=== PATIENT | female | born 1960 | race Caucasian/White ===

== ENCOUNTER → 2020-05-05 15:40 | Outpatient (CLI) | payer BC, SELFPAY ==
--- NOTE | ~2020-05-05 | MM_ITS ---
EXAMINATION: MM screening [facility] BI w [facility] HISTORY: Screening TECHNIQUE: Craniocaudal and mediolateral oblique 3-D tomosynthesis images were obtained and synthetic 2-D images were generated. CAD analysis was submitted and interpreted. COMPARISON: Comparison to multiple prior studies sequentially, with oldest reviewed study dated 01/24. BREAST PARENCHYMAL COMPOSITION: The breasts are extremely dense, which lowers the sensitivity of mamm ography. FINDINGS: There is no evidence of suspicious mass, calcification, or architectural distortion to sugg est malignancy in either breast. There has been no suspicious interval change. IMPRESSION: 1. No mammographic evidence of malignancy. 2. Recommend routine screening mammography in one year. BI-RADS Category 1: Negative Reviewed, dictated and finalized at location A. 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
== END ==
PROVIDERS: Visit Provider Nurse Practitioner Obstetrics & Gynecology
DX: Z12.31 Encounter for screening mammogram for malignant neoplasm of breast (principal)
CPT/HCPCS: 77063; 77067

== ENCOUNTER → 2021-06-17 12:20 | Outpatient (CLI) | payer BC, SELFPAY ==
--- NOTE | ~2021-06-17 | MM_ITS ---
EXAMINATION: MM screening [facility] w [facility] HISTORY: Screening mammogram TECHNIQUE: Craniocaudal and mediolateral oblique 3-D tomosynthesis images were obtained and synthetic 2-D images were generated. CAD analysis was submitted and interpreted. COMPARISON: 05/05/2020, 04/23/2019, 03/14/2018 BREAST PARENCHYMAL COMPOSITION: The breasts are extremely dense, which lowers the sensitivity of mamm ography. FINDINGS: There is no evidence of suspicious mass, calcification, or architectural distortion to sugg est malignancy in either breast. There has been no suspicious interval change. IMPRESSION: 1. No mammographic evidence of malignancy. 2. Recommend routine screening mammography in one year. BI-RADS Category 1: Negative Reviewed, dictated and finalized at location A. 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
== END ==
PROVIDERS: PCP Internal Medicine; Visit Provider Student in an Organized Health Care Education/Training Program
DX: Z12.31 Encounter for screening mammogram for malignant neoplasm of breast (principal)
CPT/HCPCS: 77063; 77067

== ENCOUNTER 2021-07-01 00:15 | Day surgery (SDC) | payer BC, SELFPAY ==
[2021-06-17 14:32] VITALS: BMI 19.6
--- NOTE | 2021-06-30 18:30 | PM.HPGS ---
History of Present Illness History of Present Illness Consent: Risks, benefits, and alternatives have been discussed and questions answered. Patient agrees to proceed with procedure. Chief complaint: change in bowel habits, diarrhea Narrative: Madyson Sims is a 60 year old female referred for colon cancer screening. She has had a change in bowel habits. Her stools have become much softer lately and that seems to take much longer for her to clean after a bowel movement. She has sensation that she is not completely emptied out Review of Systems Review of Systems: All systems reviewed & are unremarkable except as noted in HPI and below PMFSH Past Medical History Medical History Acid reflux Hyperlipidemia Hypertension Post-menopausal Seasonal allergies Seizures Thyroid disorder Surgical History Surgical History H/O partial thyroidectomy [place] teeth removed Family History Family History Sibling Hypertension Malignant neoplasm of prostate Mother Patient's mother is Father Patient's father is Social History Social History Smoking status: Never smoker Alcohol intake: never Living arrangements: with family Spiritual care concerns: No Meds Home Medications and Allergies Home Medications Medication Instructions Recorded Confirmed Type amlodipine 2.5 mg-benazepril 10 mg 1 cap PO DAILY 04/16/21 07/01/21 History capsule azelastine 205.5 mcg (0.15 %) 1 spray INTRANASAL QHS PRN 04/16/21 07/01/21 History nasal spray cholecalciferol (vitamin D3) 25 25 mcg PO DAILY 04/16/21 07/01/21 History mcg (1,000 unit) capsule estradiol 1 g VAGINAL 2XW #42.5 g 04/16/21 07/01/21 Rx famotidine 10 mg tablet 10 mg PO DAILY 04/16/21 07/01/21 History fexofenadine 180 mg tablet 180 mg PO DAILY 04/16/21 07/01/21 History guaifenesin 600 mg tablet, 600 mg PO BID 04/16/21 07/01/21 History extended release 12 hr lamotrigine 200 mg tablet 200 mg PO BID 04/16/21 07/01/21 History levetiracetam 500 mg tablet 500 mg PO Q12H 04/16/21 07/01/21 History levothyroxine 100 mcg tablet 100 mcg PO DAILY 04/16/21 07/01/21 History metoprolol tartrate 25 mg tablet 25 mg PO DAILY tablet 04/16/21 07/01/21 History metronidazole 0.75 % topical cream 1 applic TOPICAL DAILY PRN 04/16/21 07/01/21 History montelukast 10 mg tablet 10 mg PO DAILY 04/16/21 07/01/21 History multivitamin 1 tablet PO DAILY 04/16/21 07/01/21 History vitamin B complex 1 tablet PO DAILY 04/16/21 07/01/21 History simvastatin 40 mg PO DAILY 06/17/21 07/01/21 History Allergies Allergy/AdvReac Type Severity Reaction Status Date / Time ciprofloxacin [From Cipro] Allergy Intermediate Unknown Verified 07/01/21 06:49 latex Allergy Mild RASH ON Verified 07/01/21 06:49 CONTACT cefuroxime Allergy Unknown Unknown Verified 07/01/21 06:49 Contrast Media Allergy Severe HEAD AND Uncoded 07/01/21 06:49 EARS SWELL/RASH Exam Resp: Auscultation: clear to auscultation bilaterally Cardio: Rate: regular rate Rhythm: regular rhythm GI: GI Palp: Yes Soft to palpation and No Tenderness to palpation present (GI) Assessment and Plan Assessment and plan (1) Colon cancer screening: Code(s): Z12.11 - Encounter for screening for malignant neoplasm of colon Status: Acute Assessment and Plan: Colonoscopy with possible biopsy or polypectomy or cautery or injection of substances.
[2021-07-01 06:40] VITALS: BP 126/74; PULSE 85; RESP 16; TEMP 36.4; O2SAT 97; BMI 19.4
[2021-07-01] MEDS: LACTATED RINGERS 1,000 ML 150 ML IV CONT (07:05)
--- NOTE | 2021-07-01 07:12 | WPDANESEPPF ---
Anes - Initial Pre Proc Eval Procedure: Operation Date: 07/01/21 08:00 Proposed Procedures p Colonoscopy - Xander Segura MD Date/Time: 07/01/21 07:12 Surgeon: Xander Segura MD Pre Op Diagnosis: change in bowel habits, diarrhea Patient Data Age: 60 Gender: F Height: 1.7 m Weight: 56.3 kg Last Vital Signs Temp 36.4 C L 07/01/21 06:40 Pulse 85 07/01/21 06:40 Resp 16 07/01/21 06:40 BP 126/74 07/01/21 06:40 Pulse Ox 97 07/01/21 06:40 Allergies Allergy/AdvReac Type Severity Reaction Status Date / Time ciprofloxacin [From Cipro] Allergy Intermediate Unknown Verified 07/01/21 06:49 latex Allergy Mild RASH ON Verified 07/01/21 06:49 CONTACT cefuroxime Allergy Unknown Unknown Verified 07/01/21 06:49 Contrast Media Allergy Severe HEAD AND Uncoded 07/01/21 06:49 EARS SWELL/RASH Home Medications Medication Instructions Recorded Confirmed Type amlodipine 2.5 mg-benazepril 10 mg 1 cap PO DAILY 04/16/21 07/01/21 History capsule azelastine 205.5 mcg (0.15 %) 1 spray INTRANASAL QHS PRN 04/16/21 07/01/21 History nasal spray cholecalciferol (vitamin D3) 25 25 mcg PO DAILY 04/16/21 07/01/21 History mcg (1,000 unit) capsule estradiol 1 g VAGINAL 2XW #42.5 g 04/16/21 07/01/21 Rx famotidine 10 mg tablet 10 mg PO DAILY 04/16/21 07/01/21 History fexofenadine 180 mg tablet 180 mg PO DAILY 04/16/21 07/01/21 History guaifenesin 600 mg tablet, 600 mg PO BID 04/16/21 07/01/21 History extended release 12 hr lamotrigine 200 mg tablet 200 mg PO BID 04/16/21 07/01/21 History levetiracetam 500 mg tablet 500 mg PO Q12H 04/16/21 07/01/21 History levothyroxine 100 mcg tablet 100 mcg PO DAILY 04/16/21 07/01/21 History metoprolol tartrate 25 mg tablet 25 mg PO DAILY tablet 04/16/21 07/01/21 History metronidazole 0.75 % topical cream 1 applic TOPICAL DAILY PRN 04/16/21 07/01/21 History montelukast 10 mg tablet 10 mg PO DAILY 04/16/21 07/01/21 History multivitamin 1 tablet PO DAILY 04/16/21 07/01/21 History vitamin B complex 1 tablet PO DAILY 04/16/21 07/01/21 History simvastatin 40 mg PO DAILY 06/17/21 07/01/21 History Patient hx anesthesia problems: none Family hx anesthesia problems: none Results Review: All pre-operative results and documents have been reviewed as part of the pre-operative evaluation. [facility] Past Medical History Medical History Acid reflux Hyperlipidemia Hypertension Post-menopausal Seasonal allergies Seizures Thyroid disorder Surgical History Surgical History H/O partial thyroidectomy [place] teeth removed Family History Family History Sibling Hypertension Malignant neoplasm of prostate Mother Patient's mother is Father Patient's father is Social History Social History Smoking status: Never smoker Alcohol intake: never Living arrangements: with family Spiritual care concerns: No Anes - Eval Final PreProcedure Day of Procedure 07/01/21 07:12 Patient weight: normal Heart: regular rate and rhythm Lungs: clear to auscultation Airway: Mallampati scale class II Neurological: alert and oriented Last oral intake: >/= 8 hours ASA classification: III Emergent: no Anesthetic plan: proceed Anesthesia type and monitoring: general GIVS and standard monitoring Results Review: All pre-operative results and documents have been reviewed as part of the pre-operative evaluation. Informed Consent: The patient's anesthetic plan and its attendant risks and benefits were discussed with the patient/family/POA. Questions were solicited and answers provided to the satisfaction of the patient/family/POA.
[2021-07-01 08:24] VITALS: BP 96/61; PULSE 75; RESP 14; O2SAT 99
[2021-07-01 08:34] VITALS: BP 125/81; PULSE 68; RESP 15; O2SAT 100
[2021-07-01 08:44] VITALS: BP 146/87; PULSE 70; RESP 18; O2SAT 100
== END 2021-07-01 08:55 | disposition home or self-care (01) ==
PROVIDERS: PCP Internal Medicine; Visit Provider Internal Medicine Gastroenterology
PROC: 0DJD8ZZ Inspection of Lower Intestinal Tract, Via Natural or Artificial Opening Endoscopic (ICD-10-PCS; CPT 45378; principal; 2021-07-01 08:00)
DX: Z12.11 Encounter for screening for malignant neoplasm of colon (principal); R19.4 Change in bowel habit; K21.9 Gastro-esophageal reflux disease without esophagitis; E78.5 Hyperlipidemia, unspecified; I10 Essential (primary) hypertension; R56.9 Unspecified convulsions
CPT/HCPCS: 45378; J2704; J7120

== ENCOUNTER → 2021-11-11 10:48 | Outpatient (CLI) | payer BC, SELFPAY ==
--- NOTE | ~2021-11-11 | US_ITS ---
EXAMINATION: US pelvic complete w TV DATE: 11/11/2021 11:23 INDICATION: Pelvic and perineal pain. Right lower quadrant pain. Bloating. Comparison:No prior studies for comparison. TECHNIQUE: Multiple transabdominal and endovaginal sonographic images of the pelvis performed. FINDINGS: The uterus measures 4.8 x 1.9 x 2.6 cm. The endometrial complex measures 3 mm. The right ovary is not visualized. The left ovary is atrophic measuring 1.8 x 1.3 x 1 cm with normal flow in follicular changes. There is no free fluid in the pelvis. There are no abnormal masses seen on either side. IMPRESSION: 1. Unremarkable pelvic ultrasound. Reviewed, dictated and finalized at location A.
== END ==
PROVIDERS: PCP Internal Medicine; Visit Provider Student in an Organized Health Care Education/Training Program
DX: R10.2 Pelvic and perineal pain (principal)
CPT/HCPCS: 76830; 76856

== ENCOUNTER 2022-01-27 17:24 | Observation (INO) | payer BC, SELFPAY ==
--- NOTE | ~2022-01-27 | MR_ITS ---
EXAMINATION: MR brain/brain stem wo con DATE: 01/28/2022 08:53 INDICATION: Right eye visual loss. Facial numbness. TECHNIQUE: Magnetic resonance imaging (MRI) of the brain and brainstem was performed without intraven ous contrast. COMPARISON: Head CT 01/27/2022 FINDINGS: There are scattered areas of nonspecific increased T2-weighted signal intensity in the cere bral white matter, which is within normal limits for the patient's age. There is hutton matter heteroto wendi in right frontal lobe. There is no intracranial hemorrhage, acute infarction, or abnormal intracr anial mass lesion. The ventricles are normal in size. Septum pellucidum is absent. The orbits are nor mal. There is mild mucosal thickening in the paranasal sinuses. The mastoid air cells are normal. IMPRESSION: 1. 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 2. Absent septum pellucidum. Reviewed, dictated and finalized at location A.
--- NOTE | ~2022-01-27 | US_ITS ---
EXAMINATION: US carotid duplex BI DATE: 01/28/2022 09:12 INDICATION: Transient ischemic attack. TECHNIQUE: Grayscale, color Doppler, and pulsed Doppler images of the cervical carotid arteries were obtained. The degree of vessel stenosis is placed in one of the following categories: normal, <50%, 5 0-69%, >=70% but less than near-occlusion, near-occlusion, or total occlusion. Note that percent sten osis relative to normal distal artery lumen diameter is indirectly measured from velocity measurement s as described by Mp, et al. Radiology 2003; 229:340-346. COMPARISON: None. FINDINGS: RIGHT: The right common carotid artery (CCA) peak systolic velocity (PSV) is 106 cm/s. The right internal ca rotid artery (ICA) PSV is 113 cm/s. The right ICA end-diastolic velocity (EDV) is 49 cm/s. The right ICA/CCA PSV ratio is 1.1. Grayscale and color Doppler images yield an estimate of <50% diameter reduc tion from plaque in the ICA. There is antegrade flow in the right vertebral artery. LEFT: The left CCA PSV is 90 cm/s. The left ICA PSV is 89 cm/s. The left ICA EDV is 35 cm/s. The left ICA/C CA PSV ratio is 1.0. Grayscale and color Doppler images yield an estimate of <50% diameter reduction from plaque in the ICA. There is antegrade flow in the left vertebral artery. IMPRESSION: 1. <50% stenosis in the right internal carotid artery. 2. <50% stenosis in the left internal carotid artery. Reviewed, dictated and finalized at location A.
--- NOTE | ~2022-01-27 | CT_ITS ---
EXAMINATION: CT brain wo con DATE: 01/27/2022 19:25 INDICATION: Facial numbness. Right eye blindness. TECHNIQUE: Computed tomography (CT) of the head was performed without intravenous contrast. The dose- length product was 605.33 mGy-cm. Automated exposure control and iterative reconstruction technique w ere employed. COMPARISON: None FINDINGS: Brain parenchymal volume is normal for age. There are scattered mild periventricular and gabriel bcortical white matter changes, most likely related to small vessel ischemic disease (microangiopathy ). No ventriculomegaly or significant midline shift. Basilar cisterns are patent. There is intracrani al atherosclerosis. Mildly prominent dural calcifications along the anterior interhemispheric fissure . Paranasal sinuses and mastoids are pneumatized. No depressed skull fractures. IMPRESSION: 1. No acute intracranial abnormality. 2: Chronic age-related findings. Reviewed, dictated and finalized at location A.
--- NOTE | ~2022-01-27 | XR_ITS ---
XR chest 2V DATE: 01/27/2022 18:06 INDICATION: Visual problems yesterday and facial tingling today TECHNIQUE: PA and lateral views COMPARISON: 05/09/2018 PA and lateral chest FINDINGS: Bilateral hyperinflation suggesting obstructive airways disease. No pulmonary infiltrate or consolidation, pleural effusion or pulmonary vascular congestion or pneumothorax. Normal heart size. No hilar or mediastinal enlargement. Mild degenerative spurring of the thoracic spine. IMPRESSION: Bilateral hyperinflation; no active cardiopulmonary disease or significant change since Reviewed, dictated and finalized at location B. IMPRESSION: Bilateral hyperinflation; no active cardiopulmonary disease or sign ificant change since 05/09/2018
[2022-01-27 17:26] VITALS: BP 148/85; PULSE 78; RESP 16; TEMP 36.4; O2SAT 100
--- NOTE | 2022-01-27 17:29 | PC.NURSE ---
BS in triage 99
[2022-01-27 17:30] LABS: Glucose Point of Care 99 mg/dl (65-105)
--- NOTE | 2022-01-27 17:30 | ECG_ITS ---
Measurements Intervals [place] Rate: 73 P: 70 [place]: 193 QRS: 83 QRSD: 119 T: 59 QT: 406 QTc: 448 Interpretive Statements SINUS RHYTHM INCOMPLETE RIGHT BUNDLE BRANCH BLOCK BORDERLINE ST ABNORMALITY- ANTERIOR LEADS BASELINE ARTIFACT- I, AVR BORDERLINE ECG NO PREVIOUS ECG AVAILABLE FOR COMPARISON Electronically Signed On 01-27-2022 21:18:06 CDT by Haile Mcpherson D.O.
[2022-01-27 17:44] LABS: Basophils Percent Auto 0.5 % (0.2-1.2); Eosinophils Absolute Auto 0.1 K/mm3 (0-0.3); Eosinophils Percent Auto 1.2 % (0-4.4); Hematocrit 34.9 % (37.0-47.0); Hemoglobin 11.4 g/dL (12.0-15.0); Immature Granulocyte Absolute 0.01 K/mm3 (0.00-0.031); Immature Granulocyte Percent A 0.2 % (0-0.5); Lymphocytes Absolute Auto 1.38 K/mm3 (0.9-3.2); Lymphocytes Percent Auto 32.3 % (18.3-44.2); Mean Corpuscular HGB Conc 32.7 g/dl (32-36); Mean Corpuscular Volume 101.2 fl (80-100); Mean Platelet Volume 9.3 fl (7.4-10.4); Monocytes Absolute Auto 0.6 K/mm3 (0.1-0.6); Monocytes Percent Auto 13.6 % (2.6-8.5); Neutrophils Absolute Auto 2.2 K/mm3 (1.3-6.7); Neutrophils Percent Auto 52.2 % (45.5-73.1); Platelet Count Result 224 k/mm3 (150-375); Red Blood Count 3.45 M/mm3 (4.2-5.4); Red Cell Distribution Width 12.3 % (11.5-14.5); White Blood Count 4.3 K/mm3 (4.5-10.0)
[2022-01-27 17:53] LABS: Alanine Aminotransferase 19 U/L (6-35); Albumin Level 4.9 g/dL (3.5-5.1); Alkaline Phosphatase 120 U/L (38-126); Anion Gap 10 mmol/L (8-16); Aspartate Amino Transferase 27 U/L (14-36); Bilirubin,Total 0.6 mg/dL (0.2-1.3); Blood Urea Nitrogen 22 mg/dL (7-17); Calcium 9.9 mg/dL (8.4-10.2); Carbon Dioxide 27 mmol/L (22-30); Chloride 101 mmol/L (98-107); Estimated CRCL calculation 52 ml/min; Estimated Glomerular Filt Rate > 60; Glucose 100 mg/dL (65-110); INR 1.1; Lipase 247 U/L (23-300); Potassium 4.5 mmol/L (3.4-5.0); Prothrombin Time 13.6 Seconds (11.1-14.7); Sodium 138 mmol/L (137-145)
[2022-01-27 18:10] LABS: Troponin I < 0.012 ng/mL (0.000-0.034)
--- NOTE | 2022-01-27 19:15 | PC.NURSE ---
Patient report given to JACKY Galicia. All questions answered and care of patient transferred.
[2022-01-27 19:16] VITALS: PULSE 69
[2022-01-27 19:17] VITALS: BP 146/76; PULSE 70; RESP 12; O2SAT 100
--- NOTE | 2022-01-27 19:59 | ED.GENADULT ---
HPI - General Adult General Chief complaint: Unspecified Stated complaint: seeing meeks spots/facial tingling Time Seen by Provider: 01/27/22 19:05 History of Present Illness HPI narrative: yesterday afternoon patient stated that she noticed that her entire field of her right eye was blurry, this has never happened to her before, she saw an eye doctor the next day (today) who did a dilated pupil exam that was normal for detachment. About an hour afterwards she started feeling numbness in her entire face. Denies any weakness or numbness anywhere else, she does have a history of seizures for which she is on Keppra and lamotrigine and she has never had symptoms like this before with her seizures. She states that her symptoms have now largely resolved. Related Data Home Medications Medication Instructions Recorded Confirmed amlodipine 2.5 mg-benazepril 10 mg 1 cap PO DAILY 04/16/21 07/01/21 capsule azelastine 205.5 mcg (0.15 %) 1 spray intranasal QHS PRN Nasal 04/16/21 07/01/21 nasal spray Congestion cholecalciferol (vitamin D3) 25 25 mcg PO DAILY 04/16/21 07/01/21 mcg (1,000 unit) capsule famotidine 10 mg tablet 10 mg PO DAILY 04/16/21 07/01/21 fexofenadine 180 mg tablet 180 mg PO DAILY 04/16/21 07/01/21 (Amy Allergy) guaifenesin 600 mg tablet, 600 mg PO BID 04/16/21 07/01/21 extended release 12 hr (Mucinex) lamotrigine 200 mg tablet 200 mg PO BID 04/16/21 07/01/21 levetiracetam 500 mg tablet 500 mg PO Q12H 04/16/21 07/01/21 (Keppra) levothyroxine 100 mcg tablet 100 mcg PO DAILY 04/16/21 07/01/21 (Synthroid) metoprolol tartrate 25 mg tablet 25 mg PO DAILY 04/16/21 07/01/21 metronidazole 0.75 % topical cream 1 applic topical DAILY PRN Rosacia 04/16/21 07/01/21 montelukast 10 mg tablet 10 mg PO DAILY 04/16/21 07/01/21 multivitamin (Daily Multi-Vitamin 1 tablet PO DAILY 04/16/21 07/01/21 tablet) vitamin B complex (B 1 tablet PO DAILY 04/16/21 07/01/21 Complex-Vitamin B12 tablet) simvastatin 40 mg tablet 40 mg PO DAILY 06/17/21 07/01/21 Allergies Allergy/AdvReac Type Severity Reaction Status Date / Time ciprofloxacin [From Cipro] Allergy Intermediate Unknown Verified 11/04/21 08:23 latex Allergy Mild RASH ON Verified 11/04/21 08:23 CONTACT cefuroxime Allergy Unknown Unknown Verified 11/04/21 08:23 Contrast Media Allergy Severe HEAD AND Uncoded 11/04/21 08:23 EARS SWELL/RASH Review of Systems Review of Systems: CONST: No fever. HEENT: Right eye vision loss that is now resolved C/V: No chest pain RESP: No cough GI: No nausea or vomiting : No dysuria. M/S: No joint pain. SKIN: No rash. NEURO: No headache, did have numbness in her face that is now resolving PSYCH: [No depression] PMFSH Past Medical History Medical History Acid reflux Hyperlipidemia Hypertension Ovarian cyst Post-menopausal Seasonal allergies Seizures Thyroid disorder Surgical History Surgical History H/O partial thyroidectomy [place] teeth removed Family History Family History Sibling Hypertension Malignant neoplasm of prostate Mother Patient's mother is Father Patient's father is Social History Social History Smoking status: Never smoker Alcohol intake: never Spiritual care concerns: No Exam Narrative: EXAMINATION OF ORGAN SYSTEMS/BODY AREAS: Constitutional: Vital signs per nursing GENERAL:[No acute distress, non-toxic appearing.] HEAD: Normal with no signs of head trauma. EYES: EOMI, conjunctiva normal, PERRL, VA intact bilaterally with normal visual may ENT: Hearing grossly intact; subjective numbness to face but no facial weakness, droop LUNGS: Nonlabored breathing. HEART: [Regular rate and rhythm] ABD: [Soft], [nontender to palpatio
[2022-01-27] MEDS: ASPIRIN 81 MG CHEWABLE TABLET 324 MG PO (21:04)
[2022-01-27 21:45] VITALS: BP 142/78; PULSE 72; RESP 15; TEMP 36.6; O2SAT 100
[2022-01-27 21:47] LABS: Troponin I < 0.012 ng/mL (0.000-0.034)
[2022-01-27 22:00] VITALS: BP 140/73; PULSE 73; RESP 18; TEMP 36.1; O2SAT 100
[2022-01-27 22:16] LABS: SARS-CoV-2 RNA PCR Negative
--- NOTE | 2022-01-27 22:16 | ADMGEN ---
This patient, Madyson Sims, was admitted to Medical Room 257-01. Patient/family oriented to hospital policies and general routines including ID bracelet, bed and alarms, visiting hours, pain management, procedures, bathroom and other care routines, personal items, smoking policy, room service/diet, and visiting hours. Information on how to activate the Rapid Response Team has been discussed. Patient/Family are encouraged to report perceived risks to care and to ask questions if they do not understand what they are told or what they should do.
[2022-01-27 22:24] VITALS: BMI 19.8
[2022-01-27 22:25] VITALS: BP 140/73; PULSE 73; RESP 18; TEMP 36.1; O2SAT 100
--- NOTE | 2022-01-27 23:27 | PM.IMHP ---
H&P: HPI History of Present Illness Date/Time: 01/27/22 23:27 Chief Complaint: blurry vision Narrative: patient comes to the ER with right visual changes and numbness in her entire face. She states that she notice right eye was blurry entirely yesterday which is only in the upper border of for high and when she got up this was already resolved. She went to see an eye doctor today when she had a dilated pupil exam and was negative for any retinal abnormality. she was suggested diagnosis stroke is a possibility. While coming back from the appointment, She started feeling numbness in her entire face and hence she came to the ER for further evaluation. She denies any weakness and numbness anywhere else. She does have history of seizure but has not had any seizures for many years. She is on Keppra and lamotrigine which she regularly takes. She states her symptoms are completely resolve with her patient back to normal. She has not had any transient vision loss history in the past. He has history of hypertension hypothyroidism and hyperlipidemia. Delete that CT head done in the ER was negative for any acute stroke she is getting admitted for further evaluation and management. Review of Systems Review of Systems: - CONSTITUTIONAL: Denies weight loss, fever and chills. - HEENT: Denies changes in vision and hearing - RESPIRATORY: Denies SOB and cough. - CV: Denies palpitations and CP. - GI: Denies abdominal pain, nausea, vomiting and diarrhea. - : Denies dysuria and urinary frequency. - MSK: Denies myalgia and joint pain. - SKIN: Denies rash and pruritus. - NEUROLOGICAL: Denies headache and syncope. See HPI - PSYCHIATRIC: Denies recent changes in mood. Denies anxiety and depression. [facility] Past Medical History Medical History (Updated 01/27/22 @ 23:30 by Baljeet Laureano MD) Acid reflux Hyperlipidemia Hypertension Ovarian cyst Post-menopausal Seasonal allergies Seizures Thyroid disorder Surgical History Surgical History H/O partial thyroidectomy [place] teeth removed Family History Family History Sibling Hypertension Malignant neoplasm of prostate Mother Patient's mother is Father Patient's father is Social History Social History Smoking status: Never smoker Alcohol intake: never Substance use: never Spiritual care concerns: No Meds Home Medications and Allergies Home Medications Medication Instructions Recorded Confirmed Type amlodipine 2.5 mg-benazepril 10 mg 1 cap PO DAILY 04/16/21 01/27/22 History capsule azelastine 205.5 mcg (0.15 %) 1 spray intranasal QHS PRN Nasal 04/16/21 01/27/22 History nasal spray Congestion cholecalciferol (vitamin D3) 25 25 mcg PO DAILY 04/16/21 01/27/22 History mcg (1,000 unit) capsule famotidine 10 mg tablet 20 mg PO DAILY 04/16/21 01/27/22 History fexofenadine 180 mg tablet 180 mg PO DAILY 04/16/21 01/27/22 History (Amy Allergy) guaifenesin 600 mg tablet, 600 mg PO DAILY 04/16/21 01/27/22 History extended release 12 hr (Mucinex) lamotrigine 200 mg tablet 200 mg PO BID 04/16/21 01/27/22 History levetiracetam 500 mg tablet 500 mg PO Q12H 04/16/21 01/27/22 History (Keppra) levothyroxine 100 mcg tablet 100 mcg PO DAILY 04/16/21 01/27/22 History (Synthroid) metoprolol tartrate 25 mg tablet 25 mg PO DAILY 04/16/21 01/27/22 History metronidazole 0.75 % topical cream 1 applic topical DAILY PRN Rosacia 04/16/21 01/27/22 History montelukast 10 mg tablet 10 mg PO DAILY 04/16/21 01/27/22 History multivitamin (Daily Multi-Vitamin 1 tablet PO DAILY 04/16/21 01/27/22 History tablet) vitamin B complex (B 1 tablet PO DAILY 04/16/21 01/27/22 History Complex-Vitamin B12 tablet) simvastatin 40 mg tablet 40 mg PO DAILY 06/17/2101/27
[2022-01-28] VITALS (10 sets, daily range): BP systolic 112–127; BP diastolic 66–68; PULSE 72–89; RESP 14–16; TEMP 36.3–36.7; O2SAT 98–100
--- NOTE | 2022-01-28 | ECHO_ITS ---
Patient Info Name: Madyson Sims Age: 61 years : 1960 Gender: Female Ht: 67 in Wt: 126 lbs BSA: 1.64 m2 HR: 76 bpm BP: 112 / 66 mmHg Heart Rhythm: Sinus Rhythm Exam Date: 01/28/2022 2:06 PM Exam Location: [facility] Patient Status: Outpatient Admit Date: 01/27/2022 Staff Ordering Physician: Baljeet Laureano MD Clearance Coordinator: Paco Soler, JOSEPHINE, RT Attending Provider: Marilynn Bennett Exam Type: CA echo doppler color flow Study Info Indications - TIA Complete two-dimensional, color flow and Doppler transthoracic echocardiogram is performed. Strain analysis performed. Summary 1. Complete two-dimensional, color flow and Doppler transthoracic echocardiogram is performed. 2. Left ventricular chamber dimension is normal. 3. Left ventricular systolic function is normal, estimated at 65-70%. 4. No significant valvular dysfunction. 5. Normal sinus rhythm. 6. No likely cardioembolic source was identified. Left Ventricle Left ventricular chamber dimension is normal. Left ventricular systolic function is normal, estimated at 65-70%. The left ventricular diastolic function is normal. Global longitudinal strain is normal at 22 %. Right Ventricle Right ventricular chamber dimension is normal. Right ventricular systolic function is normal. Left Atria Left atrial chamber dimension is mildly enlarged. Right Atria Right atrial chamber dimension is normal. Aortic Valve The aortic valve is normal. Pulmonic Valve The pulmonic valve is normal. Mitral Valve The mitral valve has normal leaflets. The mitral valve annulus is mildly calcified. Tricuspid Valve The tricuspid valve leaflets are normal. There is trace tricuspid valve regurgitation. Pericardium/Pleural The pericardium appears normal. Aorta The aortic root size at the sinus of Valsalva is normal. Left Ventricular Outflow Tract Name Value Normal LVOT 2D LVOT Diameter 2.0 cm LVOT Doppler LVOT Peak Gradient 4 mmHg LVOT Mean Gradient 2 mmHg LVOT VTI 22 cm LVOT VTI/AV VTI Ratio 0.9 LVOT Stroke Volume 67 ml LVOT CO 5.4 l/min LVOT CI 3.3 l/min/m2 Mitral Valve Name Value Normal MV Doppler MV [place] 511 cm/s2 MV PHT 67 ms MV Area (PHT) 3.3 cm2 4.0-5.0 MV Diastolic Function MV E Peak Velocity 118 cm/s MV A Peak Velocity 85 cm/s MV E/A 1.4 MV Decel Time 2
[2022-01-28] MEDS: levETIRAcetam 500 MG TABLET PO ×3 (00:03→20:31)
[2022-01-28] MEDS: lamoTRIgine 100 MG TABLET 200 MG PO ×3 (00:03→20:31)
[2022-01-28 02:14] LABS: Cholesterol 164 mg/dL (0-200); HDL Direct 91 mg/dL; Triglycerides 38 mg/dL (<150)
[2022-01-28 02:28] LABS: Hemoglobin A1C 5.1 % (<5.7)
[2022-01-28 02:43] LABS: Erythrocyte Sedimentation Rate 22 mm/hr (0-20)
[2022-01-28 02:46] LABS: LDL Cholesterol Direct 45 mg/dL
[2022-01-28 02:47] LABS: Troponin I < 0.012 ng/mL (0.000-0.034)
[2022-01-28] MEDS: LEVOTHYROXINE SODIUM 100 MCG TABLET PO (06:53)
[2022-01-28] MEDS: guaiFENesin 12 HR 600 MG TABCR PO (09:37)
[2022-01-28] MEDS: VITAMIN B COMPLEX CAPSULE 1 CAP PO (09:37)
[2022-01-28] MEDS: lisinopriL 10 MG TABLET PO (09:38)
[2022-01-28] MEDS: MULTIVITAMINS THERAPEUTIC TAB (*BKC) 1 TABLET PO (09:38)
[2022-01-28] MEDS: SIMVASTATIN 20 MG TABLET 40 MG PO (09:38)
[2022-01-28] MEDS: CHOLECALCIFEROL 1,000 UNITS TABLET 1000 UNITS PO (09:39)
[2022-01-28] MEDS: amLODIPine BESYLATE 2.5 MG TABLET BY MOUTH (09:39)
[2022-01-28] MEDS: METOPROLOL SUCCINATE EXT REL 25 MG TABCR PO (09:40)
[2022-01-28] MEDS: MONTELUKAST SODIUM 10 MG TABLET PO (09:40)
[2022-01-28] MEDS: LORATADINE 10 MG TABLET PO (09:44)
[2022-01-28] MEDS: FAMOTIDINE 20 MG TABLET PO (09:44)
--- NOTE | 2022-01-28 11:08 | PM.IMPN ---
Progress Note: A&P Assessment and Plan (1) Facial numbness: Code(s): R20.0 - Anesthesia of skin Status: Acute Assessment and Plan: Now resolved etiology unknown labs unremarkable consult Neurology (2) Blurry vision, right eye: Code(s): H53.8 - Other visual disturbances Status: Acute Assessment and Plan: blurriness has resolved, however patient now has pain In the eye. Question ocular migraine?? 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 ECHO ordered (3) Seizures: Code(s): R56.9 - Unspecified convulsions Status: Acute Assessment and Plan: continue Keppra and lamotrigine patient follows with Neurology at [place] has been seizure-free since 2009 patient's symptoms were not of her typical aura (4) Hypertension: Code(s): I10 - Essential (primary) hypertension Status: Acute Assessment and Plan: Blood pressures have been Continue home medications. (5) Hyperlipidemia: Code(s): E78.5 - Hyperlipidemia, unspecified Status: Acute Assessment and Plan: Continue statin therapy (6) Thyroid disorder: Code(s): E07.9 - Disorder of thyroid, unspecified Status: Acute Assessment and Plan: continue levothyroxine Plan plan to discharge after ECHO and neurology evaluation and recommendations. Time Spent With Patient Time with patient: 15 - 25 minutes Subjective Date/time seen: 01/28/22 0713 this patient was examined at the bedside today in interval assessment since being admitted to the hospital for observation after presenting to the emergency room with complaints of having visual change of blurry vision in the right eye only of the upper hemisphere of her field of vision. She stated that this started approximately 1 and half to 2 days ago and was persistent until yesterday morning before going to see her Council Member. She states nothing was found on her eye exam and she return to work as normal. As the day went on she endorses that she began feeling a sensation of tingling on both sides of her face. There was no associated weakness, change in speech or any inability to blink or swallow. She called her physician who prompted her to route present to the emergency room immediately. In the emergency room CT of the head was performed that was negative for any acute findings. In addition her lab data was unremarkable. It is noted that she does have a history of seizure disorder that is controlled with Lamotrigine 200 mg b.i.d. and Keppra 500 mg q.12 hours. She follows with neurologist at [facility] and her last seizure was in 2009. She denies that any of her symptoms that she presented with is an aura that she experiences before any seizures. She states that last evening her sensation of tingling of her face finally subsided and her only sensation she has now is of an ache in her right eye. She denies any overt headache and she denies any nausea or vomiting. She has otherwise been in a normal state of health. She has no current complaints of chest pain, dyspnea, nausea, vomiting, diarrhea. Patient has an allergy to all contrast media therefore CTA was unable to be performed. In addition patient refused to have MRI with contrast. 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 she had carotid Dopplers performed that demonstrated less than 50% stenosis bilaterally and she had CT of the head that was negative. Review of Systems Review of Systems: All systems reviewed & are unremarkable except as noted in HPI and b
--- NOTE | 2022-01-28 14:34 | WPDNEURCNPN ---
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 echocardiogram is being done further recommendation will be according Consult date: 01/28/22 Time Seen: 13:30 Reason for consult: possible stroke HPI: Madyson Sims is a 61 year old female admitted to the hospital through the emergency room with complaints that her entire field of her right eye was blurry and it has never happened before she saw the primary care sales representative on day of admission who dilated the eyes there was no evidence of retinal detachment but then she started having the numbness of the entire face patient is known to be epileptic and has been on Keppra along with lamotrigine her other medications included amlodipine 2.5 mg with benazepril 10 mg daily. 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 lobe and echocardiogram is pending Review of Systems Review of Systems: All systems reviewed & are unremarkable except as noted in HPI and below PMFSH Past Medical History Medical History (Updated 01/27/22 @ 23:30 by Baljeet Laureano MD) Acid reflux Hyperlipidemia Hypertension Ovarian cyst Post-menopausal Seasonal allergies Seizures Thyroid disorder Surgical History Surgical History H/O partial thyroidectomy [place] teeth removed Family History Family History Sibling Hypertension Malignant neoplasm of prostate Mother Patient's mother is Father Patient's father is Social History Social History Smoking status: Never smoker Alcohol intake: never Substance use: never Spiritual care concerns: No Meds Home Medications and Allergies Home Medications Medication Instructions Recorded Confirmed Type amlodipine 2.5 mg-benazepril 10 mg 1 cap PO DAILY 04/16/21 01/27/22 History capsule azelastine 205.5 mcg (0.15 %) 1 spray intranasal QHS PRN Nasal 04/16/21 01/27/22 History nasal spray Congestion cholecalciferol (vitamin D3) 25 25 mcg PO DAILY 04/16/21 01/27/22 History mcg (1,000 unit) capsule famotidine 10 mg tablet 20 mg PO DAILY 04/16/21 01/27/22 History fexofenadine 180 mg tablet 180 mg PO DAILY 04/16/21 01/27/22 History (Amy Allergy) guaifenesin 600 mg tablet, 600 mg PO DAILY 04/16/21 01/27/22 History extended release 12 hr (Mucinex) lamotrigine 200 mg tablet 200 mg PO BID 04/16/21 01/27/22 History levetiracetam 500 mg tablet 500 mg PO Q12H 04/16/21 01/27/22 History (Keppra) levothyroxine 100 mcg tablet 100 mcg PO DAILY 04/16/21 01/27/22 History (Synthroid) metoprolol tartrate 25 mg tablet 25 mg PO DAILY 04/16/21 01/27/22 History metronidazole 0.75 % topical cream 1 applic topical DAILY PRN Rosacia 04/16/21 01/27/22 History montelukast 10 mg tablet 10 mg PO DAILY 04/16/21 01/27/22 History multivitamin (Daily Multi-Vitamin 1 tablet PO DAILY 04/16/21 01/27/22 History tablet) vitamin B complex (B 1 tablet PO DAILY 04/16/21 01/27/22 History Complex-Vitamin B12 tablet) simvastatin 40 mg tablet 40 mg PO DAILY 06/17/21 01/27/22 History Allergies Allergy/AdvReac Type Severity Reaction Status Date / Time ciprofloxacin [From Cipro] Allergy Intermediate Unknown Verified 11/04/21 08:23 latex Allergy Mild RASH ON Verified 11/04/21 08:23 CONTACT cefuroxime Allergy Unkn
[2022-01-29] VITALS: PULSE 82
[2022-01-29 04:00] VITALS: PULSE 73
[2022-01-29 04:27] VITALS: BP 116/67; PULSE 66; RESP 18; TEMP 35.8; O2SAT 99
[2022-01-29] MEDS: LEVOTHYROXINE SODIUM 100 MCG TABLET PO (05:52)
[2022-01-29 06:17] LABS: Basophils Percent Auto 0.4 % (0.2-1.2); Eosinophils Absolute Auto 0.1 K/mm3 (0-0.3); Eosinophils Percent Auto 1.6 % (0-4.4); Hematocrit 36.2 % (37.0-47.0); Hemoglobin 11.7 g/dL (12.0-15.0); Immature Granulocyte Absolute 0.02 K/mm3 (0.00-0.031); Immature Granulocyte Percent A 0.4 % (0-0.5); Lymphocytes Absolute Auto 1.56 K/mm3 (0.9-3.2); Lymphocytes Percent Auto 34.7 % (18.3-44.2); Mean Corpuscular HGB Conc 32.3 g/dl (32-36); Mean Corpuscular Hemoglobin 32.8 pg (26-34); Mean Corpuscular Volume 101.4 fl (80-100); Mean Platelet Volume 9.1 fl (7.4-10.4); Monocytes Absolute Auto 0.6 K/mm3 (0.1-0.6); Monocytes Percent Auto 12.2 % (2.6-8.5); Neutrophils Absolute Auto 2.3 K/mm3 (1.3-6.7); Neutrophils Percent Auto 50.7 % (45.5-73.1); Platelet Count Result 216 k/mm3 (150-375); Red Blood Count 3.57 M/mm3 (4.2-5.4); Red Cell Distribution Width 12.2 % (11.5-14.5); White Blood Count 4.5 K/mm3 (4.5-10.0)
[2022-01-29 06:31] LABS: Alanine Aminotransferase 18 U/L (6-35); Albumin Level 4.3 g/dL (3.5-5.1); Alkaline Phosphatase 103 U/L (38-126); Anion Gap 8 mmol/L (8-16); Aspartate Amino Transferase 24 U/L (14-36); Bilirubin,Total 0.6 mg/dL (0.2-1.3); Blood Urea Nitrogen 20 mg/dL (7-17); Calcium 9.4 mg/dL (8.4-10.2); Carbon Dioxide 30 mmol/L (22-30); Chloride 100 mmol/L (98-107); Estimated CRCL calculation 43 ml/min; Estimated Glomerular Filt Rate 50; Glucose 95 mg/dL (65-110); Magnesium 2.1 mg/dL (1.6-2.3); Sodium 138 mmol/L (137-145)
--- NOTE | 2022-01-29 07:12 | P.DS_ITS ---
DS: Admitting Diagnosis Discharge Date 01/29/2022 Admitting Diagnosis Facial numbness, blurry vision, seizures, hypertension, hyperlipidemia, thyroid disorder DS: Discharge Diagnosis Discharge Diagnosis (1) Facial numbness: Code(s): R20.0 - Anesthesia of skin Status: Acute Assessment and Plan: * Now resolved * etiology unknown * labs unremarkable * consult Neurology * 01/29/22: Will discharge today. 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 Unable to perform CTA and MRI with contrast secondary to patient's contrast allergy. ECHO resulted with normal LVSF with EF of 65-70%, normal diastolic function, and normal right ventricular function as well. (2) Blurry vision, right eye: Code(s): H53.8 - Other visual disturbances Status: Acute Assessment and Plan: * blurriness has resolved, however patient now has pain In the eye. * Question ocular migraine?? 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 * ECHO ordered * 01/29/22: See plan #1 (3) Seizures: Code(s): R56.9 - Unspecified convulsions Status: Acute Assessment and Plan: * continue Keppra and lamotrigine * patient follows with Neurology at [place] * has been seizure-free since 2009 * patient's symptoms were not of her typical aura (4) Hypertension: Code(s): I10 - Essential (primary) hypertension Status: Acute Assessment and Plan: * Blood pressures have been * Continue home medications. (5) Hyperlipidemia: Code(s): E78.5 - Hyperlipidemia, unspecified Status: Acute Assessment and Plan: * Continue statin therapy (6) Thyroid disorder: Code(s): E07.9 - Disorder of thyroid, unspecified Status: Acute Assessment and Plan: * continue levothyroxine Plan plan to discharge after ECHO and neurology evaluation and recommendations. DS: Summary Hospital Course Reason for hospitalization: Blurry Vision Hospital Course: This pleasant 61 year old female patient with significant PMH of seizure disord er, controlled well with last seizure in 2009, followed by Neurology at [facility], HTN, HLD, and hypothyroidism presented to the ER on 01/27/22 with complaints of having blurry vision in her right eye in the upper hemisphere field of vision only that had resolved, but she sought out exam by Opthalmology anyway and there were no acute findings. After seeing her artificial glass eye maker, she began having numbness/tingling in her face on both sides. It lasted well after the time she presented to the hospital. She never had any change in her speech and she never had any change in her gait. In the ER CT of the brain was performed and it was negative for any acute findings. Pt. was admitted for further workup and after admission, her tingling her symptoms further resolved. She had a negative MRI without contrast, and normal Carotid dopplers in addition to a normal ECHO with 65-70% EF and no cardioembolic source for any CVA. She was evaluated by Neurology, Dr. Laureano, and recommendations were made to continue her current medications and to also start a baby aspirin daily
--- NOTE | 2022-01-29 07:12 | PM.DS ---
DS: Admitting Diagnosis Discharge Date 01/29/2022 Admitting Diagnosis Facial numbness, blurry vision, seizures, hypertension, hyperlipidemia, thyroid disorder DS: Discharge Diagnosis Discharge Diagnosis (1) Facial numbness: Code(s): R20.0 - Anesthesia of skin Status: Acute Assessment and Plan: Now resolved etiology unknown labs unremarkable consult Neurology 01/29/22: Will discharge today. 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 Unable to perform CTA and MRI with contrast secondary to patient's contrast allergy. ECHO resulted with normal LVSF with EF of 65-70%, normal diastolic function, and normal right ventricular function as well. (2) Blurry vision, right eye: Code(s): H53.8 - Other visual disturbances Status: Acute Assessment and Plan: blurriness has resolved, however patient now has pain In the eye. Question ocular migraine?? 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 ECHO ordered 01/29/22: See plan #1 (3) Seizures: Code(s): R56.9 - Unspecified convulsions Status: Acute Assessment and Plan: continue Keppra and lamotrigine patient follows with Neurology at [place] has been seizure-free since 2009 patient's symptoms were not of her typical aura (4) Hypertension: Code(s): I10 - Essential (primary) hypertension Status: Acute Assessment and Plan: Blood pressures have been Continue home medications. (5) Hyperlipidemia: Code(s): E78.5 - Hyperlipidemia, unspecified Status: Acute Assessment and Plan: Continue statin therapy (6) Thyroid disorder: Code(s): E07.9 - Disorder of thyroid, unspecified Status: Acute Assessment and Plan: continue levothyroxine Plan plan to discharge after ECHO and neurology evaluation and recommendations. DS: Summary Hospital Course Reason for hospitalization: Blurry Vision Hospital Course: This pleasant 61 year old female patient with significant PMH of seizure disorder, controlled well with last seizure in 2009, followed by Neurology at [facility], HTN, HLD, and hypothyroidism presented to the ER on 01/27/22 with complaints of having blurry vision in her right eye in the upper hemisphere field of vision only that had resolved, but she sought out exam by Opthalmology anyway and there were no acute findings. After seeing her forest fire prevention specialist, she began having numbness/tingling in her face on both sides. It lasted well after the time she presented to the hospital. She never had any change in her speech and she never had any change in her gait. In the ER CT of the brain was performed and it was negative for any acute findings. Pt. was admitted for further workup and after admission, her tingling her symptoms further resolved. She had a negative MRI without contrast, and normal Carotid dopplers in addition to a normal ECHO with 65-70% EF and no cardioembolic source for any CVA. She was evaluated by Neurology, Dr. Laureano, and recommendations were made to continue her current medications and to also start a baby aspirin daily as we have to assume that she may have had a TIA based upon her symptoms. Pt. is stable for discharge at this time. She will be instructed to follow up with her Neurologist at [place] that she usually sees. Status at Discharge Functional status at discharge: independent ambulation Overall status at discharge: patient is back to baseline Time Spent with Patient Time attestation: T
[2022-01-29 08:00] VITALS: PULSE 84; RESP 18; O2SAT 99
[2022-01-29] MEDS: lisinopriL 10 MG TABLET PO (08:34)
[2022-01-29] MEDS: MONTELUKAST SODIUM 10 MG TABLET PO (08:34)
[2022-01-29] MEDS: MULTIVITAMINS THERAPEUTIC TAB (*BKC) 1 TABLET PO (08:34)
[2022-01-29] MEDS: CHOLECALCIFEROL 1,000 UNITS TABLET 1000 UNITS PO (08:34)
[2022-01-29] MEDS: LORATADINE 10 MG TABLET PO (08:35)
[2022-01-29] MEDS: VITAMIN B COMPLEX CAPSULE 1 CAP PO (08:35)
[2022-01-29] MEDS: METOPROLOL SUCCINATE EXT REL 25 MG TABCR PO (08:35)
[2022-01-29] MEDS: levETIRAcetam 500 MG TABLET PO (08:35)
[2022-01-29] MEDS: amLODIPine BESYLATE 2.5 MG TABLET BY MOUTH (08:35)
[2022-01-29] MEDS: guaiFENesin 12 HR 600 MG TABCR PO (08:35)
[2022-01-29] MEDS: lamoTRIgine 100 MG TABLET 200 MG PO (08:35)
[2022-01-29] MEDS: FAMOTIDINE 20 MG TABLET PO (08:35)
[2022-01-29] MEDS: SIMVASTATIN 20 MG TABLET 40 MG PO (08:35)
== END 2022-01-29 10:44 | disposition home or self-care (01) ==
LOC: ANHED 21:22 → ANH2MED 21:44
PROVIDERS: Emergency Medicine; Admitting Provider Internal Medicine; Emergency Provider Emergency Medicine; PCP Internal Medicine; Visit Provider Nurse Practitioner Adult Health
DX: R20.0 Anesthesia of skin (principal); H53.8 Other visual disturbances; I10 Essential (primary) hypertension; E78.5 Hyperlipidemia, unspecified; G40.909 Epilepsy, unspecified, not intractable, without status epilepticus; K21.9 Gastro-esophageal reflux disease without esophagitis; E89.0 Postprocedural hypothyroidism; I65.23 Occlusion and stenosis of bilateral carotid arteries; Z20.822 Contact with and (suspected) exposure to COVID-19; Z79.899 Other long term (current) drug therapy
CPT/HCPCS: 36415; 70450; 70551; 71046; 80053; 80061; 82948; 83036; 83690; 83735; 84443; 84484; 85025; 85610; 85652; 85730; 93005; 93306; 93880; 99285; A9270; C9803; G0378; U0003; U0005

== ENCOUNTER → 2022-07-01 11:32 | Outpatient (CLI) | payer BC, SELFPAY ==
--- NOTE | ~2022-07-01 | MM_ITS ---
EXAMINATION: MM screening jaswant BI w carmela HISTORY: Screening mammogram TECHNIQUE: Craniocaudal and mediolateral oblique 3-D tomosynthesis images were obtained and synthetic 2-D images were generated. CAD analysis was submitted and interpreted. COMPARISON: June 17, 2021, May 05, 2020, April 23, 2019 bilateral screening mammogram exa minations BREAST PARENCHYMAL COMPOSITION: The breasts are extremely dense, which lowers the sensitivity of mamm ography. FINDINGS: There is no evidence of suspicious mass, calcification, or architectural distortion to sugg est malignancy in either breast. There has been no suspicious interval change. IMPRESSION: 1. No mammographic evidence of malignancy. 2. Recommend routine screening mammography in one year. BI-RADS Category 1: Negative Reviewed, dictated and finalized at location A. AGE COOKER
== END ==
PROVIDERS: PCP Internal Medicine
DX: Z12.31 Encounter for screening mammogram for malignant neoplasm of breast (principal)
CPT/HCPCS: 77063; 77067

== ENCOUNTER 2022-08-31 15:21 | Emergency (ER) | payer BC, SELFPAY ==
--- NOTE | ~2022-08-31 | XR_ITS ---
EXAM: [id number] DATE: 08/31/2022 16:02 HISTORY: fall, PAIN BELOW PATELLA, LIMITED ROM . COMPARISON: None available. FINDINGS: Decreased mineralization. Nondisplaced fracture of the inferior pole of the patella. No ly tic or blastic lesion. Joint spaces and physes are maintained. No erosion or periosteal change. Mild anterior soft tissue swelling. Small joint effusion. IMPRESSION: Nondisplaced inferior pole patellar fracture. Reviewed, dictated and finalized at location K.
[2022-08-31 15:33] VITALS: BP 118/88; PULSE 78; RESP 16; TEMP 37.1; O2SAT 99
--- NOTE | 2022-08-31 15:44 | ED.FALL ---
HPI - Fall General Chief Complaint: Fall Stated Complaint: fall, left knee pain Time Seen by Provider: 08/31/22 15:34 History of Present Illness HPI Narrative: 61-year-old female presents to the emergency room for evaluation of left knee pain. Patient states that she stepped into her garage and missed stepped landing on her left knee and right hand. Patient states that she was able to stand up and walk after the injury. Denies any other injuries. Related Data Home Medications Medication Instructions Recorded Confirmed amlodipine 2.5 mg-benazepril 10 mg 1 cap PO DAILY 04/16/21 07/19/22 capsule azelastine 205.5 mcg (0.15 %) 1 spray intranasal QHS PRN Nasal 04/16/21 07/19/22 nasal spray Congestion cholecalciferol (vitamin D3) 25 25 mcg PO DAILY 04/16/21 07/19/22 mcg (1,000 unit) capsule famotidine 10 mg tablet 20 mg PO DAILY 04/16/21 07/19/22 fexofenadine 180 mg tablet 180 mg PO DAILY 04/16/21 07/19/22 (Amy Allergy) guaifenesin 600 mg tablet, 600 mg PO DAILY 04/16/21 07/19/22 extended release 12 hr (Mucinex) lamotrigine 200 mg tablet 200 mg PO BID 04/16/21 07/19/22 levetiracetam 500 mg tablet 500 mg PO Q12H 04/16/21 07/19/22 (Keppra) levothyroxine 100 mcg tablet 100 mcg PO DAILY 04/16/21 07/19/22 (Synthroid) metoprolol tartrate 25 mg tablet 25 mg PO DAILY 04/16/21 07/19/22 metronidazole 0.75 % topical cream 1 applic topical DAILY PRN Rosacia 04/16/21 07/19/22 montelukast 10 mg tablet 10 mg PO DAILY 04/16/21 07/19/22 multivitamin (Daily Multi-Vitamin 1 tablet PO DAILY 04/16/21 07/19/22 tablet) vitamin B complex (B 1 tablet PO DAILY 04/16/21 07/19/22 Complex-Vitamin B12 tablet) simvastatin 40 mg tablet 40 mg PO DAILY 06/17/21 07/19/22 Allergies Allergy/AdvReac Type Severity Reaction Status Date / Time ciprofloxacin [From Cipro] Allergy Intermediate Unknown Verified 08/31/22 15:45 latex Allergy Mild RASH ON Verified 08/31/22 15:45 CONTACT cefuroxime Allergy Unknown Unknown Verified 08/31/22 15:45 Contrast Media Allergy Severe HEAD AND Uncoded 08/31/22 15:45 EARS SWELL/RASH Review of Systems Review of Systems: CONSTITUTIONAL: Denies fever, chills, or sweats. EYES: Denies visual changes, redness, or discharge. ENT: Denies rhinorrhea, congestion, sore throat, or otalgia. CARDIOVASCULAR: Denies chest pain, palpitations, or edema. RESPIRATORY: Denies cough or dyspnea. GASTROINTESTINAL: Denies abdominal pain, nausea, vomiting, or diarrhea. GENITOURINARY: Denies dysuria or hematuria. SKIN: Denies rash or itching. MUSCULOSKELETAL: Left knee pain per HPI NEUROLOGIC: Denies headache, numbness, dizziness, or weakness. PSYCHIATRIC: Denies anxiety or depression. [facility] Past Medical History Medical History Acid reflux Hyperlipidemia Hypertension Ovarian cyst Post-menopausal Seasonal allergies Seizures Thyroid disorder Surgical History Surgical History H/O partial thyroidectomy [place] teeth removed Family History Family History Sibling Hypertension Malignant neoplasm of prostate Mother Patient's mother is Father Patient's father is Social History Social History Smoking status: Never smoker Alcohol intake: never Substance use: never Living arrangements: with family Spiritual care concerns: No Exam Narrative: GENERAL: Well-appearing, well-nourished, no physical limitations, and in no acute distress. HEAD: Normocephalic, atraumatic. EYES: Conjunctivae normal, PERRLA and EOMI. ENT: External nose normal, Nares clear, no rhinorrhea or epistaxis. Mucous membranes moist. Oropharynx without tonsillar hypertrophy exudate or other lesions. External ears normal, bilateral TMs normal bilaterally NECK: [place]
[2022-08-31] MEDS: NAPROXEN 500 MG TABLET PO (16:11)
== END 2022-08-31 16:54 | disposition home or self-care (01) ==
PROVIDERS: Emergency Provider Nurse Practitioner Family; PCP Internal Medicine
DX: S82.092A Other fracture of left patella, initial encounter for closed fracture (principal); E78.5 Hyperlipidemia, unspecified; I10 Essential (primary) hypertension; K21.9 Gastro-esophageal reflux disease without esophagitis; E89.0 Postprocedural hypothyroidism; W10.9XXA Fall (on) (from) unspecified stairs and steps, initial encounter
CPT/HCPCS: 73560; 99284; A9270

== ENCOUNTER 2022-12-05 08:59 | Outpatient (CLI) | payer BC, SELFPAY ==
--- NOTE | ~2022-12-05 | US_ITS ---
EXAMINATION: US VENOUS LOWER EXT NESTOR DATE: 12/05/2022 10:33 INDICATION: Varicose veins of the left lower limb with left lower limb swelling TECHNIQUE: Grayscale images without and with compression and Doppler images of the bilateral lower ex tremity veins were obtained. COMPARISON: None. FINDINGS: Right lower extremity: The right common femoral vein, profunda (deep) femoral vein, femoral vein, popliteal vein, peroneal t runk, posterior tibial veins and greater saphenous vein are patent. common femoral vein: no reflux femoral vein: no reflux popliteal vein: no reflux profunda femoral vein: no reflux Greater saphenous Origin: 6.8 mm no reflux Mid thigh: 2.3 mm no reflux Zzhxg-lrg-suhu: 1.9 mm no reflux Npcqf-[id number]-bvsq: 1.4 mm 1.5 seconds Mid calf: 1.6 mm 1.5 seconds Ankle: 2.0 mm no reflux Lesser saphenous Proximal: 5.9 mm no reflux Mid: 2.5 mm no reflux Distal: 1.4 mm no reflux Left lower extremity: The left common femoral vein, profunda femoral vein, femoral vein, popliteal vein, peroneal trunk, po sterior tibial veins and greater saphenous vein are patent. common femoral vein: [no reflux femoral vein: no reflux popliteal vein: no reflux profunda femoral vein: no reflux Greater saphenous Origin: 5.4 mm no reflux Mid thigh: 2.7 mm no reflux Jutii-whl-tqux: 2.7 mm no reflux Okgte-hge-mjss: 1.7 mm no reflux Mid calf: 1.4 mm no reflux Ankle: 1.6 mm no reflux Lesser saphenous Proximal: 4.5 mm no reflux Mid: 3.6 mm no reflux Distal: 1.6 mm no reflux IMPRESSION: 1. Patent bilateral lower extremity veins. No evidence of deep venous thrombosis. 2. No significant reflux in either lower extremity. Reviewed, dictated and finalized at location B. IMPRESSION: 1. Patent bilateral lower extremity veins. No evidence of deep venous thrombos is. 2. No significant reflux in either lower extremity.
== END 2022-12-05 09:00 | disposition home or self-care (01) ==
PROVIDERS: PCP Internal Medicine; Visit Provider Nurse Practitioner Adult Health
DX: I83.892 Varicose veins of left lower extremity with other complications (principal)
CPT/HCPCS: 93970

== ENCOUNTER 2023-09-29 13:12 | Emergency (ER) | payer BC, SELFPAY ==
[2023-09-29 13:25] VITALS: BP 142/81; PULSE 71; RESP 16; TEMP 36.6; O2SAT 100
--- NOTE | 2023-09-29 13:35 | ED.URI ---
HPI - URI/Sore Throat General Chief Complaint: Upper Respiratory Infection Stated Complaint: Cough and Wheezing Time Seen by Provider: 09/29/23 13:35 Source: patient Mode of arrival: ambulatory Limitations: no limitations History of Present Illness HPI Narrative: 62-year-old female presents with coughing, chest congestion for 1 week. Saw her primary care physician last week when cough for started and was prescribed azithromycin. Called primary care physician back after finishing is a firm ice and and still coughing and did a chest x-ray outpatient 2 days ago. Chest x-ray was normal. Primary care physician called patient and stated illness needed to run its course. Patient taking Mucinex DM at home without relief of coughing. Reports intermittent wheezing. Has albuterol inhaler that she is using once a day. Afebrile. All systems reviewed and negative except as noted above. Related Data Home Medications Medication Instructions Recorded Confirmed amlodipine 2.5 mg-benazepril 10 mg 1 cap PO DAILY 04/16/21 09/29/23 capsule azelastine 205.5 mcg (0.15 %) 1 spray intranasal QHS PRN Nasal 04/16/21 09/29/23 nasal spray Congestion cholecalciferol (vitamin D3) 25 25 mcg PO DAILY 04/16/21 09/29/23 mcg (1,000 unit) capsule famotidine 10 mg tablet 20 mg PO DAILY 04/16/21 09/29/23 fexofenadine 180 mg tablet 180 mg PO DAILY 04/16/21 09/29/23 (Amy Allergy) guaifenesin 600 mg tablet, 600 mg PO DAILY 04/16/21 09/29/23 extended release 12 hr (Mucinex) lamotrigine 200 mg tablet 200 mg PO BID 04/16/21 09/29/23 levetiracetam 500 mg tablet 500 mg PO Q12H 04/16/21 09/29/23 (Keppra) levothyroxine 100 mcg tablet 100 mcg PO DAILY 04/16/21 09/29/23 (Synthroid) metoprolol tartrate 25 mg tablet 25 mg PO DAILY 04/16/21 09/29/23 metronidazole 0.75 % topical cream 1 applic topical DAILY PRN Rosacia 04/16/21 09/29/23 montelukast 10 mg tablet 10 mg PO DAILY 04/16/21 09/29/23 multivitamin (Daily Multi-Vitamin 1 tablet PO DAILY 04/16/21 09/29/23 tablet) vitamin B complex (B 1 tablet PO DAILY 04/16/21 09/29/23 Complex-Vitamin B12 tablet) simvastatin 40 mg tablet 40 mg PO DAILY 06/17/21 09/29/23 itraconazole 100 mg capsule 200 mg PO DAILY 09/29/23 09/29/23 Allergies Allergy/AdvReac Type Severity Reaction Status Date / Time ciprofloxacin [From Cipro] Allergy Intermediate Unknown Verified 09/29/23 13:21 latex Allergy Mild RASH ON Verified 09/29/23 13:21 CONTACT cefuroxime Allergy Unknown Unknown Verified 09/29/23 13:21 Contrast Media Allergy Severe HEAD AND Uncoded 09/29/23 13:21 EARS SWELL/RASH Review of Systems Review of Systems: CONSTITUTIONAL: Denies fever, chills, or sweats. EYES: Denies visual changes, redness, or discharge. ENT: Denies rhinorrhea, congestion, sore throat, or otalgia. CARDIOVASCULAR: Denies chest pain, palpitations, or edema. RESPIRATORY: Reports cough, chest congestion, wheezing. Denies dyspnea. GASTROINTESTINAL: Denies abdominal pain, nausea, vomiting, or diarrhea. GENITOURINARY: Denies dysuria or hematuria. SKIN: Denies rash or itching. MUSCULOSKELETAL: Denies back pain, joint pain, or myalgia. NEUROLOGIC: Denies headache, numbness, or weakness. PSYCHIATRIC: Denies anxiety or depression. All other systems reviewed are negative, except as documented in HPI. [facility] Past Medical History Medical History Acid reflux Hyperlipidemia Hypertension Ovarian cyst Post-menopausal Seasonal allergies Seizures Thyroid disorder Surgical History Surgical History H/O partial thyroidectomy [place] teeth removed Family History Family History Sibling Hypertension Malignant neoplasm of prostate Mother Patient's mother is Father Patient's father is Social History Social History
== END 2023-09-29 13:48 | disposition home or self-care (01) ==
PROVIDERS: Emergency Provider Nurse Practitioner Family; PCP Internal Medicine
DX: J20.9 Acute bronchitis, unspecified (principal); K21.9 Gastro-esophageal reflux disease without esophagitis; E78.5 Hyperlipidemia, unspecified; I10 Essential (primary) hypertension; G40.909 Epilepsy, unspecified, not intractable, without status epilepticus; Z90.89 Acquired absence of other organs
CPT/HCPCS: 99213; G0463

== ENCOUNTER 2023-11-29 11:26 | Outpatient (CLI) | payer BC, SELFPAY ==
--- NOTE | ~2023-11-29 | MM_ITS ---
EXAMINATION: MM screening jaswant BI w carmela HISTORY: Screening TECHNIQUE: Craniocaudal and mediolateral oblique 3-D tomosynthesis images were obtained and synthetic 2-D images were generated. CAD analysis was submitted and interpreted. COMPARISON: Comparison to multiple prior studies sequentially, with oldest reviewed study dated 11/28. BREAST PARENCHYMAL COMPOSITION: Dense: The breasts are extremely dense, which lowers the sensitivity of mammography. FINDINGS: There is no evidence of suspicious mass, calcification, or architectural distortion to sugg est malignancy in either breast. There has been no suspicious interval change. IMPRESSION: 1. No mammographic evidence of malignancy. 2. Recommend routine screening mammography in one year. BI-RADS Category 1: Negative Reviewed, dictated and finalized at location B.
== END 2023-11-29 11:27 ==
PROVIDERS: PCP Internal Medicine
DX: Z12.31 Encounter for screening mammogram for malignant neoplasm of breast (principal)
CPT/HCPCS: 77063; 77067

== ENCOUNTER 2024-07-17 10:52 | Outpatient (CLI) | payer BC, SELFPAY ==
[2024-07-17 12:10] LABS: Thyroid Stimulating Hormone 0.927 uIU/mL (0.465-4.680)
[2024-07-17 12:16] LABS: Free T3 3.36 pg/mL (2.45-5.93)
--- OUTSIDE RECORDS SUMMARY | 2024-07-17 12:35 | XMS_ITS | Patient Health Summary ---
Author Organization [facility] Address [address] [place] [address] Care Team Providers Care Environmental Protection Forester Name Role Phone Unavailable Primary Care Provider Unavailabl e Note from [facility],non-owned Affiliates and Associated Physician Practices is amultiple site organization consisting of ambulatory clinics and hospital sitesin [place], [place], [place] and [place]. This disclosure is being madepursuant to the Care Everywhere program and may not contain all information available regarding this patient. Last updated 18.[facility] Social History Tobacco Use Types Packs/Day Years Used Date Smoking Tobacco: Never Assessed Sex and Gender Information Value Date Recorded Sex Assigned at Not on file Gender Identity Not on file Sexual Orientation Not on file Procedures * DERMATOPATHOLOGY(Performed 06/23/2021) Results * DERMATOPATHOLOGY (06/23/2021 12:00 AM [facility]) Case Report Dermatopathology Report Case: [id number] Authorizing Provider: Jesus Hurst Jr., MD Collected: 06/23/2021 12:00 AM Ordering Location: [facility] DermPath Lab Received: 06/24/2021 11:46 AM Pathologist: Doyle Patricio MD Specimen: Skin, right chin 2 4:31 PM [facility] DERMATOPATHOLOGY LABORATORY Final Diagnosis Specimen A. SKIN, right chin: BASAL CELL CARCINOMA, NODULAR TYPE (C44.319) 2 4:31 PM [facility] DERMATOPATHOLOGY LABORATORY Clinical History Basal cell carcinoma. 2 4:31 PM [facility] DERMATOPATHOLOGY LABORATORY Gross Description Specimen A: Received is one formalin filled container labeled with the patient's name and designated right chin. The specimen consists of a shave biopsy measuring 4x4x1 mm. Jar 0. 2 4:31 PM [facility] DERMATOPATHOLOGY LABORATORY Microscopic Description Specimen A. SKIN, right chin: Within the dermis there are aggregates of basaloid cells with a high nuclear to cytoplasmic ratio and peripheral palisading. 2 4:31 PM [facility] DERMATOPATHOLOGY LABORATORY Disclaimer An external and internal positive and negative controls are appropriate for the histochemical, immunohistochemical and immunofluorescence stain(s) in this case (if any), except where stated explicitly. The performance characteristics of the stain(s) cited in this report were developed and its performance characteristic determined by the Dermatopathology Laboratory at [facility], directed by Dr. Preston Patricio. These tests need not be, and therefore are not, approved by the [place] Food and Drug Administration. The tests are used for clinical purposes. Billing Codes Specimen Charges Stain Charges 24258 1 2 4:31 PM [facility] DERMATOPATHOLOGY LABORATORY Embedded Images 2 4:31 PM [facility] DERMATOPATHOLOGY LABORATORY Pathology/Cytolog y TISSUE SPECIMEN FROM SKIN / Unknown 06/23/2021 06/24/2021 11:46 AM APPLICATION TECHNICAL DESIGNER Jesus Hurst Jr., MD LAB - PATHOLOGY /CYTOLOGY ORDERABLES DERMATOPATHOLOGY LABORATORY [facility] - Department of Dermatology [facility] Medicine [address] [place] [address], [address] [phone]
--- OUTSIDE RECORDS SUMMARY | 2024-07-17 12:35 | XMS_ITS | Encounter Summary ---
Author Organization [facility] Address [address] [place] [address] Care Team Providers Care Drying Machine Operator Name Role Phone Unavailable Primary Care Provider Unavailabl e Encounter Details Date Type Department Care Team (Late st Contact Info) Description 06/24/2021 Lab Requisition [facility] DermPath Lab [address] [place] [id number] Jesus Hurst Jr., MD [address] [place] [address] Social History Tobacco Use Types Packs/Day Years Used Date Smoking Tobacco: Never Assessed Sex and Gender Information Value Date Recorded Sex Assigned at Not on file Gender Identity Not on file Sexual Orientation Not on file documented as of this encounter Plan of Treatment Not on file documented as of this encounter Procedures Procedure Name Priority Date/Time Associated Diagnosis Comments DERMATOPATHOLOGY Routine 06/23/2021 12:0 0 AM HIDE INSPECTOR documented in this encounter Results * DERMATOPATHOLOGY (06/23/2021 12:00 AM HIDE INSPECTOR) Case Report Dermatopathology Report Case: [id number] Authorizing Provider: Jesus Hurst Jr., MD Collected: 06/23/2021 12:00 AM Ordering Location: [facility] DermPath Lab Received: 06/24/2021 11:46 AM Pathologist: Doyle Patricio MD Specimen: Skin, right chin 2 4:31 PM HIDE INSPECTOR DERMATOPATHOLOGY LABORATORY Final Diagnosis Specimen A. SKIN, right chin: BASAL CELL CARCINOMA, NODULAR TYPE (C44.319) 2 4:31 PM HIDE INSPECTOR DERMATOPATHOLOGY LABORATORY Clinical History Basal cell carcinoma. 2 4:31 PM [facility] DERMATOPATHOLOGY LABORATORY Gross Description Specimen A: Received is one formalin filled container labeled with the patient's name and designated right chin. The specimen consists of a shave biopsy measuring 4x4x1 mm. Jar 0. 2 4:31 PM [facility] DERMATOPATHOLOGY LABORATORY Microscopic Description Specimen A. SKIN, right chin: Within the dermis there are aggregates of basaloid cells with a high nuclear to cytoplasmic ratio and peripheral palisading. 2 4:31 PM [facility] DERMATOPATHOLOGY LABORATORY Disclaimer An external and internal positive and negative controls are appropriate for the histochemical, immunohistochemical and immunofluorescence stain(s) in this case (if any), except where stated explicitly. The performance characteristics of the stain(s) cited in this report were developed and its performance characteristic determined by the Dermatopathology Laboratory at [facility], directed by Dr. Preston Patricio. These tests need not be, and therefore are not, approved by the [place] Food and Drug Administration. The tests are used for clinical purposes. Billing Codes Specimen Charges Stain Charges 77378 1 2 4:31 PM [facility] DERMATOPATHOLOGY LABORATORY Embedded Images 2 4:31 PM [facility] DERMATOPATHOLOGY LABORATORY Pathology/Cytolog y TISSUE SPECIMEN FROM SKIN / Unknown 06/23/2021 06/24/2021 11:46 AM HIDE INSPECTOR Jesus Hurst Jr., MD LAB - PATHOLOGY /CYTOLOGY ORDERABLES DERMATOPATHOLOGY LABORATORY [facility] - Department of Dermatology [address], [address] [phone] documented in this encounter Visit Diagnoses Not on filedocumented in this encounter
--- OUTSIDE RECORDS SUMMARY | 2024-07-17 12:35 | XMS_ITS | Data Portability ---
Author Organization [facility] Address [address] [place] [address] Assessment Encounter Date Assessment Date Assessment LastModified by Organization Details LastModified Time 03/16/2020 03/16/2020 Annual gynecological exam performed. Patient will come back in a year unless there are new symptoms. Not available 03/16/2020 10:20:19 Plan of Treatment Reminders Order Date Submit Date Provider Last Modified By Organization Details Last Modified Time Details Appointments None recorded. Lab None recorded. Referral None recorded. Procedures None recorded. Surgeries None recorded. Imaging None recorded. Medication Orders estradiol 0.01% (0.1 mg/gram) vaginal cream 2019 020 INTERFACE [id number], [address] [place], [address], 0 10:55:05 Patient TargetsNo targets recorded. Patient InstructionsNo instructions recorded. Reason for Referral None Reported. Results Created Date Observation Date Name Description Value Unit Range Abnormal Flag Note LastModifiedBy Organization Detail LastModifiedTime 03/16/2003/19/2020 pap, LB Pap test thin prep Negati ve for Intrae pithel ial Lesion or Malign gordo normal ACCES NHUNG #: 20-PS [id number] 10 Sourc e: Cervi isabel/E ndoce rvica l LMP: 09/24 Date Taken : 03/16 Speci men Type: ThinP rep Vial Date Repor nicola: 03/19 Clini isabel Data: Cytot ech: Sammy Contreras r,CT( ASCP) Date Repor nicola: 03/18 Revie wed By: Teri A. Snodd y, CT( CP) Speci men Adequ acy: Satis facto ry for evalu ation No endoc ervic al/tr ansfo rmati on zone compo nent prese nt Gener al Categ oriza tion: NEGAT DOUGLAS FOR INTRA EPITH ELIAL PHYLLIS N OR MALIG INGE This speci men has been ana rosa zed by the ThinP rep Imagi ng Syste m, an inter activ e compu ter syste m which jorge ts the lab in the devone bao of ThinP rep Pap Test slide s. Follo wing imagi ng, the slide was revie wed by a Cytot echno logis t and/o r Patho logis t. D N A A S S A Y S R E P O R T TEST NAME RESUL TS ----- ---- ----- -- HPV High Risk Marcell castanon (TMA) ThinP rep Vial The human papil lomav irus (HPV) High Risk Marcell castanon is an FDA-a pprov ed in-vi tro ampli fied nucle ic acid test for the quali tativ e detec tion of E6/E7 viral mRNA. Resul ts shoul d be corre lated with patie nt prese ntati on, histo ry, cervi isabel cytol ogy and other clini isabel and labor atory findi ngs. See https ://eMindful/s ites/ defau lt/fi les/2 018-0 3/AW- 09160 _002_ 01.pd f for furth er infor matbrenda n. Test perfo rmed by [facility], d/b/a Lisa evans, [address], [place] [address] , Jenna Gonsalez ra, DO, Labor atory Direc tor. HPV High Risk *HPV NOT DETEC NICOLA (TYPE S 16, 18, 31, 33, 35, 39, 45, 51, 52, 56, 58, 59, 66, 68) *HPV: The human papil lomav irus (HPV) High Risk Marcell castanon is an FDA-a pprov ed in-vi tro ampli fied nucle ic acid test for the quali tativ e detec tion of E6/E7 viral mRNA. [facility] shoul d be corre lated with patie nt prese ntati on, histo ry, cervi isabel cytol ogy and other clini isabel and labor atory findi ngs. See https ://Enviance wPropertyBridge/s barbaraes/ josefina lt/fi les/2 018-0 3/AW- 71539 _002_ 01.pd f for furth er infor juan n. Test [facility]fo rmed by [facility], d/b/a [facility], [address], [place] [address] , Jenna Gonsalez ra, DO, Labor atory Direc tor. End of t Techn ical servi enedina provi ded by [facility], d/b/a [facility], [address] [place] [address] Jeff Villalobos MD, [facility] Dire tor. Case revie wed and diagn osis rende red at [facility], d/b/a [facility], [address] [place] [address] Jeff Villalobos MD, [facility] [employer] Dire tor. CONFI DENTI AL Not Available [facility] ([facility]) [address], [place], [address], 03/19/2020 09:36:09 03/16/20 20 03/18/2020 HPV DNA, high- risk HPV high risk NOT DETECT ED normal Not Available [facility] ([facility]) [address], [place], [address], 03/19/2020 09:36:10 05/05/20 20 05/05/2020 MAMMO , scree bao, bilat eral No observ ation record ed. [facility] [address], [place], [address], 05/11/2020 20:15:52 Result Notes None recorded. Problems Name Problem SNOMED Code Status Onset Date Resolution Date Notes Provider Name and Address Organization Details Recorded Time Specializ ed medical examinati on Active 2014 Gynecolog ical Examinati on;Record ed Elsewhere : No Locati on: [facility] So urce: EHR Chron ic: N Practic e ID: 0001 Bill able Time: 08:30:00 AM Not Available [facility] 0 21:46:26 Leukocyto sis 312404227 Active 2014 LEUKOCYTO SIS NOS;Recor ded Elsewhere : No Locati on: [facility] So urce: EHR Chron ic: N Practic e ID: 0001 Bill able Time: 08:30:00 AM Not Available [facility] 0 21:46:26 Microscop ic hematuria 911809998 Active 2013 HEMATURIA MICROSCOP IC;Practi ce ID: 0001 Not Available [facility] 0 21:46:26 Screening for malignant neoplasm of rectum Active 2013 Screening for malignant neoplasms of the rectum;Pr actice ID: 0001 Not Available [facility] 0 21:46:26 Adult health examinati on Active 2014 Routine general medical examinati on at a health care facility; Practice ID: 0001 Not Available [facility] 0 21:46:27 Screening for malignant neoplasm of cervix Active 2014 SCREEN MAL NEOP-CERV IX;Practi ce ID: 0001 Not Available [facility] 0 21:46:27 Carbuncle 470298631 Active 2014 Carbuncle , unspecifi ed;Practi ce ID: 0001 Not Available [facility] 0 21:46:27 Evaluatio n finding Active 2015 Hematuria , unspecifi ed;Practi ce ID: 0001 Not Available [facility] 0 21:46:[address] Concept Active 2015 Encntr for acute dialysis nurse exam (general) (routine) w/o abn findings; Practice ID: 0001 Not Available [facility] 0 21:46:27 Acute vaginitis 00711151 Active 2015 Acute vaginitis ;Practice ID: 0001 Not Available [facility] 0 21:46:27 Pelvic and perineal pain 440173924 Active 2015 Pelvic and perineal pain;Prac ashley ID: 0001 Not Available [facility] 0 21:46:27 Benign essential microscop ic hematuria 43970604937 9109 Active 2015 Benign essential microscop ic hematuria ;Practice ID: 0001 Not Available [facility] 0 21:46:27 Imaging of abdomen abnormal 722568654 Active 2015 Abn findings on dx imaging of abd regions, inc retroperi ton;Pract ice ID: 0001 Not Available [facility] 0 21:46:28 Polyp of corpus uteri 68872119 Active 2016 Polyp of corpus uteri;Pra ctice ID: 0001 Not Available [facility] 0 21:46:28 Polyp of cervix 47290840 Active 2016 Polyp of cervix uteri;Pra ctice ID: 0001 Not Available [facility] 0 21:46:28 Urinary tract infectiou s disease 57818353 Active 2016 Urinary tract infection , site not specified ;Practice ID: 0001 Not Available [facility] 0 21:46:[address] Concept Active 2016 Encounter for general adult medical exam w abnormal findings; Practice ID: 0001 Not Available [facility] 0 21:46:29 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 Oth noninflam matory disorders of vulva and perineum; Practice ID: 0001 Not Available [facility] 0 21:46:30 Atrophic vaginitis 69635933 Active 2018 Postmenop ausal atrophic vaginitis ;Practice ID: 0001 Not Available [facility] 0 21:46:[address] Concept Active 2018 Encntr for general adult medical exam w/o abnormal findings; Practice ID: 0001 Not Available [facility] 0 21:46:31 Vaginolab ial hernia Active 2017 Other specified noninflam matory disorders of vagina;Re corded Elsewhere : No Locati on: [facility] So urce: EHR Chron ic: N Practic e ID: 0001 Bill able Time: 02:45:00 PM Not Available [facility] 0 21:46:32 Cyst of ovary Active 2015 Unspecifi ed ovarian cyst, unspecifi ed side;Cameron rded Elsewhere : No Locati on: [facility] So urce: EHR Chron ic: N Practic e ID: 0001 Bill able Time: 10:48:34 AM Not Available [facility] 0 21:46:33 Problem Notes None recorded. Procedures Surgical History Date Name Laterality Status Provider Name and Address Organization Details Recorded Time Colonoscopy completed [place] [facility] 03/16/2020 10:25:26 Hysteroscopy completed [facility] 03/16/2020 10:25:33 cervical polypectomy completed [facility] 03/16/2020 10:26:00 thyroidectomy completed [facility] 03/16/2020 10:27:11 Imaging Results Imaging Date Name Status LastModified by Organiz ation Details LastModified Time 05/05/2020 MAMMO, screening, bilateral completed [facility] [address], [place], [address], 05/11/2020 20:15:52 Procedure Notes None recorded. Medical Equipment None Reported. Allergies Allergen ID Allergen Name Allergen Category Reaction Reaction Severity Criticality Documentation Date Start Date Code Code System Note Provider Name and Address Organization Details Recorded Time 2642 cefuroxim e Not available Not available Not available Not available 03/16/2020 2194 RxNorm Disha carlos [facility] 0 10:20:59 2643 ciproflox acin medicatio n Not available Not available Not available 03/16/2020 2551 RxNorm Disha carlos [facility] 0 10:21:06 2644 Iodinated contrast media (substanc e) medicatio n Not available Not available Not available 03/16/2020 06833 2004 SNOMED Disha carlos, [facility] 0 10:21:15 2645 latex environme nt,medica tion Not available Not available Not available 03/16/2020 62573 91 RxNorm Disha carlos, [facility] 0 10:21:19 2646 Product containin g penicilli n (product) medicatio n Not available Not available Not available 03/16/2020 94467 8001 SNOMED Disha carlos, [facility] 0 10:21:25 Medications Name Sig Start Date Stop Date Status Note LastModified by Organization Details LastModified Time Keppra 500 mg tablet take 1 tablet by oral route 2 times every day active Prescrib ed Elsewher e: Yes Loca tion: [facility] odify By: munira bergeronuntmilan DateTime : 01/24/20 14 08:30:00 AM Not Available Not Available Not Available azithromy kurt 250 mg tablet take 2 tablet by oral route every day for 1 day then 1 tablet (250 mg) by oral route once daily for 4 days active Not Available Not Available No t Available metoprolo l succinate ER 50 mg tablet,ex tended release 24 hr take 1 tablet by oral route every day active Prescrib ed Elsewher e: Yes Loca tion: [facility] odify By: [email or web address] Encount er DateTime : 03/11/20 19 08:45:00 AM Not Available Not Available Not Available Tegretol XR 200 mg tablet,ex tended release active Not Available Not Available Not Available Synthroid 100 mcg tablet take 1 tablet by oral route every day active Prescrib ed Elsewher e: Yes Loca tion: [facility] odify By: munira bergeronuntmilan DateTime : 01/24/20 14 08:30:00 AM Not Available Not Available Not Available amlodipin e 2.5 mg-benaze pril 10 mg capsule active Not Available Not Available Not Available naproxen 250 mg tablet active Not Available Not Available Not Available amoxicill in 500 mg tablet take 1 tablet by oral route 3 times every day for 10 days 02/27 completed Prescrib ed Elsewher e: No Locat ion: [facility] odify By: alvaro burrell DateTime : 02/28/20 17 11:25:23 AM Not Available Not Available Not Available simvastat in 40 mg tablet take 1 tablet by oral route every day in the evening active Prescrib ed Elsewher e: Yes Loca tion: [facility] odify By: munira Beyer ncounter DateTime : 01/24/20 14 08:30:00 AM Not Available Not Available Not Available ciclopiro x 8 % topical solution active Not Available Not Available Not Available doxycycli ne monohydra te 50 mg capsule take 1 capsule by oral route every 12 hours 10/11 completed Prescrib ed Elsewher e: Yes Loca tion: [facility] odify By: cameron Jackson r DateTime : 02/15/20 16 11:30:00 AM Not Available Not Available Not Available Metrogel Vaginal 0.75 % (37.5 mg/5 gram) insert 1 applicat orful by vaginal route every day at bedtime 02/20 completed Prescrib ed Elsewher e: No Locat ion: [facility] odify By: munira bergeronuntmilan DateTime : 05/16/19 17 12:21:22 PM Not Available Not Available Not Available famotidin e 20 mg tablet take 1 tablet by oral route 2 times every day active Prescrib ed Elsewher e: Yes Loca tion: [facility] odify By: munira Beyer ncounter DateTime : 01/24/20 14 08:30:00 AM Not Available Not Available Not Available amlodipin e 5 mg-benaze pril 10 mg capsule take 1 capsule by oral route every day active Prescrib ed Elsewher e: Yes Loca tion: [facility] odify By: [email or web address] Encount er DateTime : 03/11/20 19 08:45:00 AM Not Available Not Available Not Available Amy 180 mg tablet take 1 tablet by oral route every day active Prescrib ed Elsewher e: Yes Loca tion: [facility] odify By: munira shah DateTime : 01/24/20 14 08:30:00 AM Not Available Not Available Not Available doxycycli ne monohydra te 100 mg capsule take 1 capsule by oral route daily 04/27 completed Prescrib ed Elsewher e: No Locat ion: [facility] odify By: jero shah DateTime : 04/23/20 15 08:13:02 AM Not Available Not Available Not Available Cipro 500 mg tablet take 1 tablet by oral route every 12 hours 04/23 completed Prescrib ed Elsewher e: No Locat ion: [facility] odify By: jero shah DateTime : 04/23/20 15 08:13:02 AM Not Available Not Available Not Available Tegretol XR 400 mg tablet,ex tended release take 1 tablet by oral route every 12 hours active Prescrib ed Elsewher e: Yes Loca tion: [facility] odify By: munira bergeronuntmilan DateTime : 01/24/20 14 08:30:00 AM Not Available Not Available Not Available metronida zole 0.75 % topical cream active Not Available Not Available Not Available monteluka st 10 mg tablet take 1 tablet by oral route every day in the evening active Prescrib ed Elsewher e: Yes Loca tion: [facility] odify By: munira shah DateTime : 01/24/20 14 08:30:00 AM Not Available Not Available Not Available metoprolo l succinate ER 25 mg tablet,ex tended release 24 hr TAKE 1 TABLET BY MOUTH EVERY DAY active Not Available Not Available No t Available azelastin e 137 mcg (0.1 %) nasal spray spray 2 spray by intranas al route 2 times every day in each nostril 2016 active Prescrib ed Elsewher e: Yes Loca tion: [facility] odify By: munira bergeronuntmilan DateTime : 02/21/20 17 01:30:00 PM Not Available Not Available Not Available estradiol 0.01% (0.1 mg/gram) vaginal cream Insert 1gm PV nightly x 2wks; then, 2x/wk for maintena nce. active Not Available Not Available No t Available albuterol sulfate HFA 90 mcg/actua tion aerosol inhaler INHALE 2 PUFFS BY MOUTH FOUR TIMES A DAY NEEDED FOR COUGH active Not Available Not Available No t Available ramipril 5 mg capsule take 1 capsule by oral route every day 03/11 completed Prescrib ed Elsewher e: Yes Loca tion: [facility] odify By: [email or web address] Encount er DateTime : 01/24/20 14 08:30:00 AM Not Available Not Available Not Available metronida zole 375 mg capsule take 1 capsule by oral route every 6 hours active Prescrib ed Elsewher e: Yes Loca tion: [facility] odify By: cameron Jackson r DateTime : 10/12/19 18 10:15:00 AM Not Available Not Available Not Available neomycin 3.5 mg/g-poly myxin B 10,000 unit/g-de xameth 0.1 % eye oint APPLY A SMALL AMOUNT ON EYELID THREE TIMES A DAY active Not Available Not Available No t Available Bactrim DS 800 mg-160 mg tablet take 1 tablet by oral route every 12 hours 10/11 completed Prescrib ed Elsewher e: No Locat ion: [facility] odify By: cameron Jackson r DateTime : 02/28/20 17 11:28:06 AM Not Available Not Available Not Available Vitamin B-12 ER 1,000 mcg tablet,ex tended release 2014 active Prescrib ed Elsewher e: Yes Loca tion: [facility] odify By: munira Beyer ncounter DateTime : 04/22/20 15 04:30:00 PM Not Available Not Available Not Available Mucinex 600 mg tablet, extended release take 1 tablet by oral route every 12 hours as needed active Prescrib ed Elsewher e: Yes [facility] By: munira Beyer ncounter DateTime : 01/24/20 14 08:30:00 AM Not Available Not Available Not Available Vitamin D3 25 mcg (1,000 unit) capsule 04/23 completed Prescrib ed Elsewher e: Yes Loca tion: [facility] odify By: alvaro burrell DateTime : 01/24/20 14 08:30:00 AM Not Available Not Available Not Available Premarin 0.625 mg/gram vaginal cream insert 1 gram by vaginal route every bedtime 08/02 completed Prescrib ed Elsewher e: No Locat ion: [facility] odify By: nelsy Beyer ncounter DateTime : 07/11/19 19 10:46:43 AM Not Available Not Available Not Available nitrofura ntoin monohydra te/macroc rystals 100 mg capsule take 1 capsule by oral route every 12 hours with food active Not Available Not Available No t Available Tegretol active Not Available Not Avai lable Not Available Metrogel Vaginal active Not Available Not Available Not Available famotidin e active Not Available Not Available Not Available amlodipin e active Not Available Not Available Not Available simvastat in active Not Available Not Available Not Available Vitamin D active Not Available Not Patricia ilable Not Available monteluka st active Not Available Not Available Not Available Synthroid active Not Available Not Patricia ilable Not Available azelastin e active Not Available Not Available Not Available Keppra active Not Available Not Availa ble Not Available Mucinex active Not Available Not Avail able Not Available azelastin e 205.5 mcg (0.15 %) nasal spray SPRAY 1 SPRAY INTO EACH NOSTRIL TWICE A DAY active Not Available Not Available No t Available vitamin B12 500 mcg-folic acid 400 mcg tablet 04/22 completed Prescrib ed Elsewher e: Yes Loca tion: [facility] odify By: amkiran bergeronunter DateTime : 02/03/20 15 08:30:00 AM Not Available Not Available Not Available Amy Allergy active Not Available Not Available Not Available metoprolo l gabriel-hydroc hlorothia z active Not Available Not Available Not Available Multi Vitamin active Not Available Not Available Not Available Centrum Silver Women 8 mg iron-400 mcg-50 mcg tablet 10/11 completed Prescrib ed Elsewher e: Yes Loca tion: [facility] odify By: cameron barnett DateTime : 04/22/20 15 04:30:00 PM Not Available Not Available Not Available Vitamin B12 active Not Available Not Available Not Available Kapspargo Sprinkle 25 mg capsule,e xtended release 03/11 completed Prescrib godwin Abad e: Yes [facility] By: [email or web address] Encount er DateTime : 08/03/19 19 02:00:00 PM Not Available Not Available Not Available Fluzone Quad (PF) 60 mcg (15 mcg x 4)/0.5 mL IM syringe active Not Available Not Available Not Available Vitals Date Recorded Body height Body mass index (BMI) Body weight Provider Name and Address Organization Details Last Updated DateTime 03/16/2020 170.18 cm 21.9 kg/m2 63354.93 g Disha Wayne [facility] 03/16/2020 10:35:02 Date Recorded Systolic blood pressure Diastolic blood pressure Provider Name and Address Organization Details Last Updated DateTime 03/16/2020 130 mm[Hg] 82 mm[Hg] Serene Angeles, [facility]- [address], [place], [address], [facility] 03/16/2020 13:01:19 Social History None recorded. Functional Status None recorded. Mental Status None recorded. Family History Relationship Description Onset Age of this Age Resolved Age Notes LastModified by Organization Details LastModified Time Mother Hypertensive disorder [email or web address] Not available 2019 10:22:47 Mother Hypercholest erolemia [email or web address] Not available 2019 10:24:26 Mother Embolism Not available 03/16/2020 10:24:38 Father Hypertensive disorder [email or web address] Not available 2019 10:22:47 Father Hypercholest erolemia [email or web address] Not available 2019 10:24:26 Father Heart disease [email or web address] Not available 2019 10:24:50 Sister Hypertensive disorder [email or web address] Not available 2019 10:22:47 Sister Hypercholest erolemia [email or web address] Not available 2019 10:24:26 Brother Hypertensive disorder [email or web address] Not available 2019 10:22:47 Brother Hypercholest erolemia [email or web address] Not available 2019 10:24:26 Brother Carcinoma of prostate [email or web address] Not available 2019 10:25:14 Maternal Uncle Hypertensive disorder [email or web address] Not available 2019 10:22:47 Maternal Grandmother Seizure disorder [email or web address] Not available 2019 10:24:59 Notes:Brother: Cancer, prost ate, Hypertension, Hyperlipidemia Father: Hypertension, Congenital heart disease, Hyperlipidemia Maternal grandmother: Seizure disorder Maternal uncle: Hypertension Mother: embolism, Hypertension, Hyperlipidemia Sister: Hyperlipidemia, Hypertension Medical History Condition Response Thyroid Problems Y High Cholesterol Y Hypertension Y Gynecological History Statement/Question Response Current Control Method None Obstetrics History GPAL:G 0 P 0 0 0 0 Past Encounters Encounter ID Performer Location Encounter Start Date Encounter Closed Date Diagnosis/Indication Diagnosis SNOMED-CT Code Diagnosis ICD10 Code Diagnosis Note [id number] Serene Angeles [facility] [address] [address] 03/16/2020 10:06:47 03/16/2020 14:32:30 Gynecologic examination 08268456 Z01.419 Take Calcium with Vitamin D 12-1500mg daily. Do monthly self breast exams. It is advised to get annual flu shot in the fall and she could obtain at [facility] or [facility] care clinic. If you haven't received the Tdap vaccine in the last 10 years you should obtain one as well. Have mammogram yearly, bone density every 2-3 years and colonoscop y every 5-10 years depending on findings and history. Engage in daily exercise of low impact aerobic exercise 45-60 minutes 4-5 times weekly. Avoid tobacco and illicit drugs as well as using moderation with alcohol intake less than 1-2 8 oz beverages daily. This lifestyle behavior pattern will lead to less health conditions and longer life span. If BMI greater than 25 weight watchers or dietary consult advised. Questions have been answered. Patient appears to understand instructio ns, but if you have any further questions call or respond to this email Pap/hpv updated Monogamous relationsh ip x 14yrs Not SA at this time. If pap/hpv wnl can consider next pap/hpv at age 63yo unless otherwise indicated. per asccp. Atrophy of vagina 890918 009 N95.2 Estrace sent Will call if newer products are covered by insurance. Imvexxy or Intrarosa. Health Concerns Section Related Observation LastModified by Organization Detai ls LastModified Time None Recorded Concern Status LastModified by Organization Details LastModified Time None Recorded Advance Directives Directive None Recorded Payers Encounter Date Sequence Insurance Name Policy Number Policy Silva Covered Member ID Silva Member ID Guarantor Name 03/16/2020 1 [place] [id number] T Mingo Leona Anu [id number] Notes Date Note Type Note Provider Name and Address Organization Details Recorded Time 03/16/2020 text/html Annual GYNReport ed bypatient.History: no gynecologic complaints Menstrual cycle:Normal menses Urinary symptoms:No hematuria; No incontinence Vulva:No genital lesion Vagina:Normal vaginal discharge Breast:No breast pain; No breast lump; No nipple discharge Current Contraception:Not sexually active Sexual complaints:No sexual complaints; No pain during intercourse; Normal libido Menopausal Symptoms:No menopausal symptoms; Normal vaginal lubrication Psychological symptoms:No depression; No anxiety; No PMDD Preventive measures:Encourage self breast examination; Encourage regular exercise; Encourage no tobacco use; Encourage regular mammograms starting age 40; Needs to schedule mammogram; Up to date on colonoscopy screening Serene Angeles, [facility]- [address], [place], [address], [facility] 03/16/2020 13:02:55 OBGyn Episode No OBEpisode recorded.
--- OUTSIDE RECORDS SUMMARY | 2024-07-17 12:35 | XMS_ITS | Encounter Summary ---
Author Organization [facility] Healthcare Address [address] [place] [address] Care Team Providers Care Network Support Technician Name Role Phone Mac Slaughter MD Primary Care Provider [phone] Reason for Referral * Neurology (Routine) - Closed Specialty Diagnoses / Procedures Referred By Contac t Referred To Contact Neurology Diagnoses Numbness and tingling of upper extremity Procedures EMG/NCV -Please select the performing region: [facility] (All Locations); Procedure performed at: [facility] EMG Lab; Clinical Summary: numbness and tingling in the upper extremities; Reason for referral or diagnostic question: numbness and... Mac Slaughter MD [address], [place] [address] Phone: tel: fax: [facility] Neurological Testing [address] [place] [address] Phone: tel: fax: Referral ID Status Reason Start Date Expiration Date Visits Re quested Visits Authorized [id number] Closed 05/16/2019 11/24/2020 1 1 [employer] Encounter Details Date Type Department Care Team (Late st Contact Info) Description 05/16/2019 Orders Only Internal Medicine Mac Slaughter MD [address] [place] [address] Numbness and tingling of upper extremity (Primary Dx) Social History Tobacco Use Types Packs/Day Years Used Date Smoking Tobacco: Never Smokeless Tobacco: Never Alcohol Use Standard Drinks/Week Comments No 0 (1 standard drink = 0.6 oz pur e alcohol) Comments Unknown Sex and Gender Information Value Date Recorded Sex Assigned at Not on file Legal Sex Female 3:59 AM [employer] Gender Identity Female 08/16/2020 2:35 PM CDT Sexual Orientation Straight 08/16/2020 2: 35 PM CDT documented as of this encounter Progress Notes * Sana Thomason - 05/16/2019 1:21 PM CST ncs documented in this encounter Plan of Treatment Not on file documented as of this encounter Results * EMG/NCV (06/03/2019 2:30 PM [employer]) Anatomical Region Laterality Modality Other Narrative 06/03/2019 2:30 PM [employer] Kaci Smith MD 06/04/2019 9:29 AM EMG/NCV -Please select the performing region: [facility] (All Locations); Procedure performed at: [facility] EMG Lab; Clinical Summary: numbness and tingling in the upper extremities; Reason for referral or diagnostic question: numbness and... Date/Time: 06/04/2019 9:27 AM Performed by: Kaci Smith MD Authorized by: Mac Slaughter MD Mac Slaughter MD NEUROLOGY ORDERABLES Final Re sult documented in this encounter Visit Diagnoses Diagnosis Numbness and tingling of upper extremity- Primary Numbness and tingling of upper extremity documented in this encounter Care Teams Network Support Technician Relationship Specialty Start Date End Date Mac Slaughter MD [address] [address] PCP - General 11/14/17 documented as of this encounter
--- OUTSIDE RECORDS SUMMARY | 2024-07-17 12:35 | XMS_ITS | Referral Summary ---
Author Organization [facility] Address [address] [place] [address] Care Team Providers Care History Card Clerk Name Role Phone Unavailable Primary Care Provider Unavailabl e Source Comments [facility],non-owned Affiliates and Associated Physician Practices is amultiple site organization consisting of ambulatory clinics and hospital sitesin [place], [place], [place] and [place]. This disclosure is being madepursuant to the Care Everywhere program and may not contain all information available regarding this patient. Last updated 18.[facility] Social History Tobacco Use Types Packs/Day Years Used Date Smoking Tobacco: Never Assessed Sex and Gender Information Value Date Recorded Sex Assigned at Not on file Gender Identity Not on file Sexual Orientation Not on file Plan of Treatment Not on file
--- OUTSIDE RECORDS SUMMARY | 2024-07-17 12:35 | XMS_ITS | Referral Summary ---
Author Organization [facility] al Address [address] [place] [address] Care Team Providers Care Envelope Fold Operator Name Role Phone Mac Slaughter MD Primary Care Provider [phone] Encounters Date Type Department Care Team Description 07/11/2024 Results Follow-Up [facility] [address] [phone] Mac Slaughter MD 07/03/2024 Results Follow-Up [facility] [id number] [place] [phone] Mac Slaughter MD 07/03/2024 Telephone [facility] Obstetrical Gynecology [address] [facility] [address] [place] [address] Shannon Paiz MD Vaginal Discharge 07/03/2024 10:09 AM INDUSTRIAL ENG - 07/03/2024 11:59 PM INDUSTRIAL ENG Hospital Encounter [facility] Medical Office Bldg 1 Breast [facility] [address] [facility] [address] [place], [place] [phone] Encounter for screening mammogram for malignant neoplasm of breast Discharge Disposition: Discharge to home or self care 06/13/2024 10:15 AM INDUSTRIAL ENG Office Visit [facility] Otol[facility] [address] [place] [address] Fred Pittman II, MD Allergic rhinitis due to pollen 05/31/2024 Telephone [facility] Endocrinology Metabolism and Lipid [address] [place] [address] [address] [place] [address] Jd Inman RN 05/31/2024 8:30 AM INDUSTRIAL ENG Office Visit [facility] Cardiology [address] [place] [address] Su Lozada MD SVT (supraventricular tachycardia) (Primary Dx); Essential hypertension; Pure hypercholesterolemia 05/30/2024 5:40 PM INDUSTRIAL ENG Lab [facility] [address] [place] [address] Abnormal thyroid function test 05/30/2024 2:00 PM INDUSTRIAL ENG Office Visit [facility] Endocrinology Metabolism and Lipid [address] [facility] 5th [place] [address] [place] [address] Kaya Farah MD Abnormal thyroid function test (Primary Dx); Post-surgical hypothyroidism 05/22/2024 Orders Only [facility] [address] [facility] [address] [place] [address] Sana Thomason [place] Post-surgical hypothyroidism (Primary Dx) 05/22/2024 10:30 AM INDUSTRIAL ENG Office Visit [facility] [address] [facility] [address] [place] [address] Mac Slaughter MD Essential hypertension (Primary Dx); Pure hypercholesterolemia; Post-surgical hypothyroidism 05/17/2024 [facility] [address] [facility] [address] [place] [address] King Sana [place] from Last 3 Months Allergies Active Allergy Reactions Criticality Noted Date Comments Cefuroxime Nausea & Vomiting,Nausea only,Vomiting Low Reaction: Nausea, Vomiting, face rash, Ciprofloxacin Dizziness Low 03/11/2019 Iodinated Contrast Media Seizures High 06/17/2019 Iodine And Iodide Containing Products Anaphylaxis High Reaction: Anaphylaxis, Swelling, vomiting, rash, seizures Latex Rash Medium 08/14/2017 Penicillin Nausea & Vomiting Low 02/27/2017 Medications multivitamin tablet tablet take 1 tablet by oral route every day with food 0 0 04/20/20 16 Active fexofenadine (YANDEL ALLERGY) 180 mg tablet take 1 tablet by oral route every day 0 0 08/26/19 16 Active cyanocobalamin (vitamin B-12) 1,000 mcg tablet take 1 by Oral route every day 0 0 08/26/19 16 Active guaiFENesin ER (MUCINEX) 600 mg 12 hr tablet Take 1 tablet (600 mg total) by mouth daily Active cholecalciferol (VITAMIN D-3) 1,000 unit capsule 10/07/19 20 Active aspirin 81 mg enteric coated tablet Take 1 tablet (81 mg total) by mouth daily Active neomycin-polymyxin B-dexAMETHasone (MAXITROL) 3.5 mg/g-10,000 unit/g-0.1 % ointment Active Symbicort 160-4.5 mcg/actuation inhaler INHALE 2 PUFFS BY MOUTH 2 TIMES A DAY RINSE MOUTH WITH WATER AFTER USE. DO NOT SWALLOW. 10.2 each 1 03/31/20 23 Active terbinafine (LamiSIL) 250 mg tablet Take 1 tablet (250 mg total) by mouth daily 06/01/19 24 Active lamoTRIgine (LaMICtal) 200 mg tablet Take 1 tablet (200 mg total) by mouth 2 (two) times a day 180 tablet 3 11/20/19 24 025 Active levETIRAcetam (KEPPRA) 500 mg tablet Take 1 tablet (500 mg total) by mouth 2 (two) times a day 180 tablet 3 11/20/19 24 025 Active simvastatin (ZOCOR) 40 mg tablet TAKE 1 TABLET BY MOUTH EVERY DAY 90 tablet 3 02/19/20 24 Active Additional Information Patient taking differently: As needed, Reported on 06/13/2024 erythromycin (ILOTYCIN) ophthalmic ointment LOCATION: RIGHT EYE. APPLY SMALL AMOUNT TO RIGHT LID 2 TIMES A DAY FOR 1 WEEK. 02/14/20 24 Active ivermectin-metroni dazole 1-1 % gel Apply topically Active amLODIPine-benazep riL (LOTREL 2.5-10) 2.5-10 mg per capsuleIndications :Essential hypertension Take 1 capsule by mouth daily 90 capsule 3 05/31/19 25 Active metoprolol XL (TOPROL-XL) 25 mg extended release tabletIndications: Essential hypertension,SVT (supraventricular tachycardia) Take 1 tablet (25 mg total) by mouth daily 90 tablet 3 05/31/19 25 Active LevoxyL 75 mcg tabletIndications: Post-surgical hypothyroidism 1 tab po morning with empty stomach, 45 minutes before food/medications /supplement. Taking consistently and correctly to ensure good/stable absorption of the thyroid hormone medication. 30 tablet 3 06/04/19 25 Active montelukast (SINGULAIR) 10 mg tabletIndications: Allergic rhinitis due to pollen Take 1 tablet (10 mg total) by mouth daily 90 tablet 3 06/13/19 25 Active metroNIDAZOLE (FLAGYL) 500 mg tablet Take 1 tablet (500 mg total) by mouth 2 (two) times a day for 7 days 14 tablet 07/03/19 25 025 Active Problems Problem Noted Date Diagnosed Date Allergic rhinitis due to pollen 06/13/2024 Family history of cerebral aneurysm 07/09/2023 Varicose veins of lower extremities with ulcer 0 06/21/2023 Venous insufficiency 08/19/2022 Gastroesophageal reflux disease 07/26/2022 Assessment & Plan (07/26/2022 12:58 PM CDT): Continue omeprazole 20mg daily x 6-8 weeks, then taper down If fails taper could continue Discussed retirement risks of PPI use F/U with Dr. Imelda BILLINGS Degenerative disc disease, lumbar 04/13/2022 Assessment & Plan (04/13/2022 10:41 AM INDUSTRIAL ENG): Encouraged stretching/yoga and core building Recently rejoined [facility] Post-surgical hypothyroidism 10/12/2021 Assessment & Plan (05/22/2024 11:13 AM INDUSTRIAL ENG): Stable. Labs next visit Assessment & Plan (10/12/2021 11:07 AM CDT): Labs today Has noted hair loss, no other symptoms Seasonal allergic rhinitis due to pollen 020 Acute nasopharyngitis 07/11/2019 Assessment & Plan (09/21/2023 10:53 AM CDT): OTC treatments Azithromycin given allergies Assessment & Plan (12/20/2022 2:56 PM CDT): Zpack Tessalon pearls PRN Warm salt gargles Localization-related symptom atic epilepsy and epileptic syndromes with complex partial seizures, not intractable, without status epilepticus 08/03/2018 Precordial pain 06/05/2018 SVT (supraventricular tachycardia) 06/05/2018 Assessment & Plan (04/13/2022 10:42 AM INDUSTRIAL ENG): Follows with Cardiology Cervical radiculopathy 12/17/2015 Essential hypertension 08/26/2015 Overview (08/11/2016): Essential hypertension with goal blood pressure less than 140/90 Assessment & Plan (05/22/2024 11:13 AM INDUSTRIAL ENG): Stable and doing well. Assessment & Plan (10/12/2021 11:06 AM CDT): At goal Continue current meds Pure hypercholesterolemia 08/26/2015 Overview (08/11/2016): Pure hypercholesterolemia Assessment & Plan (07/15/2020 10:32 AM INDUSTRIAL ENG): Lipids reviewed today Has wellness exam October 2020 and would consider NMR lipid panel at that time Family history of coronary artery disease 2015 Overview (08/11/2016): Family history of premature CAD Epilepsy with partial complex seizures 6 Assessment & Plan (04/13/2022 10:42 AM INDUSTRIAL ENG): Follows with Neuro Seizure free since 2009 Resolved Problems Problem Noted Date Diagnosed Date Resolved Date Acute recurrent maxillary sinusitis 03/24/2023 09/21/2023 Bronchitis 01/23/2023 09/21/2023 Assessment & Plan (01/23/2023 2:56 PM CDT): Prednisone 40mg daily x 5 days ProAir PRN Routine general medical exam ination at a health care facility 11/04/2022 09/21/2023 Assessment & Plan (11/04/2022 10:35 AM CDT): Had labs drawn yesterday, pending Needs Shingrix and PCV20 Tdap due 2026 COLO/MMG/DEXA UTD Goal of 150 min/weekly of moderate intensity activity TIA (transient ischemic attack) 02/10/2022 04/13/2022 Assessment & Plan (02/10/2022 1:37 PM CDT): Check 30 day event monitor, refer to neuro Tongue lesion 01/23/2021 10/12/2021 Pain of right lower extremity 11/16/2020 10/12/2021 Overview (11/16/2020): Do pt Neck pain 07/15/2020 10/12/2021 Assessment & Plan (07/15/2020 10:32 AM INDUSTRIAL ENG): OTC NSAID's PRN Zanaflex (use, safety, s/e reviewed) Heat PRN Gentle Stretches PT referral, if not improving in 4-6 weeks, or worsening, to contact office for imaging Tinnitus 10/07/2019 07/15/2020 Bilateral impacted cerumen 10/07/2019 0 07/15/2020 Leukopenia 09/17/2015 07/15/2020 Immunizations Immunization Administration Dates Next Due Influenza, Quadrivalent, Spl it, Preservative Free, Intramuscular 12/30/2019 Pneumococcal Conjugate Pcv20 03/28/2024 TD Preservative Free 10/26/2016 ZOSTER Recombinant 04/17/2023 Social History Tobacco Use Types Packs/Day Years Used Date Smoking Tobacco: Never Smokeless Tobacco: Never Tobacco Cessation:Counseling Given: Not Answered Alcohol Use Standard Drinks/Week Comments No 0 (1 standard drink = 0.6 oz pur e alcohol) Humiliation, Afraid, Rape, and Kick questionnair e Answer Date Recorded Within the last year, have y ou been afraid of your partner or ex-partner? No 11/04/2022 Within the last year, have y ou been humiliated or emotionally abused in other ways by your partner or ex-partner? No Within the last year, have y ou been kicked, hit, slapped, or otherwise physically hurt by your partner or ex-partner? No 11/04/2022 Within the last year, have y ou been raped or forced to have any kind of sexual activity by your partner or ex-partner? No 11/04/2022 AUDIT-C Answer Date Recorded Q1: How often do you have a drink containing alcohol? Never 11/04/2022 Q2: How many drinks containi ng alcohol do you have on a typical day when you are drinking? Patient does not drink Q3: How often do you have si x or more drinks on one occasion? Never 11/04/2022 PHQ-2 Answer Date Recorded PHQ-2 Total Score (If total score is 3 or more points, staff should administer the PHQ-9) 0 11/12/2023 Exercise Vital Sign Answer Date Recorde d On average, how many days pe r week do you engage in moderate to strenuous exercise (like a brisk walk)? 5 days 11/04/2022 On average, how many minutes do you engage in exercise at this level? 60 min 11/04/2022 Comments No Sex and Gender Information Value Date Recorded Sex Assigned at Not on file Legal Sex Female 3:59 AM INDUSTRIAL ENG Gender Identity Female 08/16/2020 2:35 PM CDT Sexual Orientation Straight 08/16/2020 2: 35 PM CDT Last Filed Vital Signs Vital Sign Reading Time Taken Comments Blood Pressure 112/74 05/31/2024 8:18 AM INDUSTRIAL ENG Pulse 71 05/31/2024 8:18 AM INDUSTRIAL ENG Temperature 36.6 C (97.8 F) 05/30/2024 2:00 PM INDUSTRIAL ENG Respiratory Rate 18 06/13/2024 9:52 AM INDUSTRIAL ENG Oxygen Saturation 99% 05/31/2024 8:18 AM INDUSTRIAL ENG Inhaled Oxygen Concentration - - Weight 61.2 kg (135 lb) 06/13/2024 9:52 AM INDUSTRIAL ENG Height 172.7 cm (5' 8 ) 06/13/2024 9:52 AM INDUSTRIAL ENG Body Mass Index 20.53 06/13/2024 9:52 AM INDUSTRIAL ENG Plan of Treatment Not on file Procedures Procedure Name Priority Date/Time Associated Diagnosis Comments MEASLES IGG ANTIBODY Routine 07/10/2024 9:31 AM INDUSTRIAL ENG Immunization contraindicated SCREENING MAMMOGRAM BILATERAL W MANOHAR Schedule Routine, Read Routine (OP Routine) 07/03/2024 10:28 AM INDUSTRIAL ENG Encounter for screening mammogram for malignant neoplasm of breast TSH Routine 05/30/2024 3:22 PM INDUSTRIAL ENG Abnormal thyroid function test T4, FREE Routine 05/30/2024 3:22 PM INDUSTRIAL ENG Abnormal thyroid function test T3, FREE Routine 05/30/2024 3:22 PM INDUSTRIAL ENG Abnormal thyroid function test T4, FREE Routine 05/16/2024 7:50 AM INDUSTRIAL ENG Hypothyroidism, unspecified type TSH Routine 05/16/2024 7:50 AM INDUSTRIAL ENG Hypothyroidism, unspecified type HEPATITIS C ANTIBODY Routine 11/15/2023 11:13 AM CDT Elevated blood sugar Pure hypercholesterolemia Essential hypertension Localization-related symptomatic epilepsy and epileptic syndromes with complex partial seizures, not intractable, without status epilepticus (HCC) Hypothyroidism, unspecified type Routine general medical examination at a health care facility Encounter for hepatitis C screening test for low risk patient PAP AND HIGH RISK HPV, REFLEX TO GENOTYPING Routine 06/08/2022 8:28 AM INDUSTRIAL ENG Encounter for screening for malignant neoplasm of cervix from Last 3 Months or Most Recently Relevant to Health Maintenance Results * Measles IgG antibody Blood (07/10/2024 9:31 AM INDUSTRIAL ENG) [facility] Measles IgG >300.0 Immune >16.4 AU/mL [facility] - Comment: Negative <13.5 Equivocal 13.5 - 16.4 Positive >16.4 Presence of antibodies to Rubeola is presumptive evidence of immunity except when acute infection is suspected. Blood 07/10/2024 9:31 AM INDUSTRIAL ENG 07/10/2024 Narrative [facility] - 07/11/2024 6:09 AM INDUSTRIAL ENG Performed at: [address] [place] [address] [address] [place], [place] [id number] Muck Farmer: Song Brooks PhD, Phone: [phone] Mac Slaughter MD LAB MICROBIOLOGY - GENERAL OR DERABLES Final Result GIANCARLO [facility] - 01 * Screening Mammogram Bilateral W Manohar (07/03/2024 10:28 AM INDUSTRIAL ENG) Anatomical Region Laterality Modality Breast Bilateral Mammography Impressions 07/03/2024 12:46 PM INDUSTRIAL ENG BI-RADS ATLAS category (overall): 1 - Negative There is no mammographic evidence of malignancy. A 1 year screening mammogram is recommended. The patient has been or will be contacted. We recommend annual screening mammography for women at average risk of breast cancer beginning at age 40, based on guidelines of the [employer] (ACR Practice Parameter for the Performance of Screening and Diagnostic Mammography) and [employer]. For women with and elevated risk of breast cancer, please refer to the ACR Practice Parameter for specific screening recommendations. The patient will be entered into a reminder system with a target due date of 1 year for her next screening exam. Narrative 07/03/2024 12:46 PM INDUSTRIAL ENG Screening Mammogram Bilateral W Manohar: 07/03/24 The study was acquired using full field digital technology and interpreted from soft copy. 2D digital mammographic views, as well as 3D digital tomosynthesis were performed in the CC and MLO projections. This study was resulted using Computer-Aided Detection (CAD). CLINICAL: Encounter for screening mammogram for malignant neoplasm of breast. No relevant medical history has been documented for this patient. No known family history of breast cancer. No comparisons were made when reading this study. BREAST TISSUE: The breasts are extremely dense, which lowers the sensitivity of mammography. FINDINGS: No suspicious masses, suspicious calcifications, or other suspicious findings are seen within either breast. There has been no suspicious change. Shannon Paiz MD IMG MAMMO PROCEDURES Marlene l Result * T3, free (05/30/2024 3:22 PM INDUSTRIAL ENG) Free T3 2.5 2.0 - 4.4 pg/mL Blood 05/30/2024 3:22 PM INDUSTRIAL ENG 05/30/2024 3:36 PM INDUSTRIAL ENG us Kaya Farah MD LAB BLOOD ORDERABLES Final Resul t Performing Organization Address [facility] de Phone Number [facility] [place] [address] * TSH (05/30/2024 3:22 PM INDUSTRIAL ENG) Thyroid Stimulating Hormone 1.71 0.30 - 4.20 mcIUnit/mL Blood 05/30/2024 3:22 PM INDUSTRIAL ENG 05/30/2024 3:49 PM INDUSTRIAL ENG Result Alex Farah MD LAB BLOOD ORDERABLES Final Resul t Performing Organization Address [facility] de Phone Number [facility] Department [place] [address] * T4, free (05/30/2024 3:22 PM INDUSTRIAL ENG) Free T4 1.70 0.90 - 1.70 ng/dL Blood 05/30/2024 3:22 PM INDUSTRIAL ENG 05/30/2024 3:36 PM INDUSTRIAL ENG Result Alex Farah MD LAB BLOOD ORDERABLES Final Resul t Performing Organization Address [facility] de Phone Number [facility] [place] [address] * TSH (05/16/2024 7:50 AM INDUSTRIAL ENG) TSH 2.140 0.450 - 4.500 uIU/mL [facility] - 01 Blood 05/16/2024 7:50 AM INDUSTRIAL ENG 05/16/2024 Narrative [facility] - 05/17/2024 3:35 AM INDUSTRIAL ENG Performed at: [address] [place] [id number] Muck Farmer: Song Brooks PhD, Phone: [phone] Mac Slaughter MD LAB BLOOD ORDERABLES Final Re sult Performing Organization Address [facility] Co de Phone Number [facility] - * (ABNORMAL) T4, free (05/16/2024 7:50 AM INDUSTRIAL ENG) [facility] T4,Free(Direct ) 1.96(H) 0.82 - 1.77 ng/dL [facility] - 01 Blood 05/16/2024 7:50 AM INDUSTRIAL ENG 05/16/2024 Narrative [facility] - 05/17/2024 3:35 AM INDUSTRIAL ENG Performed at: [address] [place] [id number] Muck Farmer: Song Brooks PhD, Phone: [phone] Mac Slaughter MD LAB BLOOD ORDERABLES Final Re sult Performing Organization Address [facility] Phone Number [facility] - * Hepatitis C antibody Blood (11/15/2023 11:13 AM CDT) [facility] Hep C Ab Non Reactive Non Reactive [facility] - 01 Comment: HCV antibody alone does not differentiate between previously resolved infection and active infection. Equivocal and Reactive HCV antibody results should be followed up with an HCV RNA test to support the diagnosis of active HCV infection. Blood 11/15/2023 11:1 3 AM CDT 11/15/2023 Narrative [facility] - 11/16/2023 5:09 AM CDT Performed at: [address] [place] [id number] Muck Farmer: Song Brooks PhD, Phone: [phone] us Mac Slaughter MD LAB MICROBIOLOGY - GENERAL OR DERABLES Final Result Performing Organization Address [facility] Co de Phone Number [facility] - 01 * Pap and High Risk HPV, reflex to Genotyping (06/08/2022 8:28 AM INDUSTRIAL ENG) Thin prep (Pap test) 06/08/2022 8:28 AM INDUSTRIAL ENG 06/08/2022 8:28 AM INDUSTRIAL ENG Narrative PATHOLOGY [facility] - 06/15/2022 4:22 PM INDUSTRIAL ENG [facility] Department of Pathology [address] [place] [address] Final Report with Addendum Note to Patients: This report may contain a detailed description of human tissue sent by a health care provider to the laboratory for pathologic evaluation. The content of this report is essential for diagnosis and may provide important critical findings. This information may be unfamiliar to patients to review without a medical professional present. It is advised that the patient review this report in the presence of a health care provider who can answer questions and explain the details. Patient Name: MADYSON ACUÑA Address: [address] [place] [phone] Gender: F : 1960 (Age: 61) Service: Location: N : [id number] [facility] #: [id number] Patient Type: [facility] SPECIMEN Taken: 06/08/2022 Received: 06/08/2022 Accessioned:: 06/09/2022 Reported: 06/15/2022 Physician(s): Shannon Paiz M.D. [facility] Diagnosis: Source of Specimen: SCREENING THIN PREP IMAGED PAP w/ HPV: Specimen Adequacy: - Specimen satisfactory for interpretation; indeterminate endocervical component due to marked atrophy General Categorization: - Negative for intraepithelial lesion or malignancy Interpretation: - Atrophic smear pattern ELOISE Sarabia(ASCP)Acacia Cam M.D. Report Electronically Reviewed and Signed Out By Acacia Cam M.D. 06/15/2022 16:22:01Addenda: HPV Test Interpretation NEGATIVE for types 16, 18, 31, 33, 35, 39, 45, 51, 52, 56, 58, 59, 66 and 68. Test performed utilizing Gen-Probe Aptima assay. ELOISE Mccarthy(ASCP)Report Electronically Reviewed and Signed Out By ELOISE Mccarthy(ASCP) 06/09/2022 15:13:15 Specimen(s) Received: A: SCREENING THIN PREP IMAGED PAP w/ HPV Clinical History: Menstrual History: Post-menopausal Routine Checkup The Pap test is a screening test used to aid in the detection of cervical cancer and its precursors. It should not be the sole means by which malignant and premalignant lesions are diagnosed. Both false negative and false positive results may occur. It also has poor sensitivity for the detection of endometrial lesions and should not be used to evaluate suspected endometrial abnormalities. For these reasons it is most important to obtain Pap tests at regular intervals. The performance characteristics of some immunohistochemical stains, fluorescence in-situ hybridization tests and immunophenotyping by flow cytometry cited in this report (if any) were determined by the Surgical Pathology Department at [facility] as part of an ongoing microbiology quality control technician program and in compliance with federally mandated regulations drawn from the Clinical Laboratory Improvement Act of 1988 (CLIA '88). Some of these tests rely on the use of analyte specific reagents and are subject to specific labeling requirements by the US Food and Drug Administration. Such diagnostic tests may only be performed in a facility that is certified by the Department of Health and Human Services as a high complexity laboratory under CLIA '88. The FDA has determined that such clearance or approval is not necessary. This test is used for clinical purposes. It should not be regarded as investigational or for research. Nevertheless, federal rules concerning the medical use of analyte specific reagents require that the following disclaimer be attached to the report: This test was developed and its performance characteristics determined by the Surgical Pathology Department [facility]. It has not been cleared or approved by the U. S. Food and Drug Administration. Shannon Paiz MD LAB CYTOLOGY ORDERABLES F inal Result [facility] from Last 3 Months or Most Recently Relevant to Health Maintenance Insurance [employer] Care Teams Envelope Fold Operator Relationship Specialty Start Date End Date Mac Slaughter MD [address] [address] PCP - General 11/14/17
--- OUTSIDE RECORDS SUMMARY | 2024-07-17 12:35 | XMS_ITS | Clinical Summary ---
Author Organization [facility] Address [address] [place] [address] Care Team Providers Care Cooler Worker Name Role Phone Unavailable Primary Care Provider Unavailabl e Source Comments [facility],non-owned Affiliates and Associated Physician Practices is amultiple site organization consisting of ambulatory clinics and hospital sitesin [place], [place], [place] and [place]. This disclosure is being madepursuant to the Care Everywhere program and may not contain all information available regarding this patient. Last updated 18.[facility] Social History Tobacco Use Types Packs/Day Years Used Date Smoking Tobacco: Never Assessed Sex and Gender Information Value Date Recorded Sex Assigned at Not on file Gender Identity Not on file Sexual Orientation Not on file Plan of Treatment Health Maintenance Due Date Last Done Comments COLOGUARD (AGES 45-75) - COL ON CA SCREENING 1960 COLON MONITORING 1959 COLONOSCOPY - COLON CA SCREENING 1959 CT COLONOGRAPHY - COLON CA SCREENING 1960 Colorectal Cancer Screening 1960 FIT - COLON CA SCREENING 1959 FLEX SIG - COLON CA SCREENING 1959 LIPID TESTING 1960 MAMMOGRAM 1960 PAP SMEAR 1959 HIV SCREENING 11/29/1974 HEPATITIS C SCREENING 11/25/1977 DTAP/TDAP/TD VACCINES (1 - Tdap) 11/29/1978 PNEUMOCOCCAL VACCINE 50+ (1 of 1 - PCV) 11/29/2009 ZOSTER VACCINE (1 of 2) 11/29/2009 COVID-19 VACCINE ( - 2023-2 5 season) 2024 INFLUENZA VACCINE (#1) 2024 DEPRESSION SCREENING 05/08/2024 Respiratory Syncytial Virus (RSV) Vaccine Pt: or over 60 yrs (1 - 1-dose 75+ series) 11/29/2034 HEPATITIS B VACCINE Aged Out No longe r eligible based on patient's age to complete this topic HIB VACCINE Aged Out No longer eligi ble based on patient's age to complete this topic HPV VACCINE Aged Out No longer eligi ble based on patient's age to complete this topic MENINGOCOCCAL (Group B) VACC INE SHARED DECISION-MAKING Aged Out No longer eligibl e based on patient's age to complete this topic MENINGOCOCCAL GROUPS A/C/Y/W VACCINE Aged Out No longer eligible b ased on patient's age to complete this topic PNEUMOCOCCAL VACCINE Aged Out No long er eligible based on patient's age to complete this topic
--- OUTSIDE RECORDS SUMMARY | 2024-07-17 12:35 | XMS_ITS | Clinical Summary ---
Author Organization [facility] Address [address] [place] [address] Care Team Providers Care Administrative Job Titles Name Role Phone Mac Slaughter MD Primary Care Provider [phone] Allergies Active Allergy Reactions Criticality Noted Date [...] route every day with food 0 0 08/26/19 16 Active fexofenadine (YANDEL ALLERGY) 180 mg [...] TIMES A DAY FOR 1 WEEK. 02/14/20 Active ivermectin-metroni dazole 1-1 % gel Apply [...] down If fails taper could continue Discussed unhairing inspector risks of PPI use F/U with Dr. 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 Labs next visit Assessment & Plan [...] 06/05/2018 Assessment & Plan (04/13/2022 10:42 AM SUPERVISOR [employer]): Follows with Cardiology Cervical radiculopathy 12/17/2015 Essential hypertension 08/26/2015 Overview (08/11/2016): Essential hypertension with goal blood pressure less than 140/90 Assessment & Plan (05/22/2024 11:13 AM SUPERVIS[employer]): Stable and doing well. Assessment & Plan (10/12/2021 11:06 AM CDT): At goal Continue current meds Pure hypercholesterolemia 08/26/2015 Overview (08/11/2016): Pure hypercholesterolemia Assessment & Plan (07/15/2020 10:32 AM SUPERVISOR [employer]): Lipids reviewed today Has wellness exam October 2020 and would consider NMR lipid panel at that time Family history of coronary artery disease 2015 Overview (08/11/2016): Family history of premature CAD Epilepsy with partial complex seizures 6 Assessment & Plan (04/13/2022 10:42 AM SUPERVISOR [employer]): Follows with Neuro Seizure free since 2009 [...] 10/12/2021 Assessment & Plan (07/15/2020 10:32 AM SUPERVISOR [employer]): OTC NSAID's PRN Zanaflex (use, safety, s/e reviewed) Heat PRN Gentle Stretches PT referral, if not improving in 4-6 weeks, or worsening, to contact office for imaging Tinnitus 10/07/2019 07/15/2020 Bilateral impacted cerumen 10/07/2019 0 07/15/2020 Leukopenia 09/17/2015 07/15/2020 Encounters Date Type Department Care Team Description 07/11/2024 Results Follow-Up [facility] [address] [place] [address] Mac Slaughter MD 07/03/2024 10:09 AM SUPERVISOR [employer]UR[employer] - 07/03/2024 11:59 PM SUPERVISOR [employer] Hospital Encounter [facility] Medical Office [address] [facility] [address] [facility] [facility] [address] [place] [address] Encounter for screening mammogram for malignant neoplasm of breast Discharge Disposition: Discharge to home or self care 07/03/2024 Results Follow-Up [facility] [address] [facility] [address] [place] [address] Mac Slaughter MD 07/03/[address] [facility] Obstetrical Gynecology [address] [facility] [address] [place] [phone] Shannon Paiz MD Vaginal Discharge 06/13/2024 10:15 AM [employer]PER[employer]OR [employer] Office Visit [facility] Otolaryngology [address] [place] [address] Fred Pittman II, MD Allergic rhinitis due to pollen 05/31/2024 8:30 AM SUPERVISOR [employer] Office Visit [facility] Cardiology [address] [facility] [[email or web address] [address] [place] [address] Su Lozada MD SVT (supraventricular tachycardia) (Primary Dx); Essential hypertension; Pure hypercholesterolemia 05/31/2024 Telephone [facility] Endocrinology Metabolism and Lipid 1 [facility] [address] [place] [address] Jd Inman RN 05/30/2024 5:40 PM [employer] Lab [facility] ([facility] [address] [place] [address] Abnormal thyroid function test 05/30/2024 2:00 PM [employer] Office Visit [facility] Endocrinology Metabolism and Lipid [address] [place] [address] 5th [place] [address] [place] [address] Kaya Farah MD Abnormal thyroid function test (Primary Dx); Post-surgical hypothyroidism 05/22/2024 10:30 AM [employer] Office Visit [facility] [address] [place] [phone] Mac Slaughter MD Essential hypertension (Primary Dx); Pure hypercholesterolemia; Post-surgical hypothyroidism 05/22/[address] [facility] [address] [place] [phone] Sana Thomason MA Post-surgical hypothyroidism (Primary Dx) 05/17/[address] [facility] [address] [place] [phone] Sana Thomason MA from Last 3 Months Immunizations Immunization Administration Dates Next Due Influenza, Quadrivalent, Spl it, Preservative Free, Intramuscular 12/30/2019 Pneumococcal Conjugate Pcv20 03/28/2024 TD Preservative Free 10/26/2016 ZOSTER Recombinant 04/17/2023 Surgical History Surgery Date Site/Laterality Comments THYROIDECTOMY Thyroidectomy CYSTOGRAPHY DILATION AND CURETTAGE OF UTERUS Medical History Medical History Date Comments Gastroesophageal reflux disease GERD Seizure disorder (HCC) Seizure d isorder Disorder of thyroid Thyroid dise ase Allergic rhinitis Eustachian tube dysfunction Hypertension Hyperlipemia Supraventricular tachycardia Seizure disorder (HCC) Tinnitus Osteoporosis 2017 Ear problems Family History Medical History Relation Name Comments Cancer Brother 1 Hunter Colmenarese Hyperlipidemia Brother 1 Hunter Colmenarese Hypertension Brother 1 Hunter Colmenarese Other Brother 1 Hunter Bethany HTN< HLD; Hyperlipidemia Brother 2 Francisco Acuña Hypertension Brother 2 Francisco Colmenarese Prostate cancer Brother 2 Francisco Acuña Family histo ry of malignant neoplasm of prostate - (Added by TW Conv) Hypertension Brother 3 Aaron Acuña Heart attack Father Sylwia Acuña Hyperlipidemia Father Sylwia Acuña Hypertension Father Sylwia Acuña Other Father Sylwia Acuña Myocardial infa rction; CAD started in 40's; Cause of : Myocardial infarction; CAD started in 40's Seizures Maternal Grandmother Brain Aneurysm Mother Marivel Acuña Brain aneurys m; Cause of : Brain aneurysm Clotting disorder Mother Marivel Acuña Hyperlipidemia Mother Marivel Acuña Hypertension Mother Marivel Acuña Memory loss Mother Marivel Acuña Stroke Mother Marivel Acuña Heart attack Paternal Grandfather Stanislaw Acuña Myocard ial infarction; Cause of : Myocardial infarction Hyperlipidemia Sister Zaria Juárez Hypertension Sister Zaria Juárez Relation Name Status Comments Brother 1 Hunter Acuña Brother 2 Francisco Acuña Brother 3 Aaron Acuña Father Sylwia Acuña (Age 75) Maternal Grandmother Mother Marivel Acuña (Age 82) Paternal Grandfather Stanislaw Acuña Sister Zaria Juárez Social History Tobacco Use Types Packs/Day Years [...] on file Legal Sex Female 3:59 AM SUPERVISOR [employer] Gender Identity Female 08/16/2020 2:35 PM CDT Sexual Orientation Straight 08/16/2020 2: 35 PM CDT Obstetrics History Para Term AB IAB SAB Ectopic Multiple Livin g Live Births 0 0 0 0 0 0 0 0 0 0 0 Last Filed Vital Signs Vital Sign Reading Time Taken Comments Blood Pressure 112/74 05/31/2024 8:18 AM [employer] Pulse 71 05/31/2024 8:18 AM [employer] Temperature 36.6 C (97.8 F) 05/30/2024 2:00 PM [employer] Respiratory Rate 18 06/13/2024 9:52 AM [employer]PERVISOR [employer] Oxygen Saturation 99% 05/31/2024 8:18 AM [employer] Inhaled Oxygen Concentration - - Weight 61.2 kg (135 lb) 06/13/2024 9:52 AM [employer] Height 172.7 cm (5' 8 ) 06/13/2024 9:52 AM [employer] Body Mass Index 20.53 06/13/2024 9:52 AM [employer]PERVISOR [employer] Plan of Treatment Health Maintenance Due Date Last Done Comments Hepatitis B Screening 11/29/1977 DTaP/Tdap/Td Vaccine (1 - Tdap) 10/27/2016 10/26/2016 Cervical Cancer Screening 06/08/2023 06/08/2022 Regular Well Visit/Exam 18-64 07/19/2024 07/20/2023, 11/04/2022, 10/06/2020 Depression Screening 11/14/2024 11/15/2023, 11/05/19 Breast Cancer Screening-Mammogram 07/03/2025 07/03/2024, 06/30/2022, 05/11/2021, Additional history exists Colon Cancer Screening-Colonoscopy 07/01/2031 07/01/2021 Zoster Vaccine Completed 04/17/2023, 11/23/2022 Hepatitis C Screening Completed 11/15/2023 Influenza Vaccine Completed 12/17/2023, , 01/22/2022, Additional history exists Covid-19 Vaccine Completed 02/05/2024, 10/2023, 02/06/2023, Additional history exists Pneumococcal vaccine <65 Aged Out 03/28/2024 No longer eligible based on patient's age to complete this topic Procedures Procedure Name Priority Date/Time Associated Diagnosis Comments MEASLES IGG ANTIBODY Routine 07/10/2024 9:31 AM SUPERVISOR [employer] Immunization contraindicated SCREENING MAMMOGRAM BILATERAL W MANOHAR Schedule Routine, Read Routine (OP Routine) 07/03/2024 10:28 AM [employer] Encounter for screening mammogram for malignant neoplasm of breast TSH Routine 05/30/2024 3:22 PM [employer] Abnormal thyroid function test T4, FREE Routine 05/30/2024 3:22 PM [employer] Abnormal thyroid function test T3, FREE Routine 05/30/2024 3:22 PM [employer] Abnormal thyroid function test T4, FREE Routine 05/16/2024 7:50 AM [employer] Hypothyroidism, unspecified type TSH Routine 05/16/2024 7:50 AM [employer] Hypothyroidism, unspecified type HEPATITIS C ANTIBODY Routine [...] REFLEX TO GENOTYPING Routine 06/08/2022 8:28 AM [employer]PER[employer]OR [employer] Encounter for screening for malignant neoplasm of cervix from Last 3 Months or Most Recently Relevant to Health Maintenance Results * Measles IgG antibody Blood (07/10/2024 9:31 AM SUPERVISOR [employer]) Measles IgG >300.0 Immune >16.4 AU/mL [facility] - 01 Comment: Negative <13.5 Equivocal 13.5 - 16.4 Positive >16.4 Presence of antibodies to Rubeola is presumptive evidence of immunity except when acute infection is suspected. Blood 07/10/2024 9:31 AM SUPERVISOR [employer] 07/10/2024 Narrative [facility] - 07/11/2024 6:09 AM SUPERVISOR [employer] Performed at: [address] [place] [id number] Lidar Scientist: Song Brooks PhD, Phone: [phone] us Mac Slaughter MD LAB MICROBIOLOGY - GENERAL OR DERABLES Final Result [facility] - * Screening Mammogram Bilateral W Manohar (07/03/2024 10:28 AM SUPERVISOR [employer]) Anatomical Region Laterality Modality Breast Bilateral Mammography Impressions 07/03/2024 12:46 PM [employer]OR [employer] BI-RADS ATLAS category (overall): 1 - Negative There is no mammographic evidence of malignancy. A 1 year screening mammogram is recommended. The patient has been or will be contacted. We recommend annual screening mammography for women at average risk of breast cancer beginning at age 40, based on guidelines of the [place] [employer] (ACR Practice Parameter for the Performance of Screening and Diagnostic Mammography) and [place] [employer]. For women with and elevated risk of breast cancer, please refer to the ACR Practice Parameter for specific screening recommendations. The patient will be entered into a reminder system with a target due date of 1 year for her next screening exam. Narrative 07/03/2024 12:46 PM [employer] Screening Mammogram Bilateral W Manohar: 07/03/24 The [...] breast. There has been no suspicious change. Result [facility] Shannon Paiz MD IMG MAMMO PROCEDURES Marlene l Result * T3, free (05/30/2024 3:22 PM SUPERVISOR [employer]) Free T3 2.5 2.0 - 4.4 pg/mL Blood 05/30/2024 3:22 PM [employer] 05/30/2024 3:36 PM [employer]VISOR [employer] Result [facility] Kaya Farah MD LAB BLOOD ORDERABLES Final Resul t Performing Organization Address City/[facility] Co de Phone Number [facility] Department [place] [address] * TSH (05/30/2024 3:22 PM [employer]) Thyroid Stimulating Hormone 1.71 0.30 - 4.20 mcIUnit/mL Blood 05/30/2024 3:22 PM [employer] 05/30/2024 3:49 PM [employer] Result [facility] Kaya Farah MD LAB BLOOD ORDERABLES Final Resul t [facility] Department [place] [address] * T4, free (05/30/2024 3:22 PM [employer]) Free T4 1.70 0.90 - 1.70 ng/dL Blood 05/30/2024 3:22 PM [employer] 05/30/2024 3:36 PM [employer] Kaya Farah MD LAB BLOOD ORDERABLES Final Resul t [facility] Department [place] [address] * TSH (05/16/2024 7:50 AM SUPER[employer]) Pathologist [facility] TSH 2.140 0.450 - 4.500 uIU/mL [facility] - 01 Blood 05/16/2024 7:50 AM [employer] 05/16/2024 Narrative [facility] - 05/17/2024 3:35 AM [employer] Performed at: [address] [place] [id number] Lidar Scientist: Song Brooks PhD, Phone: [phone] Mac Slaughter MD LAB BLOOD ORDERABLES Final Re sult Performing Organization Address [facility] Co de Phone Number [facility] - * (ABNORMAL) T4, free (05/16/2024 7:50 AM [employer]) Pathologist [facility] T4,Free(Direct ) 1.96(H) 0.82 - 1.77 ng/dL [facility] - 01 Blood 05/16/2024 7:50 AM [employer] 05/16/2024 Narrative [facility] - 05/17/2024 3:35 AM [employer] Performed at: [facility] [id number] Lidar Scientist: Song Brooks PhD, Phone: [phone] Mac Slaughter MD LAB BLOOD ORDERABLES Final Re sult Performing Organization Address City/[facility] Co de Phone Number [facility] - * Hepatitis C antibody Blood (11/15/2023 11:13 AM CDT) Pathologist [facility] Hep C Ab Non Reactive Non Reactive [facility] - 01 Comment: HCV antibody alone does not differentiate between previously resolved infection and active infection. Equivocal and Reactive HCV antibody results should be followed up with an HCV RNA test to support the diagnosis of active HCV infection. Blood 11/15/2023 11:1 3 AM CDT 11/15/2023 Narrative [facility] - 11/16/2023 5:09 AM CDT Performed at: - [address] [id number] Lidar Scientist: Song Brooks PhD, Phone: [phone] us Mac Slaughter MD LAB MICROBIOLOGY - GENERAL OR DERABLES Final Result [facility] - 01 * Pap and High Risk HPV, reflex to Genotyping (06/08/2022 8:28 AM [employer]) Thin prep (Pap test) 06/08/2022 8:28 AM [employer] 06/08/2022 8:28 AM [employer] Narrative PATHOLOGY MB - 06/15/2022 4:22 PM [employer] [facility] Department of Pathology [address] [place], [place] [id number] Final Report with Addendum Note to Patients: [...] the details. Patient Name: MADYSON ACUÑA Address: [address] [place] [phone] Gender: F : 1960 (Age: 61) Service: Location: [facility] #: [id number] Patient Type: [facility] SPECIMEN Taken: 06/08/2022 Received: 06/08/2022 Accessioned:: 06/09/2022 Reported: 06/15/2022 Physician(s): Shannon Paiz M.D. [facility] Diagnosis: Source of Specimen: SCREENING THIN PREP [...] Electronically Reviewed and Signed Out By ELOISE Mccarthy(ASC) 06/09/2022 15:13:15 Specimen(s) Received: A: SCREENING THIN [...] determined by the Surgical Pathology Department at [facility] as part of an ongoing quality inspector program and in compliance with federally mandated [...] characteristics determined by the Surgical Pathology Department [facility]. It has not been cleared or approved by the U. S. Food and Drug Administration. Shannon Paiz MD LAB CYTOLOGY ORDERABLES F inal Result [facility] from Last 3 Months or Most Recently Relevant to Health Maintenance Insurance [employer] O[employer] ACCESS OOS [employer] ACCESS OOS Care Teams Administrative Job Titles Relationship Specialty Start Date End Date Mac Slaughter MD [address] [address] PCP - General 11/14/17
--- OUTSIDE RECORDS SUMMARY | 2024-07-17 12:35 | XMS_ITS | Encounter Summary ---
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
[2024-07-17 15:21] LABS: Free T4 Free Thyroxine 1.95 ng/dL (0.78-2.19)
== END 2024-07-17 10:53 | disposition home or self-care (01) ==
PROVIDERS: PCP Internal Medicine
DX: E89.0 Postprocedural hypothyroidism (principal); R94.6 Abnormal results of thyroid function studies
CPT/HCPCS: 36415; 84439; 84443; 84481

== ENCOUNTER 2025-02-02 09:37 | Observation (INO) | payer MEDICARE, SELFPAY ==
[2025-02-02] VITALS (8 sets, daily range): BP systolic 130–142; BP diastolic 63–80; PULSE 62–87; RESP 13–16; TEMP 36.2–36.7; O2SAT 96–100; BMI 20.8
--- NOTE | ~2025-02-02 | CT_ITS ---
CT HEAD NON-CONTRAST Clinical History: DIZZINESS Comparison: CT head 01/27/2022 MRI brain 01/28/2022 Technique: Unenhanced axial images skull base to vertex Coronal, sagittal reformats CT images acquired with automatic exposure control for dose reduction DLP: 605 mGy-cm Findings: Hutton matter heterotopia right frontal lobe. Sulci, ventricles: Unremarkable. No intracerebral hemorrhage. No evidence acute territorial infarct. No mass effect, midline shift. Bony calvarium intact. Visualized paranasal sinuses: Clear. Mastoid air cells: Clear. IMPRESSION: 1. No acute intracranial findings. Reviewed, dictated and finalized at location R.
--- NOTE | ~2025-02-02 | CT_ITS ---
CTA NECK, CTA HEAD Clinical History: dizziness Comparison: Noncontrast CT brain same day TECHNIQUE: Helical images thoracic inlet to vertex IV contrast information not listed in PACS Coronal, sagittal reformats. Multi planar MIPS CT images acquired with automatic exposure control for dose reduction DLP: 3423 mGy-cm Findings: NASCET Criteria utilized CTA NECK Aortic arch: No aneurysm or dissection. Great vessel origins: No stenosis. CCAs: No stenosis. Cervical ICAs: Mild bulb calcifications but no stenosis. Vertebral Arteries: Patent. Bilateral proximal kink and/or stenosis Lung Apices: Clear. Thyroid: Unremarkable. Nodes: No enlarged nodes. Bones: No acute bony abnormality. CTA HEAD: Aneurysms: None. Intracranial ICAs: Patent, unremarkable. ACAs and their distal branches: Patent, unremarkable. A-Comm: Identified. Patent, unremarkable. MCAs and their distal branches: Patent, unremarkable. Basilar artery: Patent, unremarkable. livestock nutritionist and their distal branches: Patent, unremarkable. P-Comms: Right side identified. IMPRESSION: CTA NECK: 1. No acute findings. CTA HEAD: 1. No acute findings. Reviewed, dictated and finalized at location R.
--- NOTE | ~2025-02-02 | XR_ITS ---
Examination: XR chest 2V Clinical History: dizziness Comparison: 01/27/2022 Technique: PA and Lateral Findings: Cardiomediastinal silhouette normal size and configuration. Hyperinflation. No acute bony abnormality. IMPRESSION: 1. No acute cardiopulmonary findings. Reviewed, dictated and finalized at location R.
--- NOTE | ~2025-02-02 | MR_ITS ---
EXAMINATION: MR brain/brain stem wo con DATE: 02/03/2025 12:02 INDICATION: Dizziness TECHNIQUE: Magnetic resonance imaging (MRI) of the brain and brainstem was performed without intravenous contrast. Sequences included sagittal and axial T1-weighted SE, axial diffusion-weighted FS SE, axial 3D SWAN, axial T2-weighted FLAIR, and axial T2-weighted FSE. Apparent diffusion coefficient (ADC) maps were created. COMPARISON: Head CT and CT angiogram dated 02/02/2025 and brain MR dated 01/28/2022 FINDINGS: There are no areas of restricted diffusion to suggest acute infarction. No intracranial hemorrhage or abnormal intracranial mass lesion. There are scattered areas of nonspecific increased T2-weighted signal intensity in the cerebral white matter, predominantly involving the deep and periventricular whi te matter. Again seen are couple small meeks matter heterotopias in the right frontal lobe extending across the periventricular white matter to the margins of the right lateral ventricle. There are no intraparenchymal signal abnormalities seen on the other pulse sequences. Again noted is an absent septum pellucidum. The ventricles are symmetric and normal in size. There are no abnormal extra- axial fluid collections. Flow voids are seen in the cerebral arteries on the T2- weighted sequences consistent with their expected patency. Visualized orbits and soft tissues are unremarkable. IMPRESSION: 1. No acute intracranial process. 2. 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 3. No significant change in mild periventricular predominant calcific white matter T2 hyperintensity consistent with chronic small vessel ischemic disease. Reviewed, dictated and finalized at location A. IMPRESSION: 1. No acute intracranial process. 2. Stable appearance of likely developmental abnormalities including a couple g ray matter heterotopias in the right frontal lobe and absent septum pellucidum. 3. No significant change in mild periventricular predominant calcific white mat ter T2 hyperintensity consistent with chronic small vessel ischemic disease.
--- OUTSIDE RECORDS SUMMARY | 2025-02-02 09:40 | XMS_ITS | Encounter Summary ---
Author Organization [facility] Address [address] [facility] [place] [address] Care Team Providers Care Grid Caster Name Role Phone Unavailable Primary Care Provider Unavailabl e Encounter Details Date Type Department Care Team (Late st Contact Info) Description 06/24/2021 Lab Requisition [facility] [address] 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 Gender Identity Not on file Sexual Orientation Not on file documented as of this encounter Plan of Treatment Not on file documented as of this encounter Procedures Procedure Name Priority Date/Time Associated Diagnosis Comments DERMATOPATHOLOGY Routine 06/23/2021 12:0 0 AM AIR DRIER MACHINE OPERATOR documented in this encounter Results * DERMATOPATHOLOGY (06/23/2021 12:00 AM AIR DRIER MACHINE OPERATOR) Case Report Dermatopathology Report Case: [id number] Authorizing Provider: Jesus Hurst Jr., MD Collected: 06/23/2021 12:00 AM Ordering Location: [facility] Received: 06/24/2021 11:46 AM Pathologist: Doyle Patricio MD Specimen: Skin, right chin 2 4:31 PM AIR DRIER MACHINE OPERATOR DERMATOPATHOLOGY LABORATORY Final Diagnosis Specimen A. SKIN, right chin: BASAL CELL CARCINOMA, NODULAR TYPE (C44.319) 2 4:31 PM AIR DRIER MACHINE OPERATOR DERMATOPATHOLOGY LABORATORY at 1631 AIR DRIER MACHINE OPERATOR Clinical History Basal cell carcinoma. 2 4:31 PM [facility] DERMATOPATHOLOGY LABORATORY Gross Description Specimen A: Received is one formalin filled container labeled with the patient's name and designated right chin. The specimen consists of a shave biopsy measuring 4x4x1 mm. Jar 0. 2 4:31 PM [facility] DERMATOPATHOLOGY LABORATORY Microscopic Description Specimen A. SKIN, right chin: Within the dermis there are aggregates of basaloid cells with a high nuclear to cytoplasmic ratio and peripheral palisading. 2 4:31 PM [facility] DERMATOPATHOLOGY LABORATORY Disclaimer An external and internal positive and negative controls are appropriate for the histochemical, immunohistochemical and immunofluorescence stain(s) in this case (if any), except where stated explicitly. The performance characteristics of the stain(s) cited in this report were developed and its performance characteristic determined by the Dermatopathology Laboratory at [facility], directed by Dr. Preston Patricio. These tests need not be, and therefore are not, approved by the [place] Food and Drug Administration. The tests are used for clinical purposes. Billing Codes Specimen Charges Stain Charges 75602 1 2 4:31 PM AIR DRIER MACHINE OPERATOR DERMATOPATHOLOGY LABORATORY Embedded Images 2 4:31 PM [facility] DERMATOPATHOLOGY LABORATORY Pathology/Cytolog y TISSUE SPECIMEN FROM SKIN / Unknown 06/23/2021 06/24/2021 11:46 AM AIR DRIER MACHINE OPERATOR Jesus Hurst Jr., MD LAB - PATHOLOGY/CYTOLOG Y ORDERABLES Final Result DERMATOPATHOLOGY LABORATORY [facility] - Department of Dermatology [address] [place] [address], [facility] [phone] documented in this encounter Visit Diagnoses Not on filedocumented in this encounter
--- OUTSIDE RECORDS SUMMARY | 2025-02-02 09:40 | XMS_ITS | Clinical Summary ---
Author Organization [facility] Address [address] [place] [address] Care Team Providers Care Patrol Deputy Sheriff Name Role Phone Mac Slaughter MD Primary Care Provider [phone] Allergies Active Allergy Reactions Criticality Noted Date Comments Cefuroxime Nausea & Vomiting,Nausea only,Vomiting Low Reaction: Nausea, Vomiting, face rash, Ciprofloxacin Dizziness Low 03/11/2019 Iodinated Contrast Media Seizures High 06/17/2019 Iodine And Iodide Containing Products Anaphylaxis High Reaction: Anaphylaxis, Swelling, vomiting, rash, seizures Latex Rash Medium 08/14/2017 Penicillin Nausea & Vomiting Low 02/27/2017 Penicillins Other (See comments) 08/01/2024 Medications multivitamin tablet tablet take 1 tablet [...] SWALLOW. 10.2 each 1 03/31/20 23 Active Additional Information Patient not taking.Reported on 01/16/2025 terbinafine (LamiSIL) 250 mg tablet Take 1 tablet (250 mg total) by mouth daily 06/01/19 24 Active simvastatin (ZOCOR) 40 mg tablet TAKE 1 TABLET BY MOUTH EVERY DAY 90 tablet 3 02/19/20 24 Active erythromycin (ILOTYCIN) ophthalmic ointment LOCATION: RIGHT EYE. APPLY SMALL AMOUNT TO RIGHT LID 2 TIMES A DAY FOR 1 WEEK. 02/14/20 24 Active ivermectin-metroni dazole 1-1 % gel Apply topically Active metoprolol XL (TOPROL-XL) 25 mg extended release tabletIndications: Essential hypertension,SVT (supraventricular tachycardia) Take 1 tablet (25 mg total) by mouth daily 90 tablet 3 05/31/19 25 Active montelukast (SINGULAIR) 10 mg tabletIndications: Allergic rhinitis due to pollen Take 1 tablet (10 mg total) by mouth daily 90 tablet 3 06/13/19 25 Active fluorometholone (FML) 0.1 % ophthalmic suspension INSTILL 1 DROP INTO BOTH EYES NEEDED 07/25/19 25 Active estradioL (VAGIFEM) 10 mcg tablet Insert 1 tablet (10 mcg total) into the vagina 2 (two) times a week 8 tablet 11 08/02/19 25 026 Active albuterol HFA (PROVENTIL HFA,VENTOLIN HFA,PROAIR HFA) 90 mcg/actuation inhaler Inhale 2 puffs every 6 (six) hours as needed for wheezing 1 each 10/03/19 25 026 Active methylPREDNISolone (MEDROL DOSEPACK) 4 mg Dosepack Take as directed on package. 21 tablet 10/05/19 25 Active Additional Information Patient not taking.Reported on 01/16/2025 LevoxyL 75 mcg tabletIndications: Post-surgical hypothyroidism 1 tab po morning with empty stomach, 45 minutes before food/medications /supplement. Taking consistently and correctly to ensure good/stable absorption of the thyroid hormone medication. 90 tablet 1 11/14/19 25 Active lamoTRIgine (LaMICtal) 200 mg tablet Take 1 tablet (200 mg total) by mouth 2 (two) times a day 180 tablet 3 11/20/19 25 026 Active levETIRAcetam (KEPPRA) 500 mg tablet Take 1 tablet (500 mg total) by mouth 2 (two) times a day 180 tablet 3 11/20/19 25 026 Active amLODIPine-benazep riL (LOTREL 2.5-10) 2.5-10 mg per capsuleIndications :Essential hypertension Take 1 capsule by mouth daily 90 capsule 3 12/04/19 25 Active doxycycline (VIBRAMYCIN) 100 mg capsuleIndications :Acute non-recurrent pansinusitis Take 1 tablet/capsule (100 mg total) by mouth 2 (two) times a day for 7 days 14 tablet/caps ule 01/17/20 25 025 Active Problems Problem Noted Date Diagnosed Date Hypothyroidism 09/04/2024 Allergic rhinitis due to pollen 06/13/2024 Family history of cerebral aneurysm 07/09/2023 Varicose veins of lower extremities with ulcer 0 06/21/2023 Bronchitis 01/23/2023 Assessment & Plan (10/02/2024 1:49 PM CDT): Doxy BID x 7d Albuterol PRN If fever not broke by Monday AM to let me know Assessment & Plan (01/23/2023 2:56 PM CDT): Prednisone 40mg daily x 5 days ProAir PRN Venous insufficiency 08/19/2022 Gastroesophageal reflux disease 07/26/2022 Assessment & Plan (07/26/2022 12:58 PM CDT): Continue omeprazole 20mg daily x 6-8 weeks, then taper down If fails taper could continue Discussed rn long term care risks of PPI use F/U with Dr. Segura PRN Degenerative disc disease, lumbar 04/13/2022 Assessment & Plan (04/13/2022 10:41 AM EMPLOYEE SERVICE OFFICER): Encouraged stretching/yoga and core building Recently rejoined [facility] Post-surgical hypothyroidism 10/12/2021 Assessment & Plan (05/22/2024 11:13 AM EMPLOYEE SERVICE OFFICER): Stable. Labs next visit Assessment & Plan (10/12/2021 11:07 AM CDT): Labs today Has noted hair loss, no other symptoms Seasonal allergic rhinitis due to pollen 020 Localization-related symptom atic epilepsy and epileptic syndromes with complex partial seizures, not intractable, without status epilepticus 08/03/2018 Precordial pain 06/05/2018 SVT (supraventricular tachycardia) 06/05/2018 Assessment & Plan (04/13/2022 10:42 AM EMPLOYEE SERVICE OFFICER): Follows with Cardiology Cervical radiculopathy 12/17/2015 Essential hypertension 08/26/2015 Overview (08/11/2016): Essential hypertension with goal blood pressure less than 140/90 Assessment & Plan (05/22/2024 11:13 AM EMPLOYEE SERVICE OFFICER): Stable and doing well. Assessment & Plan (10/12/2021 11:06 AM CDT): At goal Continue current meds Pure hypercholesterolemia 08/26/2015 Overview (08/11/2016): Pure hypercholesterolemia Assessment & Plan (07/15/2020 10:32 AM EMPLOYEE SERVICE OFFICER): Lipids reviewed today Has wellness exam October 2020 and would consider NMR lipid panel at that time Family history of coronary artery disease 2015 Overview (08/11/2016): Family history of premature CAD Epilepsy with partial complex seizures 6 Assessment & Plan (04/13/2022 10:42 AM EMPLOYEE SERVICE OFFICER): Follows with Neuro Seizure free since 2009 Resolved Problems Problem Noted Date Diagnosed Date Resolved Date Right ear pain 09/20/2024 10/02/2024 Acute recurrent maxillary sinusitis 03/24/2023 09/21/2023 Routine general medical exam ination at a [...] 10/12/2021 Assessment & Plan (07/15/2020 10:32 AM EMPLOYEE SERVICE OFFICER): OTC NSAID's PRN Zanaflex (use, safety, s/e reviewed) Heat PRN Gentle Stretches PT referral, if not improving in 4-6 weeks, or worsening, to contact office for imaging Tinnitus 10/07/2019 07/15/2020 Bilateral impacted cerumen 10/07/2019 0 07/15/2020 Acute nasopharyngitis 07/11/20192024 Assessment & Plan (09/21/2023 10:53 AM CDT): OTC treatments Azithromycin given allergies Assessment & Plan (12/20/2022 2:56 PM CDT): Irasema lao PRN Warm salt gargles Leukopenia 09/17/2015 07/15/2020 Encounters Date Type Department Care Team Description 01/16/2025 9:30 AM CDT Office Visit [facility] [address] [address] Elsa Lay NP Acute non-recurrent pansinusitis (Primary Dx) 12/05/2024 9:45 AM CDT Office Visit [facility] [address] [address] Keena Phillips, VALENTÍN Infected insect bite of buttock, initial encounter (Primary Dx) 11/19/2024 11:00 AM CDT Office Visit [facility] Epilepsy [address] [address] [place] [address] [place] [address] Edgar Clark MD PhD Localization-related symptomatic epilepsy and epileptic syndromes with complex partial seizures, not intractable, without status epilepticus (HCC) (Primary Dx) from Last 3 Months Immunizations Immunization Administration Dates Next Due Influenza, Quadrivalent, Vannessa l Culture-based MDCK, Preservative Free, Antibiotic Free, Intramuscular 01/22/2022 Influenza, Quadrivalent, Spl it, Preservative Free, Intramuscular 02/14/2023,01/17/2021,12/30/2019 Influenza, Trivalent, Preser vative Free, Intramuscular 12/17/2023 Pneumococcal Conjugate Pcv20 03/28/2024 TD Preservative Free 10/26/2016 ZOSTER Recombinant 04/17/2023,04/14/2023, 023 Surgical History Surgery Date Site/Laterality Comments THYROIDECTOMY [...] Relation Name Comments Cancer Brother 1 Hunter Sims Hyperlipidemia Brother 1 Hunter Sims Hypertension Brother 1 Hunter Sims Other Brother 1 Hunter Sims HTN< HLD; Hyperlipidemia Brother 2 Francisco Sims Hypertension Brother 2 Francisco Sims Prostate cancer Brother 2 Francisco Sims Family histo ry of malignant neoplasm of prostate - (Added by TW Conv) Hypertension Brother 3 Aaron Sims Heart attack Father Sylwia Bade Hyperlipidemia Father Sylwia Bade Hypertension Father Sylwia Bethany Other Father Sylwia Bade Myocardial infa rction; CAD started in 40's; Cause of : Myocardial infarction; CAD started in 40's Seizures Maternal Grandmother Brain Aneurysm Mother Marivel Sims Brain aneurys m; Cause of : Brain aneurysm Clotting disorder Mother Marivel Sims Hyperlipidemia Mother Marivel Sims Hypertension Mother Marivel Sims Memory loss Mother Marivel Sims Stroke Mother Marivel Sims Heart attack Paternal Grandfather Stanislaw Sims Myocard ial infarction; Cause of : Myocardial infarction Hyperlipidemia Sister Zaria Juárez Hypertension Sister Zaria Juárez Breast cancer Neg Hx Ovarian cancer Neg Hx Uterine cancer Neg Hx Relation Name Status Comments Brother 1 Hunter Sims Brother 2 Francisco Sims Brother 3 Aaron Sims Father Sylwia Sims (Age 75) Maternal Grandmother Mother Marivel Sims (Age 82) Paternal Grandfather Stanislaw Sims Sister Zaria Juárez Social History Tobacco Use [...] on file Legal Sex Female 3:59 AM EMPLOYEE SERVICE OFFICER Gender Identity Female 08/16/2020 2:35 PM CDT Sexual Orientation Straight 08/16/2020 2: 35 PM CDT Obstetrics History Para Term AB IAB SAB Ectopic Multiple Livin g Live Births 0 0 0 0 0 0 0 0 0 0 0 Comments Last Filed Vital Signs Vital Sign Reading Time Taken Comments Blood Pressure 122/70 01/16/2025 9:25 AM CDT Pulse 73 01/16/2025 9:25 AM CDT Temperature 36.2 C (97.1 F) 01/16/2025 9:25 AM CDT Respiratory Rate 16 01/16/2025 9:25 AM CDT Oxygen Saturation 99% 01/16/2025 9:25 AM CDT Inhaled Oxygen Concentration - - Weight 59.4 kg (131 lb) 01/16/2025 9:25 AM CDT Height 170.2 cm (5' 7) 11/19/2024 10:19 AM CDT Body Mass Index 20.52 11/19/2024 10:19 AM CDT Plan of Treatment Health Maintenance Due Date Last Done Comments Hepatitis B Screening 11/29/1978 DTaP/Tdap/Td Vaccine (1 - Tdap) 10/27/2016 7 Osteoporosis Screening-Bone Density Scan 10/08/2022 10/08/2020 Depression Screening 11/14/2024 11/15/2023, 11/05/19 23 Fall Risk Assessment 11/14/2024 11/15/2023 Covid-19 Vaccine ( season) 2025 02/05/2024, 07/12/2023, 02/06/2023, Additional history exists Influenza Vaccine (#1) 2025 , 02/14/2023, 02/23/2022, Additional history exists Breast Cancer Screening-Mammogram 07/03/2025 07/03/2024, 06/30/2022, 05/11/2021, Additional history exists Cervical Cancer Screening 08/01/20252024, 08/01/2024, 06/08/2022 Well Visit 65+ 08/01/2025 08/01/2024, 07/06, 11/04/2022, Additional history exists Colon Cancer Screening-Colonoscopy 07/01/20312021 Zoster Vaccine Completed 04/17/2023, 1212/2022, 11/23/2022 Hepatitis C Screening Completed 11/15/2023 Pneumococcal vaccine 65+ Completed 03/28/2024 Procedures Procedure Name Priority Date/Time Associated Diagnosis Comments HIGH RISK HPV DNA DETECTION WITH GENOTYPING Routine 08/01/2024 10:08 AM CDT Well woman exam SCREENING MAMMOGRAM BILATERAL W MANOHAR Schedule Routine, Read Routine (OP Routine) 07/03/2024 10:28 AM EMPLOYEE SERVICE OFFICER Encounter for screening mammogram for malignant neoplasm of breast HEPATITIS C ANTIBODY Routine 11/15/2023 11:13 AM CDT Elevated blood sugar Pure hypercholesterolemi a Essential hypertension Localization-relate d symptomatic epilepsy and epileptic syndromes with complex partial seizures, not intractable, without status epilepticus (HCC) Hypothyroidism, unspecified type Routine general medical examination at a health care facility Encounter for hepatitis C screening test for low risk patient DEXA AXIAL SKELETON BONE DENSITY 1 OR MORE SITES Schedule Routine, Read Routine (OP Routine) 10/08/2020 9:28 AM CDT Essential hypertension Pure hypercholesterolemi a Localization-relate d symptomatic epilepsy and epileptic syndromes with complex partial seizures, not intractable, without status epilepticus (HCC) Routine general medical examination at a health care facility Vitamin D deficiency Age-related osteoporosis without current pathological fracture from Last 3 Months or Most Recently Relevant to Health Maintenance Results * High Risk HPV DNA Detection with Genotyping (Molecular component) (08/01/2024 10:08 AM CDT) HPV HR 16 Not Detected Not Detected BJ Comment:Testing performed by : [facility], [address] [place] [id number] HPV HR 18 Not Detected Not Detected [facility] GAMING Comment:Testing performed by : [facility], [address] [place]., [address] HPV HR Non 16/18 Not Detected Not Detected [facility] Comment: Interpretive Data Nucleic acid amplification for detection of high-risk Human Papilloma virus (HPV) is performed by the Maty Nikita 6800 HPV test. This assay specifically detects HPV-16 and HPV-18 genotypes. The following HPV genotypes are detected as high-risk HPV: HPV-31, 33, 35, ,39, 45, 51, 52, 56, 58, 59, 66, and 68. This assay has been approved by the [place] Food and Drug Administration for detection of HPV in cervical specimens collected by a physician using an endocervical brush/spatula or cervical broom and placed in the ThinPrep Pap Test PreservCyt collection containers. The performance characteristics of this test have been verified by the [facility] Molecular Infectious Disease laboratory. Correlate with separately reported cytology results, as applicable. Interpretive data last revised 22 Testing performed by: [facility], [address] [place] [address]., [address] Endocervical 08/01/2024 10:0 8 AM CDT 08/02/2024 4:30 PM CDT Narrative [facility] - 08/05/2024 7:20 PM CDT Clinical history and diagnosis->screening Testing type->Screening Last menstrual period (date if known)->postmenopausal Shannon Paiz MD LAB BODY FLUIDS AND STOOL S ORDERABLES Final Result [facility] [address] [facility] Department [place] [address] [facility] * Screening Mammogram Bilateral W Manohar (07/03/2024 10:28 AM EMPLOYEE SERVICE OFFICER) Anatomical Region Laterality Modality Breast Bilateral Mammography Impressions 07/03/2024 12:46 PM EMPLOYEE SERVICE OFFICER BI-RADS ATLAS category (overall): 1 - Negative There is no mammographic evidence of malignancy. A 1 year screening mammogram is recommended. The patient has been or will be contacted. We recommend annual screening mammography for women at average risk of breast cancer beginning at age 40, based on guidelines of the [employer] (ACR Practice Parameter for the Performance of Screening and Diagnostic Mammography) and [employer]. For women with and elevated risk of breast cancer, please refer to the ACR Practice Parameter for specific screening recommendations. The patient will be entered into a reminder system with a target due date of 1 year for her next screening exam. Narrative 07/03/2024 12:46 PM EMPLOYEE SERVICE OFFICER Screening Mammogram Bilateral W Manohar: 07/03/24 The [...] IMG MAMMO PROCEDURES Marlene l Result * Hepatitis C antibody Blood (11/15/2023 11:13 AM CDT) Hep C Ab Non Reactive Non Reactive [facility] - 01 Comment: HCV antibody alone does not differentiate between previously resolved infection and active infection. Equivocal and Reactive HCV antibody results should be followed up with an HCV RNA test to support the diagnosis of active HCV infection. Blood 11/15/2023 11:1 3 AM CDT 11/15/2023 Narrative [facility] - 11/16/2023 5:09 AM CDT Performed at: 01 - [facility] [id number] Production Pattern Maker: Song Brooks PhD, Phone: [phone] Mac Slaughter MD LAB MICROBIOLOGY - GENERAL OR DERABLES Final Result [facility] - 01 * Dexa Axial Skeleton Bone Density 1 or 2 Site (10/08/2020 9:28 AM CDT) Anatomical Region Laterality Modality Body N/A Digital Radiogra phy 10/08/2020 11:2 8 AM CDT Impressions 10/08/2020 11:56 AM CDT 1. The bone mineral density of the lumbar spine is mildly decreased. 2. The bone mineral density of the left femoral neck is mildly decreased. 3. The bone mineral density of the left total hip is mildly decreased. 4. Overall, the above findings are diagnostic of low bone mass (osteopenia) by WHO criteria. 5. Based on the FRAX fracture risk model, the 10-year probability for major osteoporotic fracture is 8.8% and that for hip fracture is 1.3%. This 10-year fracture risk estimate was calculated using the risk factors noted in the history above, along with the femoral neck bone density. FRAX is intended to help guide treatment decisions in men over age 50 and postmenopausal women with low bone mass (osteopenia). The National Osteoporosis Foundation (NOF) recommends that FDA-approved medical therapies be considered in postmenopausal women and men age 50 years and older with osteoporosis and those with low bone mass whose 10-year fracture probability by FRAX is >= 20% for major osteoporotic fracture or >= 3% for hip fracture. However, all treatment decisions require clinical judgment and consideration of individual patient factors, including patient preferences, comorbidities, previous drug use, risk factors not captured in the FRAX model (e.g., frailty, falls, vitamin D deficiency, increased bone turnover, interval significant decline in bone density) and possible under- or overestimation of fracture risk by FRAX. General comments regarding interpretation of bone density measurements: A) In children, premenopausal woman and males under age 50 not at increased risk for fractures only Z-scores, not T-scores are used to indicate risk. A Z-score above -2.0 is defined as within the expected range for age and Z-score at or less than -2.0 is below the expected range for age. A Z-score below the expected range for age in a patient with recent fractures and/or chronic corticosteroid treatment is consistent with a diagnosis of osteoporosis. B) In post menopausal women and males over 50, comparison of the measured bone mineral density with the average value in young normal subjects (the T-score) has been found to be useful in assessing fracture risk. Fracture risk approximately doubles for each 1.0 standard deviation (SD) in individual's hip or spine bone mineral density is below the average value of young normal subjects. The World Health Organization (WHO) has defined T-scores of -1.0 to -2.5 as diagnostic of low bone mass (OSTEOPENIA), and T-scores of -2.5 or lower to be diagnostic of OSTEOPOROSIS, based on the site of lowest bone density. Note that there will be a change in reporting format and reference databases as patients move from the younger population (group A) to the older population (group B) The National Osteoporosis Foundation (www.nof.org) recommends adequate intake of calcium and vitamin D and regular weight-bearing exercise in all patients. They recommend pharmacologic treatment in postmenopausal women and men age 50 and older presenting with any of the followin) Osteoporosis, after appropriate evaluation to exclude secondary causes. 2) A hip or vertebral (clinical or radiographic) fracture, regardless of the bone density. 3) Low bone mass (Osteopenia) and one or more of: other prior fractures, secondary causes associated with high risk of fracture (such as glucocorticoid use or total immobilization), or computed high risk of fracture (10-yr probability of hip fracture >= 3% or a 10-yr probability of any major osteoporosis-related fracture >= 20% based on the [place].-adapted WHO algorithm), available at http://www.shef.ac.uk/FRAX). Dictated by: Aristides Byrne M.D. The radiology attending physician has personally reviewed this study, and had reviewed and/or edited this written report and agrees with it. Electronically signed by: Мария Kaiser M.D. Narrative 10/08/2020 11:56 AM CDT BONE DENSITOMETRY OF THE SPINE AND HIP DATE OF STUDY: 10/08/2020 HISTORY: 59-year-old postmenopausal woman with menopause at the age of 49, presenting with loss of height and osteopenia. She is being treated with calcium and vitamin D. Evaluate bone mineral density. Additional risk factors for fracture: none. FINDINGS (SPINE): The bone mineral density of L1-L4 was assessed by dual-energy x-ray absorptiometry. The average bone mineral density within this region is 0.847 gm/sq-cm. This is 0.4 standard deviations below the mean of the average bone mineral density for age- and gender-matched subjects (the Z-score). It is 1.8 standard deviations below the mean peak bone mineral density in young adults (the T-score). FINDINGS (FEMORAL NECK): The bone mineral density of the left femoral neck was assessed by dual-energy x-ray absorptiometry. The average bone mineral density within the femoral neck region is 0.618 gm/sq-cm. This is 0.8 standard deviations below the mean of the average bone mineral density for age- and gender-matched subjects (the Z-score). It is 2.1 standard deviations below the mean peak bone mineral density in young adults (the T-score). FINDINGS (TOTAL HIP): The bone mineral density of the left hip was assessed by dual-energy x-ray absorptiometry. The average bone mineral density within the total hip region is 0.720 gm/sq-cm. This is 0.8 standard deviations below the mean of the average bone mineral density for age- and gender-matched subjects (the Z-score). It is 1.8 standard deviations below the mean peak bone mineral density in young adults (the T-score). SUMMARY OF CURRENT RESULTS: Region BMD T-score Z-score AP Spine (L1-L4) 0.847 -1.8 -0.4 Femoral Neck (Left) 0.618 -2.1 -0.8 Total Hip (Left) 0.720 -1.8 -0.8 Procedure Note Мария Kaiser MD - 10/08/2020 BONE DENSITOMETRY OF THE SPINE AND HIP DATE OF STUDY: 10/08/2020 HISTORY: 59-year-old postmenopausal woman with menopause at the age of 49, presenting with loss of height and osteopenia. She is being treated with calcium and vitamin D. Evaluate bone mineral density. Additional risk factors for fracture: none. FINDINGS (SPINE): The bone mineral density of L1-L4 was assessed by dual-energy x-ray absorptiometry. The average bone mineral density within this region is 0.847 gm/sq-cm. This is 0.4 standard deviations below the mean of the average bone mineral density for age- and gender-matched subjects (the Z-score). It is 1.8 standard deviations below the mean peak bone mineral density in young adults (the T-score). FINDINGS (FEMORAL NECK): The bone mineral density of the left femoral neck was assessed by dual-energy x-ray absorptiometry. The average bone mineral density within the femoral neck region is 0.618 gm/sq-cm. This is 0.8 standard deviations below the mean of the average bone mineral density for age- and gender-matched subjects (the Z-score). It is 2.1 standard deviations below the mean peak bone mineral density in young adults (the T-score). FINDINGS (TOTAL HIP): The bone mineral density of the left hip was assessed by dual-energy x-ray absorptiometry. The average bone mineral density within the total hip region is 0.720 gm/sq-cm. This is 0.8 standard deviations below the mean of the average bone mineral density for age- and gender-matched subjects (the Z-score). It is 1.8 standard deviations below the mean peak bone mineral density in young adults (the T-score). SUMMARY OF CURRENT RESULTS: Region BMD T-score Z-score AP Spine (L1-L4) 0.847 -1.8 -0.4 Femoral Neck (Left) 0.618 -2.1 -0.8 Total Hip (Left) 0.720 -1.8 -0.8 IMPRESSION: 1. The bone mineral density of the lumbar spine is mildly decreased. 2. The bone mineral density of the left femoral neck is mildly decreased. 3. The bone mineral density of the left total hip is mildly decreased. 4. Overall, the above findings are diagnostic of low bone mass (osteopenia) by WHO criteria. 5. Based on the FRAX fracture risk model, the 10-year probability for major osteoporotic fracture is 8.8% and that for hip fracture is 1.3%. This 10-year fracture risk estimate was calculated using the risk factors noted in the history above, along with the femoral neck bone density. FRAX is intended to help guide treatment decisions in men over age 50 and postmenopausal women with low bone mass (osteopenia). The National Osteoporosis Foundation (NOF) recommends that FDA-approved medical therapies be considered in postmenopausal women and men age 50 years and older with osteoporosis and those with low bone mass whose 10-year fracture probability by FRAX is >= 20% for major osteoporotic fracture or >= 3% for hip fracture. However, all treatment decisions require clinical judgment and consideration of individual patient factors, including patient preferences, comorbidities, previous drug use, risk factors not captured in the FRAX model (e.g., frailty, falls, vitamin D deficiency, increased bone turnover, interval significant decline in bone density) and possible under- or overestimation of fracture risk by FRAX. General comments regarding interpretation of bone density measurements: A) In children, premenopausal woman and males under age 50 not at increased risk for fractures only Z-scores, not T-scores are used to indicate risk. A Z-score above -2.0 is defined as within the expected range for age and Z-score at or less than -2.0 is below the expected range for age. A Z-score below the expected range for age in a patient with recent fractures and/or chronic corticosteroid treatment is consistent with a diagnosis of osteoporosis. B) In post menopausal women and males over 50, comparison of the measured bone mineral density with the average value in young normal subjects (the T-score) has been found to be useful in assessing fracture risk. Fracture risk approximately doubles for each 1.0 standard deviation (SD) in individual's hip or spine bone mineral density is below the average value of young normal subjects. The World Health Organization (WHO) has defined T-scores of -1.0 to -2.5 as diagnostic of low bone mass (OSTEOPENIA), and T-scores of -2.5 or lower to be diagnostic of OSTEOPOROSIS, based on the site of lowest bone density. Note that there will be a change in reporting format and reference databases as patients move from the younger population (group A) to the older population (group B) The National Osteoporosis Foundation (www.nof.org) recommends adequate intake of calcium and vitamin D and regular weight-bearing exercise in all patients. They recommend pharmacologic treatment in postmenopausal women and men age 50 and older presenting with any of the followin) Osteoporosis, after appropriate evaluation to exclude secondary causes. 2) A hip or vertebral (clinical or radiographic) fracture, regardless of the bone density. 3) Low bone mass (Osteopenia) and one or more of: other prior fractures, secondary causes associated with high risk of fracture (such as glucocorticoid use or total immobilization), or computed high risk of fracture (10-yr probability of hip fracture >= 3% or a 10-yr probability of any major osteoporosis-related fracture >= 20% based on the [place].-adapted WHO algorithm), available at http://www.shef.ac.uk/FRAX). Dictated by: Aristides Byrne M.D. The radiology attending physician has personally reviewed this study, and had reviewed and/or edited this written report and agrees with it. Electronically signed by: Мария Kaiser M.D. 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
--- OUTSIDE RECORDS SUMMARY | 2025-02-02 09:40 | XMS_ITS | Clinical Summary ---
Author Organization [facility] Address [address] [place] [address] Care Team Providers Care Dealer Account Manager Name Role Phone Unavailable Primary Care Provider Unavailabl e Source Comments [facility],non-owned Affiliates and Associated Physician Practices is amultiple site organization consisting of ambulatory clinics and hospital sitesin [place], [place], [place] and [place]. This disclosure is being madepursuant to the Care Everywhere program and may not contain all information available regarding this patient. Last updated 18.[facility] [employer] Social History Tobacco Use Types Packs/Day Years Used Date Smoking Tobacco: Never Assessed Comments Unknown Sex and Gender Information Value Date Recorded Sex Assigned at Not on file Legal Sex Female 11:31 AM REFRIGERATION MANAGER Gender Identity Not on file Sexual Orientation Not on file Plan of Treatment Health Maintenance Due Date Last Done Comments BONE DENSITY TESTING 1959 COLOGUARD (AGES 45-75) - COL ON CA SCREENING 1959 COLON MONITORING 1959 COLONOSCOPY - COLON CA SCREENING 1959 CT COLONOGRAPHY - COLON CA SCREENING 1959 Colorectal Cancer Screening 1959 FIT - COLON CA SCREENING 1959 FLEX SIG - COLON CA SCREENING 1959 LIPID TESTING 1959 MAMMOGRAM 1959 HIV SCREENING 11/29/1974 HEPATITIS C SCREENING 11/25/1977 DTAP/TDAP/TD VACCINES (1 - Tdap) 11/29/1978 PNEUMOCOCCAL VACCINE 50+ (1 of 1 - PCV) 11/29/2009 ZOSTER VACCINE (1 of 2) 11/29/2009 DEPRESSION SCREENING 05/08/2024 COVID-19 VACCINE ( - 2023-2 5 season) 2025 INFLUENZA VACCINE (#1) 2025 Respiratory Syncytial Virus (RSV) Vaccine Pt: or [...] on patient's age to complete this topic Insurance GABI
--- NOTE | 2025-02-02 09:43 | ECG_ITS ---
Test Date: 2025-02-02 09:50:18 Measurements Intervals [place] Rate: 66 P: 50 [place]: 195 QRS: 81 QRSD: 114 T: 49 QT: 440 QTc: 463 Interpretive Statements SINUS RHYTHM INCOMPLETE RIGHT BUNDLE BRANCH BLOCK [90+ ms QRS DURATION, TERMINAL R IN V1/V2, 40+ ms S IN I/aVL/V4/V5/V6] No previous ECG available for comparison Electronically Signed On 02-02-2025 10:18:25 CDT by Esdras Baltazar M.D.
[2025-02-02 10:04] LABS: Hematocrit 35.2 % (37.0-47.0); Hemoglobin 11.3 g/dL (12.0-15.0); Immature Granulocyte Percent A 0.5 % (0-0.5); Lymphocytes Absolute Auto 1.31 K/mm3 (0.9-3.2); Mean Corpuscular HGB Conc 32.1 g/dl (32-36); Mean Corpuscular Hemoglobin 32.5 pg (26-34); Mean Corpuscular Volume 101.1 fl (80-100); Nucleated Red Blood Cells Absolute Auto 0.000 K/mm3 (0.0-0.012); Nucleated Red Blood Cells Perc 0.0 % (0.0-0.2); Platelet Count Result 204 k/mm3 (150-375); Red Blood Count 3.48 M/mm3 (4.2-5.4); White Blood Count 4.2 K/mm3 (4.5-10.0)
--- NOTE | 2025-02-02 10:11 | ED.DIZZY ---
HPI - Dizziness General Chief Complaint: Dizziness Stated Complaint: dizziness Time Seen by Provider: 02/02/25 10:01 Mode of arrival: ambulatory Limitations: no limitations History of Present Illness HPI Narrative: This is a 64-year-old female with history of hypertension, epilepsy who presents to the ED for dizziness. Patient states that over the past 2 weeks, she is now had 3 episodes of upper head dizziness. She states she has only noticed that this happens after she eats. It is worse when moving her head. She has had some intermittent nausea but no vomiting. No recent illnesses. No changes in medications. She has been taking her lamotrigine and Keppra as prescribed. Related Data Home Medications ?Medication ?Instructions ?Recorded ?Confirmed ?Last Taken ?Type amlodipine 2.5 mg-benazepril 10 mg 1 cap PO DAILY 04/16/21 09/29/23 Unknown History capsule azelastine 205.5 mcg (0.15 %) 1 spray intranasal QHS PRN Nasal 04/16/21 09/29/23 Unknown History nasal spray Congestion cholecalciferol (vitamin D3) 25 25 mcg PO DAILY 04/16/21 09/29/23 Unknown History mcg (1,000 unit) capsule famotidine 10 mg tablet 20 mg PO DAILY 04/16/21 09/29/23 Unknown History fexofenadine 180 mg tablet 180 mg PO DAILY 04/16/21 09/29/23 Unknown History (Amy Allergy) guaifenesin 600 mg tablet, 600 mg PO DAILY 04/16/21 09/29/23 Unknown History extended release 12 hr (Mucinex) lamotrigine 200 mg tablet 200 mg PO BID 04/16/21 09/29/23 Unknown History levetiracetam 500 mg tablet 500 mg PO Q12H 04/16/21 09/29/23 07/01/21 05:00 History (Keppra) levothyroxine 100 mcg tablet 100 mcg PO DAILY 04/16/21 09/29/23 07/01/21 05:00 History (Synthroid) metoprolol tartrate 25 mg tablet 25 mg PO DAILY 04/16/21 09/29/23 07/01/21 05:00 History metronidazole 0.75 % topical cream 1 applic topical DAILY PRN Rosacia 04/16/21 09/29/23 Unknown History montelukast 10 mg tablet 10 mg PO DAILY 04/16/21 09/29/23 Unknown History multivitamin (Daily Multi-Vitamin 1 tablet PO DAILY 04/16/21 09/29/23 Unknown History tablet) vitamin B complex (B 1 tablet PO DAILY 04/16/21 09/29/23 Unknown History Complex-Vitamin B12 tablet) simvastatin 40 mg tablet 40 mg PO DAILY 06/17/21 09/29/23 Unknown History itraconazole 100 mg capsule 200 mg PO DAILY 09/29/23 09/29/23 Unknown History Allergies Allergy/AdvReac Type Severity Reaction Status Date / Time ciprofloxacin (From Cipro) Allergy Intermediate Unknown Verified 02/02/25 09:58 latex Allergy Mild RASH ON Verified 02/02/25 09:58 CONTACT cefuroxime Allergy Unknown Unknown Verified 02/02/25 09:58 Contrast Media Allergy Severe HEAD AND Uncoded 09/29/23 13:21 EARS SWELL/RASH Review of Systems Review of Systems: Gen.: Denies fevers or chills Eyes: Denies eye pain or visual change ENT: Denies congestion Respiratory: Denies shortness of breath or cough CV: Denies chest pain or palpitations GI: Denies abdominal pain nausea, emesis or diarrhea denies burning, urgency, frequency or hematuria Musculoskeletal: Denies back pain or muscle pain Neuro: Denies numbness, tingling, weakness or focal weakness Skin: Denies rash Except as documented, all other systems reviewed and negative [facility] Past Medical History Medical History GERD (gastroesophageal reflux disease) Rosacea Hypothyroidism SVT (supraventricular tachycardia) Ovarian cyst Post-menopausal Seizures Hyperlipidemia Seasonal allergies Hypertension Surgical History Surgical History H/O partial thyroidectomy [place] teeth removed Family History Family History Sibling Hypertension Malignant neoplasm of prostate Mother Patient's mother is Father Patient's father is Social History Social History Smoking status: Never smoker Alcohol intake: never Substance use: never Living arrangements: with family Spiritual care concerns: No Exam Narrative: APPEARANCE: No acute distress, nontoxic, resting in bed EYES: EOMI. PERRL. No nystagmus HEENT: Normocephalic, atraumatic, OMM RESPIRATORY: No respiratory distress Clear to auscultation bilaterally with no rhonchi wheezing or rales. CARDIOVASCULAR: Regular rate and rhythm without murmurs rubs or gallops. ABDOMINAL: Soft, nontender, nondistended, no rebound or guarding MUSCULOSKELETAL: Moves all extremities. No clubbing, cyanosis or edema. NEURO: Awake and alert. Following commands, speech normal, no focal deficits. NIHSS 0. SKIN:: Warm, dry. No rashes lesions or abrasions PSYCHIATRIC: Normal affect/mood, Course Vital Signs Vital signs: Vital Signs Temperature 97.6 F 02/02/25 09:44 Pulse Rate 70 02/02/25 09:44 Respiratory Rate 13 02/02/25 09:44 Blood Pressure 141/80 H 02/02/25 09:44 Pulse Oximetry 100 02/02/25 09:44 Oxygen Delivery Room Air 02/02/25 09:44 Temperature 97.6 F 02/02/25 09:44 Pulse Rate 65 02/02/25 14:24 Respiratory Rate 13 02/02/25 14:24 Blood Pressure 142/75 H 02/02/25 14:24 Pulse Oximetry 100 02/02/25 14:24 Oxygen Delivery Room Air 02/02/25 09:44 MDM - Dizziness MDM Narrative Medical decision making narrative: 64-year-old female who presented to the ED for dizziness and leg heaviness. On initial evaluation, patient was in mild distress, afebrile, hemodynamically stable. She had a nonfocal neuro exam. No nystagmus. Heart and lungs clear. Abdomen soft and nontender. She had a mild anemia at 11.3. CMP without significant abnormalities. UA clear. Chest x-ray showed no acute process. CT head showed no acute process. CTA head/neck showed no acute process and no evidence of severe stenosis. Patient was given meclizine with no improvement of her symptoms. She was initially able walk but was unable to transfer from CT bed to x-ray due to her dizziness/lightheadedness. She was refusing Valium at this time. It is possible the patient is having a posterior circulation stroke so she will be admitted for further evaluation and for MRI. Case was discussed with hospitalist who will admit the patient. Differential Diagnosis Differential diagnosis: Likely benign paroxysmal positional vertigo, vertebral basilar insufficiency, cerebrovascular accident and transient cerebral ischemia Medical Records Attestation: I reviewed the patient's medical records. Lab Data Attestation: I reviewed the patient's lab results. 02/02/25 09:55 02/02/25 09:55 Labs: Lab Results 02/02/25 02/02/25 Range/Units 09:55 11:24 WBC 4.2 L (4.5-10.0) K/mm3 RBC 3.48 L (4.2-5.4) M/mm3 Hgb 11.3 L (12.0-15.0) g/dL Hct 35.2 L (37.0-47.0) % MCV 101.1 H (80-100) fl MCH 32.5 (26-34) pg MCHC 32.1 (32-36) g/dl RDW 12.1 (11.5-14.5) % Plt Count 204 (150-375) k/mm3 MPV 9.3 (7.4-10.4) fl Immature Gran % (Auto) 0.5 (0-0.5) % Neut % (Auto) 53.0 (45.5-73.1) % Lymph % (Auto) 30.9 (18.3-44.2) % Hand % (Auto) 13.0 H (2.6-8.5) % Eos % (Auto) 2.1 (0-4.4) % Baso % (Auto) 0.5 (0.2-1.2) % Lymph # (Auto) 1.31 (0.9-3.2) K/mm3 Hand # (Auto) 0.6 (0.1-0.6) K/mm3 Eos # (Auto) 0.1 (0-0.3) K/mm3 Baso # (Auto) 0.0 (0.0-0.1) K/mm3 Abs Immat Gran (auto) 0.02 (0.00-0.031) K/mm3 Absolute Neuts (auto) 2.3 (1.3-6.7) K/mm3 Absolute Nucleated RBC 0.000 (0.0-0.012) K/mm3 Nucleated RBC % 0.0 (0.0-0.2) % Sodium 137 (137-145) mmol/L Potassium 4.2 (3.4-5.0) mmol/L Chloride 101 (98-107) mmol/L Carbon Dioxide 28 (22-30) mmol/L Anion Gap 8 (4-12) mmol/L BUN 24 H (7-17) mg/dL Creatinine 0.93 (0.7-1.0) mg/dL Estim Creat Clear Calc 51 ml/min Estimated GFR > 60 (59 - ) Glucose 85 (65-110) mg/dL Calcium 9.2 (8.4-10.2) mg/dL Total Bilirubin 0.8 (0.2-1.3) mg/dL AST 31 (14-36) U/L ALT 22 (6-35) U/L Alkaline Phosphatase 90 (38-126) U/L Total Protein 7.3 (6.3-8.2) g/dL Albumin 4.5 (3.5-5.1) g/dL Urine Color Yellow (Yellow) Urine Appearance Clear (Clear) Urine pH 7.0 (5.0-9.0) Ur Specific [place] 1.006 (1.001-1.035) Urine Protein Negative (Negative) mg/dL Urine Glucose (UA) Negative (Negative) mg/dL Urine Ketones Negative (Negative) mg/dL Ur Blood (Man) Negative (Negative) Urine Nitrate Negative (Negative) Urine Bilirubin Negative (Negative) Urine Urobilinogen 0.2 (<2.0) mg/dL Leukocyte Esterase Rfl Trace H (Negative) POLLY/UL Urine RBC 0-2 (0-2) /hpf Urine WBC 0-5 (0-3) /hpf Ur Squamous Epith Cells None seen (Few) /hpf Urine Bacteria None seen /hpf Urine Casts 0-2 Imaging Data Attestation: I personally reviewed and interpreted this imaging study as follows: (I reviewed the radiologist's interpretations) Radiologist's impression: Impressions Head CT 02/02/25 11:06 IMPRESSION: 1. No acute intracranial findings. Chest X-Ray 02/02/25 11:22 IMPRESSION: 1. No acute cardiopulmonary findings. Head/Neck CTA 02/02/25 12:42 IMPRESSION: CTA NECK: 1. No acute findings. CTA HEAD: 1. No acute findings. ECG Data EKG #1: Attestation: I personally reviewed and interpreted this ECG as follows: ECG completion date: 02/02/25 ECG completion time: 09:50 Interpretation: Normal sinus rhythm rate of 66, normal axis, incomplete right bundle-branch block, no acute ST or T-wave changes. No prior immediately available for review Discharge Plan Discharge Clinical Impression: Dizziness Patient Disposition: Still a Patient Condition: Stable
--- OUTSIDE RECORDS SUMMARY | 2025-02-02 10:15 | XMS_ITS | Encounter Summary ---
Author Organization [facility] Healthcare Address [address] [place] [address] Care Team Providers Care Last Repairer Helper Name Role Phone Mac Slaughter MD Primary Care Provider [phone] Reason for Referral * Neurology (Routine) - Closed Specialty Diagnoses / Procedures Referred By Contac t Referred To Contact Neurology Diagnoses Numbness and tingling of upper extremity Procedures EMG/NCV -Please select the performing region: [facility] (All Locations); Procedure performed at: [facility] EMG Lab; Clinical Summary: numbness and tingling in the upper extremities; Reason for referral or diagnostic question: numbness and... Mac Slaughter MD Phone: tel: fax: [facility] Medicine Neurological Testing [address] [place] [address] Phone: tel: fax: Referral ID Status Reason Start Date Expiration Date Visits Re quested Visits Authorized [id number] Closed 05/16/2019 11/24/2020 1 1 ENTIVE MAINTENANCE ENGINEER Encounter Details Date Type Department Care Team (Late st Contact Info) Description 05/16/2019 Orders Only Internal Medicine Mac Slaughter MD [address] [place], [place] [id number] Numbness and tingling of upper extremity (Primary Dx) Social History Tobacco Use Types Packs/Day Years Used Date Smoking Tobacco: Never Smokeless Tobacco: Never Alcohol Use Standard Drinks/Week Comments No 0 (1 standard drink = 0.6 oz pur e alcohol) Comments Unknown Sex and Gender Information Value Date Recorded Sex Assigned at Not on file Legal Sex Female 3:59 AM PREVENTIVE MAINTENANCE ENGINEER Gender Identity Female 08/16/2020 2:35 PM CDT Sexual Orientation Straight 08/16/2020 2: 35 PM CDT documented as of this encounter Progress Notes * Sana Thomason - 05/16/2019 1:21 PM CST ncs documented in this encounter Plan of Treatment Not on file documented as of this encounter Results * EMG/NCV (06/03/2019 2:30 PM PREVENTIVE MAINTENANCE ENGINEER) Anatomical Region Laterality Modality Other Narrative 06/03/2019 2:30 PM PREVENTIVE MAINTENANCE ENGINEER Kaci Smith MD 06/04/2019 9:29 AM EMG/NCV -Please select the performing region: [facility] (All Locations); Procedure performed at: [facility] EMG Lab; Clinical Summary: numbness and tingling in the upper extremities; Reason for referral or diagnostic question: numbness and... Date/Time: 06/04/2019 9:27 AM Performed by: Kaci Smith MD Authorized by: Mac Slaughter MD us Mac Slaughter MD NEUROLOGY ORDERABLES Final Re sult documented in this encounter Visit Diagnoses Diagnosis Numbness and tingling of upper extremity- Primary Numbness and tingling of upper extremity documented in this encounter Care Teams Last Repairer Helper Relationship Specialty Start Date End Date Mac Slaughter MD PCP - General 11/14/17 documented as of this encounter
--- OUTSIDE RECORDS SUMMARY | 2025-02-02 10:15 | XMS_ITS | Clinical Summary ---
Author Organization [facility] Address [address] [place] [address] Care Team Providers Care Missile Tracking Technician Name Role Phone Mac Slaughter MD Primary Care Provider [phone] Allergies Active Allergy Reactions Criticality Noted Date [...] down If fails taper could continue Discussed supervisor yard risks of PPI use F/U with Dr. Segura PRN Degenerative disc disease, lumbar 04/13/2022 Assessment & Plan (04/13/2022 10:41 AM FINISHER CARD TENDER): Encouraged stretching/yoga and core building Recently rejoined [facility] Post-surgical hypothyroidism 10/12/2021 Assessment & Plan (05/22/2024 11:13 AM FINISHER CARD TENDER): Stable. Labs next visit Assessment & Plan (10/12/2021 11:07 AM CDT): Labs today Has noted hair loss, no other symptoms Seasonal allergic rhinitis due to pollen 020 Localization-related symptom atic epilepsy and epileptic syndromes with complex partial seizures, not intractable, without status epilepticus 08/03/2018 Precordial pain 06/05/2018 SVT (supraventricular tachycardia) 06/05/2018 Assessment & Plan (04/13/2022 10:42 AM FINISHER CARD TENDER): Follows with Cardiology Cervical radiculopathy 12/17/2015 Essential hypertension 08/26/2015 Overview (08/11/2016): Essential hypertension with goal blood pressure less than 140/90 Assessment & Plan (05/22/2024 11:13 AM FINISHER CARD TENDER): Stable and doing well. Assessment & Plan (10/12/2021 11:06 AM CDT): At goal Continue current meds Pure hypercholesterolemia 08/26/2015 Overview (08/11/2016): Pure hypercholesterolemia Assessment & Plan (07/15/2020 10:32 AM FINISHER CARD TENDER): Lipids reviewed today Has wellness exam October 2020 and would consider NMR lipid panel at that time Family history of coronary artery disease 2015 Overview (08/11/2016): Family history of premature CAD Epilepsy with partial complex seizures 6 Assessment & Plan (04/13/2022 10:42 AM FINISHER CARD TENDER): Follows with Neuro Seizure free since 2009 [...] 10/12/2021 Assessment & Plan (07/15/2020 10:32 AM FINISHER CARD TENDER): OTC NSAID's PRN Zanaflex (use, safety, s/e [...] Description 01/16/2025 9:30 AM CDT Office Visit [facility] at [address] [address] Elsa Lay NP Acute non-recurrent pansinusitis (Primary Dx) 12/05/2024 9:45 AM CDT Office Visit [facility] at [address] [address] Keena Phillips, VALENTÍN Infected insect bite of buttock, initial encounter (Primary Dx) 11/19/2024 11:00 AM CDT Office Visit [facility] Epilepsy [address] [place] [address] [place] [address] Edgar Clark MD PhD Localization-related symptomatic epilepsy [...] on file Legal Sex Female 3:59 AM FINISHER CARD TENDER Gender Identity Female 08/16/2020 2:35 PM CDT [...] Read Routine (OP Routine) 07/03/2024 10:28 AM FINISHER CARD TENDER Encounter for screening mammogram for malignant neoplasm [...] Not Detected BJ Comment:Testing performed by : [facility], [address] [place]., [address] HPV HR 18 Not Detected Not Detected [facility] GAMING Comment:Testing performed by : [facility], [address] [place]., [address] HPV HR Non 16/18 Not Detected Not [...] this test have been verified by the [facility] Molecular Infectious Disease laboratory. Correlate with separately reported cytology results, as applicable. Interpretive data last revised 22 Testing performed by: [facility], [address] [place] [address]., [id number] Endocervical 08/01/2024 10:0 8 AM CDT 08/02/2024 4:30 PM CDT Narrative [facility] - 08/05/2024 7:20 PM CDT Clinical history and diagnosis->screening Testing type->Screening Last menstrual period (date if known)->postmenopausal Shannon Paiz MD LAB BODY FLUIDS AND STOOL S ORDERABLES Final Result [facility] [address] [facility] [place] [address] [facility] * Screening Mammogram Bilateral W Manohar (07/03/2024 10:28 AM FINISHER CARD TENDER) Anatomical Region Laterality Modality Breast Bilateral Mammography Impressions 07/03/2024 12:46 PM FINISHER CARD TENDER BI-RADS ATLAS category (overall): 1 - Negative There is no mammographic evidence of malignancy. A 1 year screening mammogram is recommended. The patient has been or will be contacted. We recommend annual screening mammography for women at average risk of breast cancer beginning at age 40, based on guidelines of the [employer] (ACR Practice Parameter for the Performance of Screening and Diagnostic Mammography) and [employer]. For women with and elevated risk of breast cancer, please refer to the ACR Practice Parameter for specific screening recommendations. The patient will be entered into a reminder system with a target due date of 1 year for her next screening exam. Narrative 07/03/2024 12:46 PM FINISHER CARD TENDER Screening Mammogram Bilateral W Manohar: 07/03/24 The [...] 5:09 AM CDT Performed at: 01 - [facility] [id number] Purchasing Manager/Sales: Song Brooks PhD, Phone: [phone] Mac Slaughter MD LAB MICROBIOLOGY - GENERAL OR DERABLES Final Result [facility] * Dexa Axial Skeleton [...] to Health Maintenance Insurance BLUE [employer] [facility] [employer] [facility] [employer] [facility] [facility] [employer] Care Teams Missile Tracking Technician Relationship Specialty Start Date End Date Mac Slaughter MD PCP - General 11/14/17
--- OUTSIDE RECORDS SUMMARY | 2025-02-02 10:15 | XMS_ITS | Encounter Summary ---
Author Organization [facility] Address [address] [place] [address] Care Team Providers Care Counseling Services Manager Name Role Phone Unavailable Primary Care Provider Unavailabl e Encounter Details Date Type Department Care Team (Late st Contact Info) Description 06/24/2021 Lab Requisition [facility] [address] [place] [address] Jesus Hurst Jr., MD [address] [place] [address] Social History Tobacco Use Types Packs/Day Years Used Date Smoking Tobacco: Never Assessed Comments Unknown Sex and Gender Information Value Date Recorded Sex Assigned at Not on file Legal Sex Female 11:31 AM PROGRAM DEVELOPER Gender Identity Not on file Sexual Orientation Not on file documented as of this encounter Plan of Treatment Not on file documented as of this encounter Procedures Procedure Name Priority Date/Time Associated Diagnosis Comments DERMATOPATHOLOGY Routine 06/23/2021 12:0 0 AM PROGRAM DEVELOPER documented in this encounter Results * DERMATOPATHOLOGY (06/23/2021 12:00 AM PROGRAM DEVELOPER) Case Report Dermatopathology Report Case: [id number] Authorizing Provider: Jesus Hurst Jr., MD Collected: 06/23/2021 12:00 AM Ordering Location: [facility] Received: 06/24/2021 11:46 AM Pathologist: Doyle Patricio MD Specimen: Skin, right chin 2 4:31 PM PROGRAM DEVELOPER DERMATOPATHOLOGY LABORATORY Final Diagnosis Specimen A. SKIN, right chin: BASAL CELL CARCINOMA, NODULAR TYPE (C44.319) 2 4:31 PM PROGRAM DEVELOPER DERMATOPATHOLOGY LABORATORY at 1631 PROGRAM DEVELOPER Clinical History Basal cell carcinoma. 2 4:31 PM [facility]ER[facility] Gross Description Specimen A: Received is one formalin filled container labeled with the patient's name and designated right chin. The specimen consists of a shave biopsy measuring 4x4x1 mm. Jar 0. 2 4:31 PM [facility] DERMAT[facility]ATH[facility]Y [facility]OR[facility]ORY Microscopic Description Specimen A. SKIN, right chin: Within the dermis there are aggregates of basaloid cells with a high nuclear to cytoplasmic ratio and peripheral palisading. 2 4:31 PM [facility] DERMATOP[facility]ORATORY Disclaimer An external and internal positive and negative controls are appropriate for the histochemical, immunohistochemical and immunofluorescence stain(s) in this case (if any), except where stated explicitly. The performance characteristics of the stain(s) cited in this report were developed and its performance characteristic determined by the Dermatopathology Laboratory at [facility], directed by Dr. Preston Patricio. These tests need not be, and therefore are not, approved by the [place] Food and Drug Administration. The tests are used for clinical purposes. Billing Codes Specimen Charges Stain Charges 80754 1 2 4:31 PM PROGRAM DEVELOPER DERMATOPATHOLOGY LABORATORY Embedded Images 2 4:31 PM [facility] Pathology/Cytolog y TISSUE SPECIMEN FROM SKIN / Unknown 06/23/2021 06/24/2021 11:46 AM PROGRAM DEVELOPER Jesus Hurst Jr., MD LAB - PATHOLOGY/CYTOLOG Y ORDERABLES Final Result DERMATOPATHOLOGY LABORATORY [facility] - Department of Dermatology [address] [place] [address], [facility] [phone] documented in this encounter Visit Diagnoses Not on filedocumented in this encounter
--- OUTSIDE RECORDS SUMMARY | 2025-02-02 10:15 | XMS_ITS | Clinical Summary ---
Author Organization [facility] Address [address] [place] [address] Care Team Providers Care Programming Intern Name Role Phone Unavailable Primary Care Provider Unavailabl e Source Comments [facility],non-owned Affiliates and Associated Physician Practices is amultiple site organization consisting of ambulatory clinics and hospital sitesin [place], [place], [place] and [place]. This disclosure is being madepursuant to the Care Everywhere program and may not contain all information available regarding this patient. Last updated 18.[facility] Social History Tobacco Use Types Packs/Day Years Used Date Smoking Tobacco: Never Assessed Comments Unknown Sex and Gender Information Value Date Recorded Sex Assigned at Not on file Legal Sex Female 11:31 AM BLEACH MIXER Gender Identity Not on file Sexual Orientation [...] age to complete this topic Insurance [facility] Address: [facility] [id number] [place] [address]
[2025-02-02 10:23] LABS: Alanine Aminotransferase 22 U/L (6-35); Albumin Level 4.5 g/dL (3.5-5.1); Alkaline Phosphatase 90 U/L (38-126); Anion Gap 8 mmol/L (4-12); Aspartate Amino Transferase 31 U/L (14-36); Bilirubin,Total 0.8 mg/dL (0.2-1.3); Blood Urea Nitrogen 24 mg/dL (7-17); Calcium 9.2 mg/dL (8.4-10.2); Carbon Dioxide 28 mmol/L (22-30); Chloride 101 mmol/L (98-107); Estimated CRCL calculation 51 ml/min; Estimated Glomerular Filt Rate > 60; Glucose 85 mg/dL (65-110); Potassium 4.2 mmol/L (3.4-5.0); Sodium 137 mmol/L (137-145); Total Protein 7.3 g/dL (6.3-8.2)
[2025-02-02] MEDS: SODIUM CHLORIDE 0.9% IV 1,000 ML 999 ML IV CONT (10:37)
[2025-02-02] MEDS: MECLIZINE HCL 25 MG TABLET PO (10:38)
[2025-02-02 11:36] LABS: Add Urine Microscopic? YES; Appearance Urine Clear (Clear); Glucose Urine UA Negative (Negative); Leukocyte Esterase Ur Trace LEU/UL (Negative); Nitrate Urine Negative (Negative); Non Pathogenic Casts 0-2; Specific Grav Ur 1.006 (1.001-1.035)
--- NOTE | 2025-02-02 12:51 | PC.NURSE ---
Patient ambulated to the restroom with steady gate
--- NOTE | 2025-02-02 13:14 | PM.IMHP ---
H&P: HPI History of Present Illness Date/Time: 02/02/25 18:10 Chief Complaint: Dizziness Narrative: 64 y/o F with PMH of seizures, hyperlipidemia, thyroid dysfunction, and hypertension presents here with dizziness. The patient presents here on 02/02 from home for further evaluation of dizziness. She reports she has had 3 intermittent episodes over the past 2 weeks with most recent this morning. Most recent episode started at 9:00 a.m. this morning with last known well at 9-10 p.m. yesterday (02/01). She describes the dizziness as if her surroundings were tilting, stronger than her previous, accompanied by double vision and a tightness to the top of her head. Tightness not painful, maybe some ache in her temples. No hx of migraines or complex migraines per the patient. Dizziness has been precipitated by eating and worsens with movement of her head this morning, she denies a history of diabetes. It is accompanied by intermittent nausea without vomiting and lower extremity weakness (symmetric per her assessment and more so from the knees up). She denies focal weakness, focal numbness, dysarthria, or dysphagia. She denies any recent changes to her medications and reports compliance with her Lamotrigine and Keppra. Last seizure around 1.5 years ago, small. Was on an antibiotic for a sinus infection around 2 weeks ago, had floaters and flashers in both eyes as well as frontal sinus pressure. Was evaluated by an youth program director - posterior vitriol detachment. With abx the vision changes improved. Now reporting the dizziness resolves, estimates it was around noon. Initial VS at presentation: 97.6? F, HR 70, RR 13, 141/80, and 100% on RA. ED workup showed: WBC 4.2, hemoglobin 11.3, no significant electrolyte derangements, creatinine 0.93 and GFR >60, glucose 85, UA showed trace leuk esterase otherwise unremarkable. Head CT showed no acute intracranial findings. CXR showed no acute cardiopulmonary findings. Head/neck CTA showed no acute findings. EKG showed sinus rhythm, rate 66, incomplete right bundle branch block. Review of Systems Review of Systems: All systems reviewed & are unremarkable except as noted in HPI and below PMFSH Past Medical History Medical History GERD (gastroesophageal reflux disease) Rosacea Hypothyroidism SVT (supraventricular tachycardia) Ovarian cyst Post-menopausal Seizures Hyperlipidemia Seasonal allergies Hypertension Surgical History Surgical History H/O partial thyroidectomy [place] teeth removed Family History Family History Sibling Hypertension Malignant neoplasm of prostate Mother Patient's mother is Father Patient's father is Social History Social History Smoking status: Never smoker Alcohol intake: never Substance use: never Lack of Transportation: No Lack of Food: Never True Current Housing: I Have Housing Concerned About Future Housing: No Difficulty Paying Gas/Electric Bills: No Difficulty Paying for Meds: No Currently Unemployed: No Education: Master's Degree or Higher Difficulty w/ Childcare or Family Care: No Living arrangements: with family Spiritual care concerns: No Meds Home Medications and Allergies Home Medications ?Medication ?Instructions ?Recorded ?Confirmed ?Type amlodipine 2.5 mg-benazepril 10 mg 1 cap PO DAILY 04/16/21 02/02/25 History capsule azelastine 205.5 mcg (0.15 %) 1 spray intranasal QHS PRN Nasal 04/16/21 02/02/25 History nasal spray Congestion cholecalciferol (vitamin D3) 25 25 mcg PO DAILY 04/16/21 02/02/25 History mcg (1,000 unit) capsule famotidine 10 mg tablet 20 mg PO DAILY 04/16/21 02/02/25 History fexofenadine 180 mg tablet 180 mg PO DAILY 04/16/21 02/02/25 History (Amy Allergy) guaifenesin 600 mg tablet, 600 mg PO DAILY 04/16/21 02/02/25 History extended release 12 hr (Mucinex) lamotrigine 200 mg tablet 200 mg PO BID 04/16/21 02/02/25 History levetiracetam 500 mg tablet 500 mg PO Q12H 04/16/21 02/02/25 History (Keppra) levothyroxine 100 mcg tablet 75 mcg PO DAILY 04/16/21 02/02/25 History (Synthroid) metoprolol tartrate 25 mg tablet 25 mg PO DAILY 04/16/21 02/02/25 History metronidazole 0.75 % topical cream 1 applic topical DAILY PRN Rosacia 04/16/21 02/02/25 History montelukast 10 mg tablet 10 mg PO DAILY 04/16/21 02/02/25 History multivitamin (Daily Multi-Vitamin 1 tablet PO DAILY 04/16/21 02/02/25 History tablet) vitamin B complex (B 1 tablet PO DAILY 04/16/21 02/02/25 History Complex-Vitamin B12 tablet) simvastatin 40 mg tablet 40 mg PO DAILY 06/17/21 02/02/25 History aspirin 81 mg capsule 81 mg PO DAILY #30 caps 01/29/22 02/02/25 Rx levothyroxine 75 mcg tablet 75 mcg PO DAILY 02/02/25 02/02/25 History (Levoxyl) terbinafine HCl 250 mg tablet 250 mg PO .1 week a month 02/02/25 02/02/25 History Allergies Allergy/AdvReac Type Severity Reaction Status Date / Time ciprofloxacin (From Cipro) Allergy Intermediate Dizziness Verified 02/02/25 16:25 cefuroxime Allergy Mild Vomiting Verified 02/02/25 16:25 latex Allergy Mild RASH ON Verified 02/02/25 16:24 CONTACT Contrast Media Allergy Severe HEAD AND Uncoded 09/29/23 13:21 EARS SWELL/RASH Vital Signs Vital Signs - 24 hr 02/02/25 09:44 02/02/25 12:00 Temperature 97.6 F Pulse Rate 70 62 Respiratory Rate 13 13 Blood Pressure 141/80 H 130/69 Pulse Oximetry 100 100 Oxygen Delivery Room Air Exam Const: General: comfortable and no acute distress Other: , female, nontoxic appearance HENMT: Face/Nose/Sinus: Normal nares present Mouth: Yes moist mucous membranes Eyes: General: appearance normal, both eyes and all related structures Sclera: sclerae normal Pupils: Equal, round and reactive pupils present EOM: EOMs intact bilaterally Resp: Effort & Inspection: normal respiratory effort Auscultation: clear to auscultation bilaterally Cardio: Rate: regular rate Rhythm: regular rhythm Other: S1-S2 present without murmur, rub, ectopy GI: Other: Abdomen soft, nondistended, nontender. Normoactive bowel sounds in all quadrants. Skin: General skin exam: normal color and no rashes or lesions noted Wounds: no wounds Neuro: Speech: normal speech Motor exam (neuro): 5/5 motor strength present throughout Sensory Exam: normal sensation Other: NIHSS 0, A&O x4, no nystagmus noted Extrem: General: normal to inspection Psych: Mental Status: mental status grossly normal Affect: normal affect Other: Good insight and judgment, pleasant H&P: Results Labs Labs: Short CBC 02/02/25 Range/Units 09:55 WBC 4.2 L (4.5-10.0) K/mm3 Hgb 11.3 L (12.0-15.0) g/dL Hct 35.2 L (37.0-47.0) % Plt Count 204 (150-375) k/mm3 BMP 02/02/25 09:55 Sodium 137 Potassium 4.2 Chloride 101 Carbon Dioxide 28 BUN 24 H Creatinine 0.93 Glucose 85 Calcium 9.2 Liver Function 02/02/25 Range/Units 09:55 Total Bilirubin 0.8 (0.2-1.3) mg/dL AST 31 (14-36) U/L ALT 22 (6-35) U/L Alkaline Phosphatase 90 (38-126) U/L Albumin 4.5 (3.5-5.1) g/dL Urine 02/02/25 Range/Units 11:24 Urine Color Yellow (Yellow) Urine Appearance Clear (Clear) Urine pH 7.0 (5.0-9.0) Ur Specific [place] 1.006 (1.001-1.035) Urine Protein Negative (Negative) mg/dL Urine Glucose (UA) Negative (Negative) mg/dL Assessment and Plan Assessment and plan (1) Dizziness: Code(s): R42 - Dizziness and giddiness Status: Acute Assessment and Plan: Intermittent dizziness and nausea without vomiting that has been intermittent for the past 2 weeks, estimates she has had 3 episodes. Most recent episode started at 9:00 a.m. this morning. No response to steroids or meclizine in the ED. No acute CVA shown on head CT or head/neck CTA done on 02/02. Dizziness has since resolved. Last known well at 9:00 p.m. to 10:00 p.m. on 01/14/2027. - admission for observation and telemetry - not candidate for thrombolytics due or thrombectomy as there was no LVO on imaging and NIHSS 0 - CXR: No acute cardiopulmonary findings. - neurology consulted - brain MRI w/wo ordered - echo w/Bubble ordered - neuro checks Q4 - monitor daily labs, check lipid panel, A1C, TSH - reporting dizziness is post-prandial, check glucose post-prandial >>106 - continue simvastatin and daily ASA, hold on initiation of Plavix until MRI results - consider 30 day event monitoring at discharge if abnormalities noted on telemetry, reported hx of SVT on metoprolol - meclizine prn - IV fluids: 1L bolus -> 150 mL/hr x1L, dizziness occurring while seated. low suspicion for orthostatic hypotension however will check (2) Seizures: Code(s): R56.9 - Unspecified convulsions Status: Chronic Assessment and Plan: - last seizure 1 and half years ago, described as small - continue Keppra and Lamotrigine (3) Hyperlipidemia: Qualifiers: Hyperlipidemia type: unspecified Qualified Code(s): E78.5 - Hyperlipidemia, unspecified Code(s): E78.5 - Hyperlipidemia, unspecified Status: Chronic Assessment and Plan: - continue statin, update lipid panel (4) Hypertension: Qualifiers: Hypertension type: primary hypertension Qualified Code(s): I10 - Essential (primary) hypertension Code(s): I10 - Essential (primary) hypertension Status: Chronic Assessment and Plan: - chronic, currently 130/69 and stable - continue home medications: Metoprolol, amlodipine-benazepril - monitor Plan Diet: Heart healthy GI Prophylaxis: N/a DVT Prophylaxis: SCDs IV fluids: 1L bolus -> 150 mL/hr x1L Lines/Tubes: Peripheral IV Code Status: Full code Quality VTE Prophylaxis VTE prophylaxis: mechanical ordered Hospitalist [facility] Advance Care Plan I have confirmed that the patient's Advanced Care Plan is present, code status is documented, or surrogate decision maker is listed in patient medical record.: Yes Medication Reconciliation I have utilized all available resources to obtain, update and review the patients current medications (includes all prescriptions, OTC, herbals, cannabis, and nutritional supplements).: Yes
--- NOTE | 2025-02-02 15:46 | ADMGEN ---
This patient, Madyson Sims, was admitted to [address] [facility] Surg Room 314-02. Patient/family oriented to hospital policies and general routines including ID bracelet, bed and alarms, visiting hours, pain management, procedures, bathroom and other care routines, personal items, smoking policy, room service/diet, and visiting hours. Information on how to activate the Rapid Response Team has been discussed. Patient/Family are encouraged to report perceived risks to care and to ask questions if they do not understand what they are told or what they should do.
[2025-02-02] MEDS: LACTATED RINGERS 1,000 ML 150 ML IV CONT (16:56)
[2025-02-02] MEDS: SIMVASTATIN 20 MG TABLET 40 MG PO (22:06)
[2025-02-03] VITALS (11 sets, daily range): BP systolic 111–126; BP diastolic 53–62; PULSE 69–84; RESP 14–18; TEMP 35.9–36.9; O2SAT 90–100
--- NOTE | 2025-02-03 | ECHO_ITS ---
Patient Info Name: Madyson Sims Age: 64 years : 1960 Gender: Female Ht: 67 in Wt: 134 lbs BSA: 1.69 m2 HR: 74 bpm BP: 122 / 60 mmHg Technical Quality: Good Exam Date: 02/03/2025 2:04 PM Patient Status: I Admit Date: 02/02/2025 Exam Type: CA echo dop bubble study w con Complete two-dimensional, color flow and Doppler transthoracic echocardiogram is performed with agitated saline. Staff Referring Physician: Kenna Dutton Systems Developer: Paras Alfaro III Attending Provider: Kenroy Thompson MD Contrast/Agitated Saline Contrast/Ag. Saline: Agitated Saline Amount: 12.00 ml Administered By: Paras Alfaro III Existing IV Access: Yes IV Access Condition: patent with no signs of infiltration Summary 1. Left ventricular systolic function is normal, estimated at 55-60. 2. The left ventricular diastolic function is normal. 3. Right ventricular chamber dimension is mildly enlarged. 4. Right ventricular systolic function is normal. 5. Intact interatrial septum visualized by agitated saline imaging. 6. There is trace mitral valve regurgitation. 7. There is mild tricuspid valve regurgitation. 8. No pulmonary hypertension, estimated pulmonary arterial systolic pressure is 32 mmHg. Left Ventricle Left ventricular chamber dimension is normal. Left ventricular systolic function is normal, estimated at 55-60. There is no increased left ventricular wall thickness. Left ventricular septal wall motion is normal. The left ventricular diastolic function is normal. Right Ventricle Right ventricular chamber dimension is mildly enlarged. Right ventricular systolic function is normal. Left Atria Left atrial chamber dimension is normal. Right Atria Right atrial chamber dimension is normal. Atrial Septum Intact interatrial septum visualized by agitated saline imaging. Aortic Valve The aortic valve is trileaflet. There is mild aortic valve sclerosis. There is no aortic valve stenosis. There is no aortic valve regurgitation. Pulmonic Valve The pulmonic valve is normal. There is no pulmonic valve stenosis. There is no pulmonic regurgitation. Mitral Valve The mitral valve has normal leaflets. There is no mitral valve stenosis. There is trace mitral valve regurgitation. Tricuspid Valve The tricuspid valve leaflets are normal. There is no significant tricuspid valve stenosis. There is mild tricuspid valve regurgitation. No pulmonary hypertension, estimated pulmonary arterial systolic pressure is 32 mmHg. Pericardium/Pleural The pericardium appears normal. There is no pericardial effusion. Inferior Vena Cava Dilated inferior vena cava with >50% collapse upon inspiration consistent with elevated right atrial pressure, 10 mmHg. Aorta The aortic root size at the sinus of Valsalva is normal. The prox ascending aorta size is normal. Left Ventricular Outflow Tract Name Value Normal LVOT 2D LVOT Diameter 2.1 cm LVOT Doppler LVOT Peak Velocity 96 cm/s LVOT Peak Gradient 4 mmHg LVOT Mean Gradient 2 mmHg LVOT VTI 23 cm LVOT VTI/AV VTI Ratio 0.7 LVOT Stroke Volume 81 ml Pulmonic Valve Name Value Normal PV Doppler PV Peak Velocity 77 cm/s PV Peak Gradient 2 mmHg PV Mean Gradient 2 mmHg Mitral Valve Name Value Normal MV Doppler MV Peak Gradient 8 mmHg MV Mean Gradient 3 mmHg MV Area (Cont Eq VTI) 2.9 cm2 MV Diastolic Function MV E Peak Velocity 116 cm/s MV A Peak Velocity 76 cm/s MV E/A 1.5 MV Decel Time (PW) 186 ms MV Annular TDI MV E/e' (Septal) 10.2 MV E/e' (Lateral) 9.4 MV E/e' (Average) 9.8 Tricuspid Valve Name Value Normal TV Regurgitation Doppler TR Peak Velocity 235 cm/s TR Peak Gradient 22 mmHg Estimated PAP/RSVP RA Pressure 10 mmHg <=5 PA Systolic Pressure 32 mmHg <36 RV Systolic Pressure 32 mmHg <36 TV Annular TDI TV Lateral Selina s' Velocity 16.3 cm/s >=9.5 Aortic Valve Name Value Normal AV Doppler AV Peak Velocity 125 cm/s AV Peak Gradient 6 mmHg AV Mean Gradient 4 mmHg AV VTI 32 cm AV Area (Cont Eq VTI) 2.6 cm2 >=3.0 AV Area (Cont Eq Daryl) 2.7 cm2 AV DI (Daryl) 0.77 AV Regurgitation 2D LVOT Area 3.5 cm2 Ventricles Name Value Normal LV Dimensions 2D/MM IVS Diastolic Thickness (2D) 0.7 cm 0.6-1.0 LVID Diastole (2D) 4.0 cm 3.8-5.2 LVIW Diastolic Thickness (2D) 0.6 cm 0.6-0.9 LVID Systole (2D) 2.9 cm 2.2-3.5 LVOT Diameter 2.1 cm LV Mass (2D Cubed) 70.73 g 67.00-162.00 LV Mass Index (2D Cubed) 42 g/m2 43-95 Relative Wall Thickness (2D) 0.32 <=0.42 LV Fractional Shortening/Ejection Fraction 2D/MM LV Fractional Shortening (2D) 27 % 27-45 LV EF (2D Teichholz) 54 % LV Diastolic Volume (4C MOD) 56 ml LV EF (4C MOD) 69 % LV Diastolic Volume (2C MOD) 56 ml LV EF (2C MOD) 68 % LV Diastolic Volume (BP MOD) 56 ml 46-106 LV Diastolic Volume Index (BP MOD) 33 ml/m2 29-61 LV Systolic Volume (BP MOD) 18 ml 14-42 LV Systolic Volume Index (BP MOD) 11 ml/m2 8-24 LV EF (BP MOD) 68 % 54-74 LV Diastolic Length (4C) 7.4 cm LV Systolic Length (4C) 5.7 cm LV Stroke Volume (4C MOD) 39 ml Atria Name Value Normal LA Dimensions LA Volume (4C A-L) 52 ml LA Volume (BP A-L) 47 ml RA Dimensions RA Systolic Major [place] Length (4C) 5.6 cm 2.2-2.8 RA Area (4C) 20.7 cm2 <=18.0 Report Signatures
[2025-02-03] MEDS: LEVOTHYROXINE SODIUM 75 MCG TABLET PO (05:40)
[2025-02-03 06:35] LABS: Hematocrit 32.8 % (37.0-47.0); Hemoglobin 10.8 g/dL (12.0-15.0); Immature Granulocyte Percent A 0.3 % (0-0.5); Lymphocytes Absolute Auto 1.65 K/mm3 (0.9-3.2); Mean Corpuscular HGB Conc 32.9 g/dl (32-36); Mean Corpuscular Hemoglobin 33.0 pg (26-34); Mean Corpuscular Volume 100.3 fl (80-100); Nucleated Red Blood Cells Absolute Auto 0.000 K/mm3 (0.0-0.012); Nucleated Red Blood Cells Perc 0.0 % (0.0-0.2); Platelet Count Result 206 k/mm3 (150-375); Red Blood Count 3.27 M/mm3 (4.2-5.4); White Blood Count 8.9 K/mm3 (4.5-10.0)
[2025-02-03 06:56] LABS: Hemoglobin A1C 5.2 % (<5.7)
[2025-02-03 07:22] LABS: Anion Gap 6 mmol/L (4-12); Blood Urea Nitrogen 24 mg/dL (7-17); Calcium 9.5 mg/dL (8.4-10.2); Carbon Dioxide 27 mmol/L (22-30); Chloride 102 mmol/L (98-107); Cholesterol 195 mg/dL (0-200); Estimated CRCL calculation 52 ml/min; Estimated Glomerular Filt Rate > 60; Glucose 91 mg/dL (65-110); HDL Direct 105 mg/dL; Potassium 4.2 mmol/L (3.4-5.0); Sodium 135 mmol/L (137-145); Triglycerides 49 mg/dL (<150)
[2025-02-03] MEDS: FAMOTIDINE 20 MG TABLET PO (08:24)
[2025-02-03] MEDS: LORATADINE 10 MG TABLET PO (08:24)
[2025-02-03] MEDS: MULTIVITAMINS THERAPEUTIC TAB (*BKC) 1 TABLET PO (08:25)
[2025-02-03] MEDS: METOPROLOL TARTRATE 25 MG TABLET PO (08:25)
[2025-02-03] MEDS: VITAMIN B COMPLEX CAPSULE 1 CAP PO (08:25)
[2025-02-03] MEDS: MONTELUKAST SODIUM 10 MG TABLET PO (08:25)
[2025-02-03] MEDS: guaiFENesin 12 HR 600 MG TABCR PO (08:25)
[2025-02-03] MEDS: CHOLECALCIFEROL (VITAMIN D3) 25 MCG (1,000 UNITS) TABLET PO (08:26)
--- NOTE | 2025-02-03 10:22 | P.PNIM_ITS ---
Progress Note: A&P Assessment and Plan (1) Dizziness: Code(s): R42 - Dizziness and giddiness Status: Acute Assessment and Plan: Intermittent dizziness and nausea without vomiting that has been intermittent for the past 2 weeks, estimates she has had 3 episodes. Most recent episode started at 9:00 a.m. this morning. No response to steroids or meclizine in the ED. No acute CVA shown on head CT or head/neck CTA done on 02/02. Dizziness has since resolved. Last known well at 9:00 p.m. to 10:00 p.m. on 01/14/2027. - admission for observation and telemetry - not candidate for thrombolytics due or thrombectomy as there was no LVO on imaging and NIHSS 0 - CXR: No acute cardiopulmonary findings. - neurology consulted - brain MRI w/wo ordered - echo w/Bubble ordered - neuro checks Q4 - monitor daily labs, check lipid panel, A1C, TSH - reporting dizziness is post-prandial, check glucose post-prandial >>106 - continue simvastatin and daily ASA, hold on initiation of Plavix until MRI results - consider 30 day event monitoring at discharge if abnormalities noted on telemetry, reported hx of SVT on metoprolol - meclizine prn - IV fluids: 1L bolus -> 150 mL/hr x1L, dizziness occurring while seated. low suspicion for orthostatic hypotension however will check pt ordered for vestibular rehab (2) Seizures: Code(s): R56.9 - Unspecified convulsions Status: Chronic Assessment and Plan: - last seizure 1 and half years ago, described as small - continue Keppra and Lamotrigine will check levels-ordered (3) Hyperlipidemia: Qualifiers: Hyperlipidemia type: unspecified Qualified Code(s): E78.5 - Hyperlipidemia, unspecified Code(s): E78.5 - Hyperlipidemia, unspecified Status: Chronic Assessment and Plan: - continue statin, update lipid panel (4) Hypertension: Qualifiers: Hypertension type: primary hypertension Qualified Code(s): I10 - Essential (primary) hypertension Code(s): I10 - Essential (primary) hypertension Status: Chronic Assessment and Plan: - chronic, currently 130/69 and stable - continue home medications: Metoprolol, amlodipine-benazepril - monitor Plan Diet: Heart healthy GI Prophylaxis: N/a DVT Prophylaxis: SCDs IV fluids: 1L bolus -> 150 mL/hr x1L Lines/Tubes: Peripheral IV Code Status: Full code Time Spent With Patient Time with patient: 25 - 35 minutes Subjective Date/time seen: 02/03/25 10:22 Interval history: ''64 y/o F with PMH of seizures, hyperlipidemia, thyroid dysfunction, and h ypertension presents here with dizziness. The patient presents here on 02/02 from home for further evaluation of dizziness. She reports she has had 3 intermittent episodes over the past 2 weeks with most recent this morning. Most recent episode started at 9:00 a.m. this morning with last known well at 9-10 p.m. yesterday (02/01). She describes the dizziness as if her surroundings were tilting, stronger than her previous, accompanied by double vision and a tightness to the top of her head. Tightness not painful, maybe some ache in her temples. No hx of migraines or complex migraines per the patient. Dizziness has been precipitated by eating and worsens with movement of her head this morning, she denies a history of diabetes. It is accompanied by intermittent nausea without vomiting and lower extremity weakness (symmetric per her assessment and more so from the knees up). She denies focal weakness, focal numbness, dysarthria, or dysphagia. She denies any recent changes to her medications and reports compliance with her Lamotrigine and Keppra. Last seizure around 1.5 years ago, small. Was on an antibiotic for a sinus infection around 2 weeks ago, had floaters and flashers i n both eyes as well as frontal sinus pressure. Was evaluated by an wheel press operator - posterior vitriol detachment. With abx the vision changes improved. Now reporting the dizziness resolves, estimates it was around noon. Initial VS at presentation: 97.6? F, HR 70, RR 13, 141/80, and 100% on RA. ED workup showed: WBC 4.2, hemoglobin 11.3, no significant electrolyte derangements, creatinine 0.93 and GFR >60, glucose 85, UA showed trace leuk esterase otherwise unremarkable. Head CT showed no acute intracranial findings. CXR showed no acute cardiopulmonary findings. Head/neck CTA showed no acute findings. EKG showed sinus rhythm, rate 66, incomplete right bundle branch block. 02/03 pt is seen and examined neurology consulted, brain MRI and ECHO pending. no headache, no vision change s Review of Systems Review of Systems: All systems reviewed & are unremarkable except as noted in HPI and below Exam Const: General: comfortable and no acute distress Other: , female, nontoxic appearance HENMT: Face/Nose/Sinus: Normal nares present Mouth: Yes moist mucous membr anes Eyes: General: appearance normal, both eyes and all related structures Sclera: sclerae normal Pupils: Equal, round and reactive pupils present EOM: EOMs intact bilaterally Resp: Effort & Inspection: normal respiratory effort Auscultation: clear to auscultation bilaterally Cardio: Rate: regular rate Rhythm: regular rhythm Other: S1-S2 present without murmur, rub, ectopy GI: Other: Abdomen soft, nondistended, nontender. Normoactive bowel sounds in all quadrants. Skin: General skin exam: normal color and no rashes or lesions noted Wounds: no wounds Neuro: Cranial nerves: Yes Equal, round and reactive pupils present Speech: normal speech Motor exam (neuro): 5/5 motor strength present throughout Sensory Exam: normal sensation Other: NIHSS 0, A&O x4, no nystagmus noted Extrem: General: normal to inspection Psych: Mental Status: mental status grossly normal Affect: normal affect Other: Good insight and judgment, pleasant Objective Data Vital Signs Vital Signs: Vital Signs - 24 hr 02/02/25 12:00 02/02/25 14:24 02/02/25 16:18 Temperature 97.2 F L Pulse Rate 62 65 69 Respiratory Rate 13 13 14 Blood Pressure 130/69 142/75 H 135/63 Pulse Oximetry 100 100 100 Oxygen Delivery 02/02/25 16:19 02/02/25 20:00 02/02/25 20:04 Temperature Pulse Rate 87 Respiratory Rate Blood Pressure Pulse Oximetry 96 Oxygen Delivery Room Air Room Air 02/02/25 20:36 02/02/25 23:15 02/03/25 00:02 Temperature 98.0 F Pulse Rate 77 81 82 Respiratory Rate 16 14 Blood Pressure 130/63 Pulse Oximetry 98 96 Oxygen Delivery 02/03/25 04:03 02/03/25 04:20 02/03/25 08:00 Temperature 98.4 F 97.6 F Pulse Rate 69 74 76 Respiratory Rate 14 18 Blood Pressure 122/60 111/57 L Pulse Oximetry 100 99 Oxygen Delivery 02/03/25 08:00 02/03/25 08:00 02/03/25 08:25 Temperature Pulse Rate 71 76 Respiratory Rate Blood Pressure Pulse Oximetry Oxygen Delivery Room Air Intake/Output Intake/Output: Intake & Output 01/31/25 02/01/25 02/02/25 02/03/25 23:59 23:59 23:59 23:59 Intake Total 1340 790 Balance 1340 790 Meds/Results Medications: Active Medications Generic Name Dose Route Start Last Admin Trade Name Freq PRN Reason Stop Dose Admin Acetaminophen 650 mg 02/02/25 13:27 Acetaminophen 325 Mg Tablet PO Q4H PRN Mild Pain (1-3) or Fever Amlodipine Besylate 2.5 mg 02/03/25 09:00 02/03/25 08:26 Amlodipine Besylate 2.5 Mg Tablet PO 2.5 mg DAILY BRITT Administration Azelastine HCl 1 spray 02/02/25 18:53 Azelastine Hcl Nasal 0.1% 137 Mcg/Spr 30 Ml Btl NASAL QHS PRN Nasal Congestion Bisacodyl 5 mg 02/02/25 13:27 Bisacodyl 5 Mg Tablet Ec PO DAILY PRN Constipation Famotidine 20 mg 02/03/25 09:00 02/03/25 08:24 Famotidine 20 Mg Tablet PO 20 mg DAILY BRITT Administration Guaifenesin 600 mg 02/03/25 09:00 02/03/25 08:25 Guaifenesin 12 Hr 600 Mg Tabcr PO 600 mg DAILY BRITT Administration Lamotrigine 200 mg 02/02/25 19:10 02/03/25 08:24 Lamotrigine 100 Mg Tablet PO 200 mg BID BRITT Administration Levetiracetam 500 mg 02/02/25 21:00 02/03/25 08:26 Levetiracetam 500 Mg Tablet PO 500 mg Q12H BRITT Administration Levothyroxine Sodium 75 mcg 02/03/25 06:30 02/03/25 05:40 Levothyroxine Sodium 75 Mcg Tablet PO 75 mcg DAILY@0630 BRITT Administration Lisinopril 10 mg 02/03/25 09:00 02/03/25 08:26 Lisinopril 10 Mg Tablet PO 10 mg DAILY BRITT Administration Loratadine 10 mg 02/03/25 09:00 02/03/25 08:24 Loratadine 10 Mg Tablet PO 10 mg QAM BRITT Administration Meclizine HCl 25 mg 02/02/25 13:22 Meclizine Hcl 25 Mg Tablet PO BID PRN Dizziness Metoprolol Tartrate 25 mg 02/03/25 09:00 02/03/25 08:25 Metoprolol Tartrate 25 Mg Tablet PO 25 mg DAILY BRITT Administration Montelukast Sodium 10 mg 02/03/25 09:00 02/03/25 08:25 Montelukast Sodium 10 Mg Tablet PO 10 mg DAILY BRITT Administration Multivitamins Therapeutic 1 tablet 02/03/25 09:00 02/03/25 08:25 Multivitamins Therapeutic Tab (*Bkc) PO 1 tablet DAILY BRITT Administration Ondansetron HCl 4 mg 02/02/25 13:27 Ondansetron Inj 4 Mg/2 Ml Vial IV PUSH Q6H PRN Nausea And Vomiting Perflutren Lipid Microsphere 0 ml 02/02/25 13:22 Perflutren Lipid Microspheres 1.5 Ml Vial Diluted To 10 Ml Total Volume IV PUSH 02/05/25 13:22 ONCE PRN adequate visualization Protocol Simvastatin 40 mg 02/02/25 21:35 02/02/25 22:06 Simvastatin 20 Mg Tablet PO 40 mg HS BRITT Administration Terbinafine HCl 250 mg 02/05/25 09:00 Terbinafine Hcl 250 Mg Tablet PO 02/11/25 09:01 DAILY BRITT Vitamin B Complex 1 cap 02/03/25 09:00 02/03/25 08:25 Vitamin B Complex Capsule PO 1 cap DAILY BRITT Administration Vitamin D 25 mcg 02/03/25 09:00 02/03/25 08:26 Cholecalciferol (Vitamin D3) 25 Mcg (1,000 Units) Tablet PO 25 mcg DAILY BRITT Administration Radiology Results: ITS Impressions Head CT 02/02/25 11:06 IMPRESSION: 1. No acute intracranial findings. Chest X-Ray 02/02/25 11:22 IMPRESSION: 1. No acute cardiopulmonary findings. Head/Neck CTA 02/02/25 12:42 IMPRESSION: CTA NECK: 1. No acute findings. CTA HEAD: 1. No acute findings. Labs Labs: Laboratory Results - last 24 hr 02/02/25 02/02/25 02/02/25 09:55 11:24 14:29 WBC RBC Hgb Hct MCV MCH MCHC RDW Plt Count MPV Immature Gran % (Auto) Neut % (Auto) Lymph % (Auto) [place] % (Auto) Eos % (Auto) Baso % (Auto) Lymph # (Auto) [place] # (Auto) Eos # (Auto) Baso # (Auto) Abs Immat Gran (auto) Absolute Neuts (auto) Absolute Nucleated RBC Nucleated RBC % Sodium 137 Potassium 4.2 Chloride 101 Carbon Dioxide 28 Anion Gap 8 BUN 24 H Creatinine 0.93 Estim Creat Clear Calc 51 Estimated GFR > 60 Glucose 85 POC Capillary Glucose 104 Hemoglobin A1c Calcium 9.2 Total Bilirubin 0.8 AST 31 ALT 22 Alkaline Phosphatase 90 Total Protein 7.3 Albumin 4.5 Triglycerides Cholesterol LDL Cholesterol Direct HDL Direct Urine Color Yellow Urine Appearance Clear Urine pH 7.0 Ur Specific [place] 1.006 Urine Protein Negative Urine Glucose (UA) Negative Urine Ketones Negative Ur Blood (Man) Negative Urine Nitrate Negative Urine Bilirubin Negative Urine Urobilinogen 0.2 Leukocyte Esterase Rfl Trace H Urine RBC 0-2 Urine WBC 0-5 Ur Squamous Epith Cells None seen Urine Bacteria None seen Urine Casts 0-2 02/03/25 06:05 WBC 8.9 RBC 3.27 L Hgb 10.8 L Hct 32.8 L MCV 100.3 H MCH 33.0 MCHC 32.9 RDW 12.0 Plt Count 206 MPV 9.6 Immature Gran % (Auto) 0.3 Neut % (Auto) 70.2 Lymph % (Auto) 18.6 [place] % (Auto) 10.5 H Eos % (Auto) 0.2 Baso % (Auto) 0.2 Lymph # (Auto) 1.65 [place] # (Auto) 0.9 H Eos # (Auto) 0.0 Baso # (Auto) 0.0 Abs Immat Gran (auto) 0.03 Absolute Neuts (auto) 6.2 Absolute Nucleated RBC 0.000 Nucleated RBC % 0.0 Sodium 135 L Potassium 4.2 Chloride 102 Carbon Dioxide 27 Anion Gap 6 BUN 24 H Creatinine 0.91 Estim Creat Clear Calc 52 Estimated GFR > 60 Glucose 91 POC Capillary Glucose Hemoglobin A1c 5.2 Calcium 9.5 Total Bilirubin AST ALT Alkaline Phosphatase Total Protein Albumin Triglycerides 49 Cholesterol 195 LDL Cholesterol Direct 54 HDL Direct 105 Urine Color Urine Appearance Urine pH Ur Specific [place] Urine Protein Urine Glucose (UA) Urine Ketones Ur Blood (Man) Urine Nitrate Urine Bilirubin Urine Urobilinogen Leukocyte Esterase Rfl Urine RBC Urine WBC Ur Squamous Epith Cells Urine Bacteria Urine Casts Quality VTE Prophylaxis VTE prophylaxis: mechanical ordered
--- NOTE | 2025-02-03 11:36 | WPDNEURCNPN ---
Assessment and Plan Assessment and plan (1) Dizziness: Code(s): R42 - Dizziness and giddiness Status: Acute Assessment and Plan: The patient has more prolonged spell yesterday although she has been having some spells for last [address] scan of brain and CT angiogram of the head and neck did not show any significant abnormality. Neurological examination also did not show any significant abnormal findings. Head thirst test was negative. No nystagmus seen. MRI of the brain is pending in addition to echocardiogram. There is no prior history of cerebrovascular disease or cardiac disease although she is on Zocor 40 mg a day her LDL was 54. (2) Seizures: Code(s): R56.9 - Unspecified convulsions Status: Chronic Assessment and Plan: seizures have been controlled and she had none for last 18 months or so. She follows of at [facility] epilepsy [facility] and has been on same medications as listed above. However we should follow up the blood level since anticonvulsant can sometimes be was for dizziness although it is less likely since he is not on high dose of any medications and she has not lost any weight nor any new medication has been added recently. (3) Hypertension: Qualifiers: Hypertension type: primary hypertension Qualified Code(s): I10 - Essential (primary) hypertension Code(s): I10 - Essential (primary) hypertension Status: Chronic (4) Hyperlipidemia: Qualifiers: Hyperlipidemia type: unspecified Qualified Code(s): E78.5 - Hyperlipidemia, unspecified Code(s): E78.5 - Hyperlipidemia, unspecified Status: Chronic Plan We should follow the results of MRI of the brain. If this does not show any abnormality, she may require vestibular therapy or ENT evaluation and I have given her information about it. Consult date: 02/03/25 HPI: Madyson Sims is a 64 year old female with history of seizure disorder presented to the hospital with the onset of dizziness. The episodes have been brief in the last 2 weeks however she had a more prolonged spell yesterday that led to the hospitalization. It last for a few hours. She did not have any fall but has a sense of rotation around her head. She has not been able to find if there is any particular movement that brings his own but she never had this problem in the past. There is no history of recent febrile illness or any trauma to the head. Any ringing in the ears or hearing loss. She has been followed up at the epilepsy clinic in [facility] for seizure disorder which started around age of 20. She is currently on the same medications that she has been on for quite some time which is Keppra 1000 mg of Lamictal 400 mg a day. Yesterday with dizziness he also has some nausea but no vomiting. No diplopia or weakness in upper lower limbs. She is able to walk independently. Patient lives with the . There is no history of alcohol drinking or smoking. There is no history of any significant concurrent medical problems. Review of Systems Review of Systems: All systems reviewed & are unremarkable except as noted in HPI and below PMFSH Past Medical History Medical History GERD (gastroesophageal reflux disease) Rosacea Hypothyroidism SVT (supraventricular tachycardia) Ovarian cyst Post-menopausal Seizures Hyperlipidemia Seasonal allergies Hypertension Surgical History Surgical History H/O partial thyroidectomy [place] teeth removed Family History Family History Sibling Hypertension Malignant neoplasm of prostate Mother Patient's mother is Father Patient's father is Social History Social History Smoking status: Never smoker Alcohol intake: never Substance use: never Lack of Transportation: No Lack of Food: Never True Current Housing: I Have Housing Concerned About Future Housing: No Difficulty Paying Gas/Electric Bills: No Difficulty Paying for Meds: No Currently Unemployed: No Education: Master's Degree or Higher Difficulty w/ Childcare or Family Care: No Living arrangements: with family Spiritual care concerns: No Meds Home Medications and Allergies Home Medications ?Medication ?Instructions ?Recorded ?Confirmed ?Type amlodipine 2.5 mg-benazepril 10 mg 1 cap PO DAILY 04/16/21 02/02/25 History capsule azelastine 205.5 mcg (0.15 %) 1 spray intranasal QHS PRN Nasal 04/16/21 02/02/25 History nasal spray Congestion cholecalciferol (vitamin D3) 25 25 mcg PO DAILY 04/16/21 02/02/25 History mcg (1,000 unit) capsule famotidine 10 mg tablet 20 mg PO DAILY 04/16/21 02/02/25 History fexofenadine 180 mg tablet 180 mg PO DAILY 04/16/21 02/02/25 History (Amy Allergy) guaifenesin 600 mg tablet, 600 mg PO DAILY 04/16/21 02/02/25 History extended release 12 hr (Mucinex) lamotrigine 200 mg tablet 200 mg PO BID 04/16/21 02/02/25 History levetiracetam 500 mg tablet 500 mg PO Q12H 04/16/21 02/02/25 History (Keppra) metoprolol tartrate 25 mg tablet 25 mg PO DAILY 04/16/21 02/02/25 History montelukast 10 mg tablet 10 mg PO HS 04/16/21 02/02/25 History multivitamin (Daily Multi-Vitamin 1 tablet PO DAILY 04/16/21 02/02/25 History tablet) vitamin B complex (B 1 tablet PO DAILY 04/16/21 02/02/25 History Complex-Vitamin B12 tablet) simvastatin 40 mg tablet 40 mg PO HS 06/17/21 02/02/25 History aspirin 81 mg capsule 81 mg PO DAILY #30 caps 01/29/22 02/02/25 Rx estradiol 10 mcg vaginal tablet 10 mcg vaginal .semiweekly 02/02/25 02/02/25 History levothyroxine 75 mcg tablet 75 mcg PO DAILY 02/02/25 02/02/25 History (Levoxyl) terbinafine HCl 250 mg tablet 250 mg PO .1 week a month 02/02/25 02/02/25 History Allergies Allergy/AdvReac Type Severity Reaction Status Date / Time ciprofloxacin (From Cipro) Allergy Intermediate Dizziness Verified 02/02/25 16:25 cefuroxime Allergy Mild Vomiting Verified 02/02/25 16:25 latex Allergy Mild RASH ON Verified 02/02/25 16:24 CONTACT Contrast Media Allergy Severe HEAD AND Uncoded 09/29/23 13:21 EARS SWELL/RASH Vital Signs Vital Signs - 24 hr 02/02/25 12:00 02/02/25 14:24 02/02/25 16:18 Temperature 97.2 F L Pulse Rate 62 65 69 Respiratory Rate 13 13 14 Blood Pressure 130/69 142/75 H 135/63 Pulse Oximetry 100 100 100 Oxygen Delivery 02/02/25 16:19 02/02/25 20:00 02/02/25 20:04 Temperature Pulse Rate 87 Respiratory Rate Blood Pressure Pulse Oximetry 96 Oxygen Delivery Room Air Room Air 02/02/25 20:36 02/02/25 23:15 02/03/25 00:02 Temperature 98.0 F Pulse Rate 77 81 82 Respiratory Rate 16 14 Blood Pressure 130/63 Pulse Oximetry 98 96 Oxygen Delivery 02/03/25 04:03 02/03/25 04:20 02/03/25 08:00 Temperature 98.4 F 97.6 F Pulse Rate 69 74 76 Respiratory Rate 14 18 Blood Pressure 122/60 111/57 L Pulse Oximetry 100 99 Oxygen Delivery 02/03/25 08:00 02/03/25 08:00 02/03/25 08:25 Temperature Pulse Rate 71 76 Respiratory Rate Blood Pressure Pulse Oximetry Oxygen Delivery Room Air Exam Narrative: deep tendon reflexes were present and symmetric. Const: General: cooperative, well developed and alert Orientation/consciousness: oriented to person, oriented to place and oriented to time HENMT: Head: atraumatic Mouth: Yes oropharynx normal Eyes: Alignment and Position: position normal Pupils: Equal, round and reactive pupils present EOM: EOMs intact bilaterally Neck: Neck: supple Other: No carotid bruit. Resp: Effort & Inspection: normal respiratory effort Cardio: Rate: regular rate Rhythm: regular rhythm Skin: General skin exam: normal color Neuro: Cranial nerves: Yes CN's II-XII intact bilaterally, Yes facial sensation intact/muscles of mastication intact, Yes Equal, round and reactive pupils present, Yes Bilaterally intact EOM present, Yes Nystagmus not present, Yes facial symmetry, Yes Midline tongue present, Yes Symmetric palate elevation present and Yes Ability to bilaterally elevate shoulders present Cognition (Neuro): normal cognition Speech: normal speech Gait exam (Neuro): Unable to assess gait Motor exam (neuro): 5/5 motor strength present throughout, Normal motor muscle tone present throughout and Motor abnormalities not present Sensory Exam: normal sensation Coordination: [id number] test normal ( Minimal tremor of the left hand on [id number] testing) and Normal rapid alternating movements of the distal upper extremity present (Neuro) Extrem: General: normal to inspection Psych: Mental Status: mental status grossly normal Affect: normal affect Results Labs 02/03/25 06:05 02/03/25 06:05 Labs: Short CBC 02/03/25 Range/Units 06:05 WBC 8.9 (4.5-10.0) K/mm3 Hgb 10.8 L (12.0-15.0) g/dL Hct 32.8 L (37.0-47.0) % Plt Count 206 (150-375) k/mm3 BMP 02/03/25 06:05 Sodium 135 L Potassium 4.2 Chloride 102 Carbon Dioxide 27 BUN 24 H Creatinine 0.91 Glucose 91 Calcium 9.5 Urine 02/02/25 Range/Units 11:24 Urine Color Yellow (Yellow) Urine Appearance Clear (Clear) Urine pH 7.0 (5.0-9.0) Ur Specific [place] 1.006 (1.001-1.035) Urine Protein Negative (Negative) mg/dL Urine Glucose (UA) Negative (Negative) mg/dL
[2025-02-03] MEDS: SIMVASTATIN 20 MG TABLET 40 MG PO (21:44)
[2025-02-04] VITALS: PULSE 67; RESP 14
[2025-02-04 05:40] VITALS: BP 143/72; PULSE 65; RESP 16; TEMP 36.2; O2SAT 98
[2025-02-04] MEDS: LEVOTHYROXINE SODIUM 75 MCG TABLET PO (06:30)
[2025-02-04 07:45] VITALS: PULSE 68
[2025-02-04 08:08] LABS: Hematocrit 34.6 % (37.0-47.0); Hemoglobin 11.4 g/dL (12.0-15.0); Immature Granulocyte Percent A 0.2 % (0-0.5); Lymphocytes Absolute Auto 1.48 K/mm3 (0.9-3.2); Mean Corpuscular HGB Conc 32.9 g/dl (32-36); Mean Corpuscular Hemoglobin 32.9 pg (26-34); Mean Corpuscular Volume 100.0 fl (80-100); Nucleated Red Blood Cells Absolute Auto 0.000 K/mm3 (0.0-0.012); Nucleated Red Blood Cells Perc 0.0 % (0.0-0.2); Platelet Count Result 180 k/mm3 (150-375); Red Blood Count 3.46 M/mm3 (4.2-5.4); White Blood Count 4.5 K/mm3 (4.5-10.0)
[2025-02-04 08:35] LABS: Alanine Aminotransferase 20 U/L (6-35); Albumin Level 4.2 g/dL (3.5-5.1); Alkaline Phosphatase 90 U/L (38-126); Anion Gap 6 mmol/L (4-12); Aspartate Amino Transferase 29 U/L (14-36); Bilirubin,Total 0.5 mg/dL (0.2-1.3); Blood Urea Nitrogen 22 mg/dL (7-17); Calcium 9.2 mg/dL (8.4-10.2); Carbon Dioxide 30 mmol/L (22-30); Chloride 101 mmol/L (98-107); Estimated CRCL calculation 51 ml/min; Estimated Glomerular Filt Rate > 60; Glucose 92 mg/dL (65-110); Potassium 4.1 mmol/L (3.4-5.0); Sodium 137 mmol/L (137-145); Total Protein 7.0 g/dL (6.3-8.2)
[2025-02-04] MEDS: VITAMIN B COMPLEX CAPSULE 1 CAP PO (09:33)
[2025-02-04] MEDS: LORATADINE 10 MG TABLET PO (09:33)
[2025-02-04 09:34] VITALS: PULSE 65
[2025-02-04] MEDS: FAMOTIDINE 20 MG TABLET PO (09:34)
[2025-02-04] MEDS: METOPROLOL TARTRATE 25 MG TABLET PO (09:34)
[2025-02-04] MEDS: MULTIVITAMINS THERAPEUTIC TAB (*BKC) 1 TABLET PO (09:35)
[2025-02-04] MEDS: MONTELUKAST SODIUM 10 MG TABLET PO (09:35)
[2025-02-04] MEDS: guaiFENesin 12 HR 600 MG TABCR PO (09:35)
[2025-02-04] MEDS: CHOLECALCIFEROL (VITAMIN D3) 25 MCG (1,000 UNITS) TABLET PO (09:35)
[2025-02-04 11:22] VITALS: PULSE 66
--- NOTE | 2025-02-04 12:33 | P.DS_ITS ---
DS: Admitting Diagnosis Discharge Date 02/04 Admitting Diagnosis dizzy DS: Discharge Diagnosis Discharge Diagnosis (1) Dizziness: Code(s): R42 - Dizziness and giddiness Status: Acute (2) Seizures: Code(s): R56.9 - Unspecified convulsions Status: Chronic (3) Hyperlipidemia: Qualifiers: Hyperlipidemia type: unspecified Qualified Code(s): E78.5 - Hyperlipidemia, unspecified Code(s): E78.5 - Hyperlipidemia, unspecified Status: Chronic (4) Hypertension: Qualifiers: Hypertension type: primary hypertension Qualified Code(s): I10 - Essential (primary) hypertension Code(s): I10 - Essential (primary) hypertension Status: Chronic DS: Summary Hospital Course Hospital Course: 64 y/o F with PMH of seizures, hyperlipidemia, thyroid dysfunction, and hypertension presents here with dizziness. The patient presents here on 02/02 from home for further evaluation of dizziness. She reports she has had 3 intermittent episodes over the past 2 weeks with most recent this morning. Most recent episode started at 9:00 a.m. this morning with last known well at 9-10 p.m. yesterday (02/01). She describes the dizziness as if her surroundings were tilting, stronger than her previous, accompanied by double vision and a tightness to the top of her head. Tightness not painful, maybe some ache in her temples. No hx of migraines or complex migraines per the patient. Dizziness has been precipitated by eating and worsens with movement of her head this morning, she denies a history of diabetes. It is accompanied by intermittent nausea without vomiting and lower extremity weakness (symmetric per her assessment and more so from the knees up). She denies focal weakness, focal numbness, dysarthria, or dysphagia. She denies any recent changes to her medications and reports compliance with her Lamotrigine and Keppra. Last seizure around 1.5 years ago, small. Was on an antibiotic for a sinus infection around 2 weeks ago, had floaters and flashers in both eyes as well as frontal sinus pressure. Was evaluated by an receiving checker - posterior vitriol detachment. With abx the vision changes improved. Now reporting the dizziness resolves, estimates it was around noon. Initial VS at presentation: 97.6? F, HR 70, RR 13, 141/80, and 100% on RA. ED workup showed: WBC 4.2, hemoglobin 11.3, no significant electrolyte derangements, creatinine 0.93 and GFR >60, glucose 85, UA showed trace leuk esterase otherwise unremarkable. Head CT showed no acute intracranial findings. CXR showed no acute cardiopulmonary findings. Head/neck CTA showed no acute findings. EKG showed sinus rhythm, rate 66, incomplete right bundle branch block. Echo is done: Summary 1. Left ventricular systolic function is normal, estimated at 55-60. 2. The left ventricular diastolic function is normal. 3. Right ventricular chamber dimension is mildly enlarged. 4. Right ventricular systolic function is normal. 5. Intact interatrial septum visualized by agitated saline imaging. 6. There is trace mitral valve regurgitation. 7. There is mild tricuspid valve regurgitation. 8. No pulmonary hypertension, estimated pulmonary arterial systolic pressure is 32 mmHg. MRI is done: IMPRESSION: 1. No acute intracranial process. 2. 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 3. No significant change in mild periventricular predominant calcific white matter T2 hyperintensity consistent with chronic small vessel ischemic disease. Neurology was consulted: The patient has more prolonged spell yesterday although she has been having some spells for last [address] scan of brain and CT angiogram of the head and neck did not show any significant abnormality. Neurological examination also did not show any significant abnormal findings. Head thirst test was negative. No nystagmus seen. MRI of the brain is pending in addition to echocardiogram. There is no prior history of cerebrovascular disease or cardiac disease although she is on Zocor 40 mg a day her LDL was 54. seizures have been controlled and she had none for last 18 months or so. She follows of at [facility] and has been on same medications as listed above. However we should follow up the blood level since anticonvulsant can sometimes be was for dizziness although it is less likely since he is not on high dose of any medications and she has not lost any weight nor any new medication has been added recently. PT/OT saw pt and signed off. We ordered seizure medications levels and once results available, we will let neurology know the levels. She is cleared to go home. Status at Discharge Functional status at discharge: independent ambulation Time Spent with Patient Time attestation: Total time spent providing and/or coordinating discharge services: Time spent: Greater than 30 minutes Exam Const: General: comfortable and no acute distress Other: , female, nontoxic appearance HENMT: Face/Nose/Sinus: Normal nares present Mouth: Yes moist mucous membranes Eyes: General: appearance normal, both eyes and all related structures Sclera: sclerae normal Pupils: Equal, round and reactive pupils present EOM: EOMs intact bilaterally Resp: Effort & Inspection: normal respiratory effort Auscultation: clear to auscultation bilaterally Cardio: Rate: regular rate Rhythm: regular rhythm Other: S1-S2 present without murmur, rub, ectopy GI: GI Palp: Yes Soft to palpation Other: Abdomen soft, nondistended, nontender. Normoactive bowel sounds in all quadrants. Skin: General skin exam: normal color and no rashes or lesions noted Wounds: no wounds Neuro: Cranial nerves: Yes Equal, round and reactive pupils present Speech: normal speech Motor exam (neuro): 5/5 motor strength present throughout Sensory Exam: normal sensation Other: NIHSS 0, A&O x4, no nystagmus noted Extrem: General: normal to inspection Psych: Mental Status: mental status grossly normal Affect: normal affect Other: Good insight and judgment, pleasant DS: Data Data Completed and Pending Labs on day of discharge: Labs from last 24 hours 02/04/25 02/03/25 07:50 16:23 WBC 4.5 RBC 3.46 L Hgb 11.4 L Hct 34.6 L MCV 100.0 MCH 32.9 MCHC 32.9 RDW 12.0 Plt Count 180 MPV 9.1 Immature Gran % (Auto) 0.2 Neut % (Auto) 54.1 Lymph % (Auto) 32.8 [place] % (Auto) 10.4 H Eos % (Auto) 1.8 Baso % (Auto) 0.7 Lymph # (Auto) 1.48 [place] # (Auto) 0.5 Eos # (Auto) 0.1 Baso # (Auto) 0.0 Abs Immat Gran (auto) 0.01 Absolute Neuts (auto) 2.4 Absolute Nucleated RBC 0.000 Nucleated RBC % 0.0 Sodium 137 Potassium 4.1 Chloride 101 Carbon Dioxide 30 Anion Gap 6 BUN 22 H Creatinine 0.93 Estim Creat Clear Calc 51 Estimated GFR > 60 Glucose 92 Calcium 9.2 Total Bilirubin 0.5 AST 29 ALT 20 Alkaline Phosphatase 90 Total Protein 7.0 Albumin 4.2 Lamotrigine Pending Levetiracetam Pending Discharge Plan Discharge Attending physician on discharge: Sarah Prakash Consulting providers: Alyssa Rebolledo Discharging Clinician: Svitlana Crain Patient Disposition: Home Activity: may shower Diet: heart healthy Discharge Instructions: Please get an pearl with your neurology for a f/u. once seizure med levels are back, we will fax them to your neurologies. Patient Instructions: Antibiotic Form Patient Language: Estonian Stand Alone Forms: General Discharge Information Follow-up/Referrals: Maxine,Mac Villela MD [Primary Care Provider] - 2 Weeks Discharge Medications: Continued levetiracetam [Keppra] 500 mg tablet 500 mg PO Q12H metoprolol tartrate 25 mg tablet 25 mg PO DAILY amlodipine-benazepril 2.5-10 mg capsule 1 cap PO DAILY montelukast 10 mg tablet 10 mg PO HS famotidine 10 mg tablet 20 mg PO DAILY azelastine 205.5 mcg (0.15 %) spray,non-aerosol 1 spray intranasal QHS PRN (Reason: Nasal Congestion) Rx Instructions: administer into each nostril fexofenadine [Amy Allergy] 180 mg tablet 180 mg PO DAILY guaifenesin [Mucinex] 600 mg tablet extended release 12hr 600 mg PO DAILY vitamin B complex [B Complex-Vitamin B12] Tablet 1 tablet PO DAILY cholecalciferol (vitamin D3) 25 mcg (1,000 unit) capsule 25 mcg PO DAILY multivitamin [Daily Multi-Vitamin] Tablet 1 tablet PO DAILY lamotrigine 200 mg tablet 200 mg PO BID aspirin 81 mg capsule 81 mg PO DAILY Qty: 30 0RF levothyroxine [Levoxyl] 75 mcg tablet 75 mcg PO DAILY terbinafine HCl 250 mg tablet 250 mg PO .1 week a month Patient Comments: Patient states she takes this for 7 days the first week of the month. estradiol 10 mcg tablet 10 mcg VAGINAL .semiweekly simvastatin 40 mg tablet 40 mg PO HS Date of admission: 02/02/25 13:23 Primary Care Provider: MaxineMac Admitting Provider: Kenroy Thompson Attending physician on admission: Donna,Kenroy Condition: Stable Quality VTE Prophylaxis VTE prophylaxis: mechanical ordered Hospitalist MIPS Heart Failure (Exclusion) Patient has history of Heart Transplant or Left Ventricular Assistive Device?: No IF YES, STOP HERE Heart Failure (Qualifier) Patient has current or prior documentation of LVEF less than or equal to 40%, or mod/servere depressed LVSF?: No IF NO, STOP HERE
[2025-02-04 13:52] VITALS: BP 103/52; PULSE 74; RESP 20; TEMP 36.3; O2SAT 100
--- NOTE | 2025-02-07 07:38 | PC.NURSE ---
Toxicology results faxed to patients neurologist.
== END 2025-02-04 14:15 | disposition home or self-care (01) ==
LOC: ANHED 10:13 → ANH3MEDSUR 16:06
PROVIDERS: Emergency Medicine; Nurse Practitioner; Student in an Organized Health Care Education/Training Program; Admitting Provider Internal Medicine; Emergency Provider Student in an Organized Health Care Education/Training Program; PCP Internal Medicine; Visit Provider General Practice
DX: R42 Dizziness and giddiness (principal); G40.909 Epilepsy, unspecified, not intractable, without status epilepticus; I10 Essential (primary) hypertension; E03.9 Hypothyroidism, unspecified; K21.9 Gastro-esophageal reflux disease without esophagitis; E78.5 Hyperlipidemia, unspecified; L71.9 Rosacea, unspecified
CPT/HCPCS: 36415; 70450; 70496; 70498; 70551; 71046; 80048; 80053; 80061; 80175; 80177; 81001; 82948; 83036; 85025; 93005; 93306; 96361; 96374; 96375; 97161; 99285; A9270; C8929; G0378; J1200; J2919; J7030; J7120; Q9967

== ENCOUNTER 2025-04-25 10:02 | Emergency (ER) | payer MEDICARE, SELFPAY ==
--- NOTE | ~2025-04-25 | XR_ITS ---
EXAMINATION: XR chest 2V, 04/25/2025 10:40 BRANDING MACHINE TENDER HISTORY: cp COMPARISON: No comparisons available. Technique: 2 views obtained. Findings: The lungs are clear, no effusion. No pneumothorax. Heart is normal size. Mediastinal and hilar contours are within normal limits. Bony thorax no acute abnormality. Impression: No acute cardiopulmonary abnormality. Reviewed, dictated and finalized at location P. DING MACHINE TENDER Impression: No acute cardiopulmonary abnormality.
--- NOTE | 2025-04-25 10:08 | ECG_ITS ---
Test Date: 2025-04-25 10:13:27 Measurements Intervals [place] Rate: 70 P: 69 PA: 181 QRS: 80 QRSD: 118 T: 51 QT: 430 QTc: 466 Interpretive Statements SINUS RHYTHM INCOMPLETE RIGHT BUNDLE BRANCH BLOCK MINIMAL Q WAVES- LATERAL LEADS BASELINE ARTIFACT- I, II, III, AVR, AVL, AVF BORDERLINE ECG Compared to ECG 02/02/2025 09:50:18 NO SIGNIFICANT CHANGE Electronically Signed On 04-25-2025 10:27:46 [employer] by Haile Mcpherson D.O.
[2025-04-25 10:12] VITALS: BP 137/73; PULSE 70; RESP 19; TEMP 36.4; O2SAT 100
[2025-04-25 10:16] VITALS: O2SAT 100
[2025-04-25 10:17] LABS: Hematocrit 38.2 % (37.0-47.0); Hemoglobin 12.3 g/dL (12.0-15.0); Immature Granulocyte Percent A 0.2 % (0-0.5); Lymphocytes Absolute Auto 1.29 K/mm3 (0.9-3.2); Mean Corpuscular HGB Conc 32.2 g/dl (32-36); Mean Corpuscular Hemoglobin 32.8 pg (26-34); Mean Corpuscular Volume 101.9 fl (80-100); Nucleated Red Blood Cells Absolute Auto 0.000 K/mm3 (0.0-0.012); Nucleated Red Blood Cells Perc 0.0 % (0.0-0.2); Platelet Count Result 237 k/mm3 (150-375); Red Blood Count 3.75 M/mm3 (4.2-5.4); White Blood Count 5.1 K/mm3 (4.5-10.0)
[2025-04-25] MEDS: ASPIRIN 81 MG CHEWABLE TABLET 324 MG PO (10:20)
[2025-04-25 10:33] LABS: INR 1.0; Partial Thromboplastin Time 29.2 Seconds (22.3-36.8); Prothrombin Time 13.4 Seconds (11.1-14.7)
--- OUTSIDE RECORDS SUMMARY | 2025-04-25 10:33 | XMS_ITS | Clinical Summary ---
Author Organization [facility] Address [address] [place] [address] Care Team Providers Care Principal Statistical Programmer Name Role Phone Mac Slaughter MD Primary Care Provider [phone] Allergies Active Allergy Reactions Criticality Noted Date Comments Cefuroxime Nausea & Vomiting,Nausea only,Vomiting Low Reaction: Nausea, Vomiting, face rash, Ciprofloxacin Dizziness Low 03/11/2019 Gadolinium-Containing Contrast Media Swelling High 03/02/2023 Iodinated Contrast Media Seizures High 06/17/2019 Iodine [...] total) by mouth daily 06/01/19 24 Active erythromycin (ILOTYCIN) ophthalmic ointment LOCATION: [...] wheezing 1 each 10/03/19 25 026 Active LevoxyL 75 mcg tabletIndications: Post-surgical hypothyroidism 1 tab po morning with empty stomach, 45 minutes before food/medication s/supplement. Taking consistently and correctly to ensure good/stable [...] daily 90 capsule 3 12/04/19 25 Active simvastatin (ZOCOR) 40 mg tablet Take 1 tablet (40 mg total) by mouth daily 90 tablet 3 03/27/20 25 Active simvastatin (ZOCOR) 40 mg tablet TAKE 1 TABLET BY MOUTH EVERY DAY 90 tablet 3 02/19/20 24 025 Discontin ued(Reord er) Active Problems Problem Noted Date Diagnosed Date Osteopenia of multiple sites 03/06/2025 Vertigo 02/11/2025 Hypothyroidism 09/04/2024 Allergic rhinitis due to pollen [...] down If fails taper could continue Discussed technician terminal and repeater risks of PPI use F/U with Dr. Segura PRN Degenerative disc disease, lumbar 04/13/2022 Assessment & Plan (04/13/2022 10:41 AM CERAMIC ENGINEERING PROFESSOR): Encouraged stretching/yoga and core building Recently rejoined [facility] Post-surgical hypothyroidism 10/12/2021 Assessment & Plan (05/22/2024 11:13 AM CERAMIC ENGINEERING PROFESSOR): Stable. Labs next visit Assessment & Plan (10/12/2021 11:07 AM CDT): Labs today Has noted hair loss, no other symptoms Tinnitus of both ears 10/07/2019 Seasonal allergic rhinitis due to pollen 020 Localization-related symptom atic epilepsy and epileptic syndromes with complex partial seizures, not intractable, without status epilepticus 08/03/2018 Precordial pain 06/05/2018 SVT (supraventricular tachycardia) 06/05/2018 Assessment & Plan (04/13/2022 10:42 AM CERAMIC ENGINEERING PROFESSOR): Follows with Cardiology Cervical radiculopathy 12/17/2015 Essential hypertension 08/26/2015 Overview (08/11/2016): Essential hypertension with goal blood pressure less than 140/90 Assessment & Plan (05/22/2024 11:13 AM CERAMIC ENGINEERING PROFESSOR): Stable and doing well. Assessment & Plan (10/12/2021 11:06 AM CDT): At goal Continue current meds Pure hypercholesterolemia 08/26/2015 Overview (08/11/2016): Pure hypercholesterolemia Assessment & Plan (07/15/2020 10:32 AM CERAMIC ENGINEERING PROFESSOR): Lipids reviewed today Has wellness exam October 2020 and would consider NMR lipid panel at that time Family history of coronary artery disease 2015 Overview (08/11/2016): Family history of premature CAD Epilepsy with partial complex seizures 6 Assessment & Plan (04/13/2022 10:42 AM CERAMIC ENGINEERING PROFESSOR): Follows with Neuro Seizure free since 2009 [...] 10/12/2021 Assessment & Plan (07/15/2020 10:32 AM CERAMIC ENGINEERING PROFESSOR): OTC NSAID's PRN Zanaflex (use, safety, s/e reviewed) Heat PRN Gentle Stretches PT referral, if not improving in 4-6 weeks, or worsening, to contact office for imaging Bilateral impacted cerumen 10/07/2019 0 07/15/2020 Acute nasopharyngitis 07/11/20192024 Assessment & Plan (09/21/2023 10:53 AM CDT): OTC treatments Azithromycin given allergies Assessment & Plan (12/20/2022 2:56 PM CDT): Zpack Tessalon pearls PRN Warm salt gargles Leukopenia 09/17/2015 07/15/2020 Encounters Date Type Department Care Team Description 03/27/2025 Telephone [facility] [address] [place] [phone] Janice Renteria LPN Further expalation of diagnoses 03/20/2025 11:10 AM CERAMIC ENGINEERING PROFESSOR Clinical Support [facility] [address], [address] [place] [address] Post-menopausal (Primary Dx); Osteopenia of multiple sites 03/18/2025 Results Follow-Up [facility] [address] [place] [address] Mac Slaughter MD Basic metabolic panel 03/12/2025 1:30 PM CERAMIC ENGINEERING PROFESSOR Telemedicine [facility] [address] [place] [phone] Vanita Castanon NP Vertigo (Primary Dx) 03/10/2025 Orders Only [facility] [address] [place] [address] [place] [phone] Sana Thomason, RMA Essential hypertension (Primary Dx) 03/10/2025 Orders Only [facility] [address] [address] Sana Thomason, RMA Seizures (HCC) (Primary Dx) 03/09/2025 Results Follow-Up [facility] [address] [address] Mac Slaughter MD T4, free, TSH, Dexa TBS Axial Skeleton Bone Density 1 or more sites 03/06/2025 12:49 PM CDT - 03/06/2025 11:59 PM CDT Hospital Encounter [facility] [address] [place], [place] [id number] Hypothyroidism, unspecified type Discharge Disposition: Discharge to home or self care 03/06/2025 10:45 AM CDT Office Visit [facility] [address] [address] Mac Slaughter MD Osteopenia of multiple sites (Primary Dx); Essential hypertension; Pure hypercholesterolemi a; Hypothyroidism, unspecified type 02/26/2025 1:45 PM CDT Procedure visit [facility] [address] [place] [phone] Marilynn Hood Dizziness (Primary Dx) 02/11/2025 11:30 AM CDT Office Visit [facility] [address] [place] [phone] Vanita Castanon NP Vertigo (Primary Dx); Tinnitus of both ears 02/11/2025 11:00 AM CDT Procedure visit [facility] [address] [place] [phone] Erwin Marilynnclau [place] Dizziness and giddiness (Primary Dx); Pressure sensation in both ears 02/04/2025 Orders Only [facility] [address] [place] [phone] Mac Slaughter MD 02/03/2025 Orders Only [facility] [address] [place] [phone] Mac Slaughter MD from Last 3 Months Immunizations Immunization Administration Dates Next Due Influenza, Quadrivalent, Vannessa l Culture-based MDCK, Preservative Free, Antibiotic Free, Intramuscular 01/22/2022 Influenza, Quadrivalent, Rec ombinant, Egg Free, Preservative Free, Intramuscular 01/06/2021 Influenza, Quadrivalent, Spl it, Preservative Free, Intramuscular 02/14/2023,01/17/2021,12/30/2019 Influenza, Trivalent, High D ose, Split, Preservative Free, Intramuscular 12/26/2024 Influenza, Trivalent, IM (MDV) 02/23/2022,2016,01/04/2015 Influenza, Trivalent, Preser vative Free, Intramuscular 12/17/2023 Influenza, Unspecified 01/09/2018 Pneumococcal Conjugate Pcv20 03/28/2024 TD Preservative Free 10/26/2016 Td, Not Adsorbed 10/26/2016 ZOSTER Recombinant 04/17/2023,04/14/2023, 023 Surgical History Surgery Date Site/Laterality Comments THYROIDECTOMY Thyroidectomy CYSTOGRAPHY DILATION AND CURETTAGE OF UTERUS Medical History Medical History Date Comments Gastroesophageal reflux disease GERD Seizure disorder (HCC) Seizure d isorder Disorder of thyroid Thyroid dise ase Allergic rhinitis Eustachian tube dysfunction Hypertension Hyperlipemia Supraventricular tachycardia Seizure disorder (HCC) Tinnitus Osteoporosis 2017 Ear problems Dizziness Family History Medical History Relation Name Comments Cancer Brother 1 Hunter Sims Hyperlipidemia Brother 1 Hunter Colmenarese Hypertension Brother 1 Hunter Sims Other Brother 1 Hunter Sims HTN< HLD; Hyperlipidemia Brother 2 Francisco Sims Hypertension Brother 2 Francisco Sims Prostate cancer Brother 2 Francisco Sims Family histo ry of malignant neoplasm of prostate - (Added by TW Conv) Hypertension Brother 3 Aaron Sims Heart attack Father Sylwia Sims Hyperlipidemia Father Sylwia Sims Hypertension Father Sylwia Sims Other Father Sylwia Sims Myocardial infa rction; CAD started in 40's; [...] on file Legal Sex Female 3:59 AM CERAMIC ENGINEERING PROFESSOR Gender Identity Female 08/16/2020 2:35 PM CDT Sexual Orientation Straight 08/16/2020 2: 35 PM CDT Obstetrics History Para Term AB IAB SAB Ectopic Multiple Livin g Live Births 0 0 0 0 0 0 0 0 0 0 0 Comments Last Filed Vital Signs Vital Sign Reading Time Taken Comments Blood Pressure 115/71 03/06/2025 10:29 AM CDT Pulse 77 03/06/2025 10:29 AM CDT Temperature 36.2 C (97.1 F) 01/16/2025 9:25 AM CDT Respiratory Rate 18 02/11/2025 11:21 AM CDT Oxygen Saturation 99% 01/16/2025 9:25 AM CDT Inhaled Oxygen Concentration - - Weight 60.1 kg (132 lb 9.6 oz) 03/20/2025 10:28 AM CERAMIC ENGINEERING PROFESSOR Height 172 cm (5' 7.72) 03/20/2025 10:28 AM CERAMIC ENGINEERING PROFESSOR Body Mass Index 20.33 03/20/2025 10:28 AM CERAMIC ENGINEERING PROFESSOR Plan of Treatment Health Maintenance Due Date Last Done Comments Hepatitis B Screening 11/29[birth year]1977 DTaP/Tdap/Td Vaccine (1 - Tdap) 10/27/2016 7, 10/26/2016 Depression Screening 11/14/2024 11/15/2023, 11/05/19 23 Fall Risk Assessment 11/14/2024 11/15/2023 Breast Cancer Screening-Mammogram 07/03/2025 07/03/2024, 06/30/2022, 05/11/2021, Additional history exists Cervical Cancer Screening 08/01/20252024, 08/01/2024, 06/08/2022 Well Visit 65+ 08/01/2025 08/01/2024, 07/06, 11/04/2022, Additional history exists Covid-19 Vaccine (2024- season) 2025 02/19/2025, 02/05/2024, 07/12/2023, Additional history exists Osteoporosis Screening-Bone Density Scan 03/20/2027 03/20/2025, 10/08/2020 Colon Cancer Screening-Colonoscopy 07/01/20312021 Zoster Vaccine Completed 04/17/2023, 12/2022, 11/23/2022 Hepatitis C Screening Completed 11/15/2023 Pneumococcal vaccine 65+ Completed 03/28/2024 Influenza Vaccine Completed 12/26/2024, , 02/14/2023, Additional history exists Procedures Procedure Name Priority Date/Time Associated Diagnosis Comments DEXA TBS AXIAL SKELETON BONE DENSITY 1 OR MORE SITES Schedule Routine, Read Routine (OP Routine) 03/20/2025 10:58 AM CERAMIC ENGINEERING PROFESSOR Osteopenia of multiple sites BASIC METABOLIC PANEL Routine 03/13/2025 3:13 PM CERAMIC ENGINEERING PROFESSOR Essential hypertension T3, FREE Routine 03/06/2025 11:52 AM CDT Hypothyroidism, unspecified type TSH Routine 03/06/2025 11:43 AM CDT Hypothyroidism, unspecified type T4, FREE Routine 03/06/2025 11:43 AM CDT Hypothyroidism, unspecified type SCAN - RADIOLOGY/IMAGING 02/04/2025 8:25 AM CDT SCAN - RADIOLOGY/IMAGING 02/03/2025 4:05 PM CDT SCAN - RADIOLOGY/IMAGING 02/03/2025 1:41 PM CDT HIGH RISK HPV DNA DETECTION WITH GENOTYPING Routine 08/01/2024 10:08 AM CDT Well woman exam SCREENING MAMMOGRAM BILATERAL W MANOHAR Schedule Routine, Read Routine (OP Routine) 07/03/2024 10:28 AM CERAMIC ENGINEERING PROFESSOR Encounter for screening mammogram for malignant neoplasm [...] C screening test for low risk patient from Last 3 Months or Most Recently Relevant to Health Maintenance Results * Dexa TBS Axial Skeleton Bone Density 1 or more sites (03/20/2025 10:58 AM CERAMIC ENGINEERING PROFESSOR) Anatomical Region Laterality Modality Wrist, Body N/A Radiographic Ekaterina ging Narrative 03/21/2025 8:46 AM CERAMIC ENGINEERING PROFESSOR Patient Name: Madyson Sims Date of : 1960 Date of scan: 03/20/2025 Bone mineral density was performed on a HoloDocVerse Discovery Densitometer. Based on machine cross-calibration and precision studies the least significant changes of this densitometer is 0.024 g/cm2 at the spine, 0.020 g/cm2 at the total proximal femur, and 0.014g/cm2 at the forearm. HISTORY: This is a 64 y.o. postmenopausal female with a history of low bone mass, thyroid disease, and vitamin D deficiency. She reports that she has never smoked. She has never used smokeless tobacco. Currently on treatment with calcium, vitamin D, anti-seizure medications, and thyroid hormone. INDICATIONS: Menopause status, vitamin D deficiency, and history of low bone mass. FINDINGS: BONE MINERAL DENSITY OF THE LUMBAR SPINE Bone Mineral Density (BMD) of the lumbar spine was measured from L1-L4 and the average density was calculated to be 0.912 gm/cm2. This corresponds to a T-score (standard deviations from the mean of young adults) of -1.2. There is no previous study available for comparison. BONE MINERAL DENSITY OF THE PROXIMAL FEMUR Bone Mineral Density (BMD) of the left hip total was found to be 0.716 gm/cm2. This corresponds to a T-score standard deviations from the mean of young adults of -1.9. Femoral neck is 0.628 gm/cm2 with a T-score (standard deviations from the mean of young adults) of -2.0. There is no previous study available for comparison. SUMMARY: Bone mineral density shows evidence of low bone mass at the lumbar spine and proximal femur and moderately increased fracture risk (Osteopenia). ADDITIONAL COMMENTS: Postmenopausal Women and Men Over 50: Diagnostic criteria: Osteoporosis: BMD at or below -2.5 T-score; Osteopenia (low bone mass): BMD between -1.0 and -2.5 T-score. If the patient has a history of a fragility fracture, a fracture that occurred with trauma equivalent to a fall from a standing position or less, then the diagnosis is osteoporosis regardless of bone density. The history and data sections of the bone mineral density scan were prepared by Katharnie Zuluaga who is accredited by the International Society of Clinical Densitometry. The overall patient assessment and scan interpretation were performed by Soniya Martínez M.D. who is certified by the International Society of Clinical Densitometry. [id number] us Mac Slaughter MD [facility] DXA PROCEDURES Final Resu lt * (ABNORMAL) Basic metabolic panel (03/13/2025 3:13 PM CERAMIC ENGINEERING PROFESSOR) Pathologist [facility] Glucose 104(H) 70 - 99 mg/dL [facility] - 01 BUN 23 8 - 27 mg/dL [facility] - 01 Creatinine, Serum 0.97 0.57 - 1.00 mg/dL [facility] - 01 eGFR 65 >59 mL/min/1.7 3 [facility] - 01 BUN/creat ratio 24 12 - 28 [facility] - 01 Sodium 139 134 - 144 mmol/L [facility] - 01 Potassium, sr 4.4 3.5 - 5.2 mmol/L [facility] - 01 Chloride 102 96 - 106 mmol/L [facility] - 01 CO2 23 20 - 29 mmol/L [facility] - 01 Calcium 9.5 8.7 - 10.3 mg/dL [facility] - 01 Blood 03/13/2025 3:13 PM CERAMIC ENGINEERING PROFESSOR 03/13/2025 Narrative [facility] - 03/14/2025 7:10 AM CERAMIC ENGINEERING PROFESSOR Performed at: [address] [id number] Computational Linguist: Song Brooks PhD, Phone: [phone] us Mac Slaughter MD LAB BLOOD ORDERABLES Final Re sult Performing Organization Address City/[facility]/ZIP Co de Phone Number [facility] - 01 * T3, free (03/06/2025 11:52 AM CDT) Free T3 2.9 2.0 - 4.4 pg/mL Blood 03/06/2025 11:5 2 AM CDT 03/06/2025 1:42 PM CDT us Mac Slaughter MD LAB BLOOD ORDERABLES Final Re sult Performing Organization Address [facility] Co de Phone Number [facility] Department [place] [address] * TSH (03/06/2025 11:43 AM CDT) TSH 1.29 0.27 - 4.20 uIU/mL [facility] Blood 03/06/2025 11:4 3 AM CDT 03/06/2025 11:52 AM CDT us Mac Slaughter MD LAB BLOOD ORDERABLES Final Re sult [facility] [address] [facility] [address] [id number] * T4, free (03/06/2025 11:43 AM CDT) Free T4 1.69 0.93 - 1.70 ng/dL [facility] Blood 03/06/2025 11:4 3 AM CDT 03/06/2025 11:52 AM CDT us Mac Slaughter MD LAB BLOOD ORDERABLES Final Re sult [facility] [address] [phone], [facility] * SCAN - RADIOLOGY/IMAGING (02/04/2025 8:25 AM CDT) Anatomical Region Laterality Modality Other us Mac Slaughter MD Final Result * SCAN - RADIOLOGY/IMAGING (02/03/2025 4:05 PM CDT) Anatomical Region Laterality Modality Other us Mac Slaughter MD Final Result * SCAN - RADIOLOGY/IMAGING (02/03/2025 1:41 PM CDT) Anatomical Region Laterality Modality Other us Mac Slaughter MD Final Result * High Risk HPV DNA Detection with Genotyping (Molecular component) (08/01/2024 10:08 AM CDT) HPV HR 16 Not Detected Not Detected [facility] Comment:Testing performed by : [facility], [address] [place]., [address] HPV HR 18 Not Detected Not Detected [facility] Comment:Testing performed by : [facility], [address] [place]., [address] HPV HR Non 16/18 Not Detected Not [...] this test have been verified by the [facility] Molecular Infectious Disease laboratory. Correlate with separately reported cytology results, as applicable. Interpretive data last revised 22 Testing performed by: [facility], [address] [place]., [address] Endocervical 08/01/2024 10:0 8 AM CDT 08/02/2024 4:30 PM CDT Narrative [facility] - 08/05/2024 7:20 PM CDT Clinical history and diagnosis->screening Testing type->Screening Last menstrual period (date if known)->postmenopausal Shannon Paiz MD LAB BODY FLUIDS AND STOOL S ORDERABLES Final Result [facility] [address] [facility] Department [place] [address] [facility] * Screening Mammogram Bilateral W Manohar (07/03/2024 10:28 AM CERAMIC ENGINEERING PROFESSOR) Anatomical Region Laterality Modality Breast Bilateral Mammography Impressions 07/03/2024 12:46 PM CERAMIC ENGINEERING PROFESSOR BI-RADS ATLAS category (overall): 1 - Negative There is no mammographic evidence of malignancy. A 1 year screening mammogram is recommended. The patient has been or will be contacted. We recommend annual screening mammography for women at average risk of breast cancer beginning at age 40, based on guidelines of the [employer] (ACR Practice Parameter for the Performance of Screening and Diagnostic Mammography) and [employer]. For women with and elevated risk of breast cancer, please refer to the ACR Practice Parameter for specific screening recommendations. The patient will be entered into a reminder system with a target due date of 1 year for her next screening exam. Narrative 07/03/2024 12:46 PM CERAMIC ENGINEERING PROFESSOR Screening Mammogram Bilateral W Manohar: 07/03/24 The [...] 5:09 AM CDT Performed at: 01 - [place] [address] Computational Linguist: Song Brooks PhD, Phone: [phone] Mac Slaughter MD LAB MICROBIOLOGY - GENERAL OR DERABLES Final Result [facility] - 01 from Last 3 Months or Most Recently Relevant to Health Maintenance Insurance [employer] [facility] MEDICARE ADVANTAGE [facility] MEDICARE ADVANTAGE [facility] MEDICARE ADVANTAGE Care Teams Principal Statistical Programmer Relationship Specialty Start Date End Date Mac Slaughter MD PCP - General 11/14/17
--- OUTSIDE RECORDS SUMMARY | 2025-04-25 10:33 | XMS_ITS | Encounter Summary ---
Author Organization [facility] Address [address] [place] [address] Care Team Providers Care Metal Bonding Helper Name Role Phone Mac Slaughter MD Primary Care Provider [phone] Reason for Referral * Neurology (Routine) - Closed Specialty Diagnoses / Procedures Referred By Contac t Referred To Contact Neurology Diagnoses Numbness and tingling of upper extremity Procedures EMG/NCV -Please select the performing region: [facility] (All Locations); Procedure performed at: [facility] EMG Lab; Clinical Summary: numbness and tingling in the upper extremities; Reason for referral or diagnostic question: numbness and... Mac Slaughter MD Phone: tel: fax: [facility] Medicine Neurological Testing [address] [facility] [address] [place] [address] Phone: tel: fax: Referral ID Status Reason Start Date Expiration Date Visits Re quested Visits Authorized [id number] Closed 05/16/2019 11/24/2020 1 1 OWS ASSEMBLER Encounter Details Date Type Department Care Team (Late st Contact Info) Description 05/16/2019 Orders Only Internal Medicine Mac Slaughter MD [address] [facility] [address] [place], [place] [id number] Numbness and tingling of upper extremity (Primary Dx) Social History Tobacco Use Types Packs/Day Years Used Date Smoking Tobacco: Never Smokeless Tobacco: Never Alcohol Use Standard Drinks/Week Comments No 0 (1 standard drink = 0.6 oz pur e alcohol) Comments Unknown Sex and Gender Information Value Date Recorded Sex Assigned at Not on file Legal Sex Female 3:59 AM BELLOWS ASSEMBLER Gender Identity Female 08/16/2020 2:35 PM CDT Sexual Orientation Straight 08/16/2020 2: 35 PM CDT documented as of this encounter Progress Notes * Sana Thomason - 05/16/2019 1:21 PM CST ncs documented in this encounter Plan of Treatment Not on file documented as of this encounter Results * EMG/NCV (06/03/2019 2:30 PM BELLOWS ASSEMBLER) Anatomical Region Laterality Modality Other Narrative 06/03/2019 2:30 PM BELLOWS ASSEMBLER Kaci Smith MD 06/04/2019 9:29 AM EMG/NCV -Please select the performing region: [facility] (All Locations); Procedure performed at: [facility] EMG Lab; Clinical Summary: numbness and [...] extremity documented in this encounter Care Teams Metal Bonding Helper Relationship Specialty Start Date End Date Mac Slaughter MD PCP - General 11/14/17 documented as of this encounter
--- OUTSIDE RECORDS SUMMARY | 2025-04-25 10:33 | XMS_ITS | Data Portability ---
Author Organization [facility] Address [address] [place] [address] Assessment Encounter Date Assessment Date Assessment LastModified [...] mg/gram) vaginal cream 2019 020 INTERFACE [id number], [address] [place], [address], 0 10:55:05 Patient TargetsNo targets recorded. Patient InstructionsNo instructions recorded. Reason for Referral None Reported. Results Created Date Observation Date Name Description Value Unit Range Abnormal Flag Note LastModifiedBy Organization Detail LastModifiedTime 03/16/20 20 03/19/2020 pap, LB Pap test thin prep Negati [...] which jorge ts the lab in the scree bao of ThinP rep Pap Test slide [...] tion of E6/E7 viral mRNA. Resul ts bianca d be corre lated with patie nt prese ntati on, histo ry, cervi isabel cytol ogy and other clini isabel and labor atory findi ngs. See https ://[employer]/s ites/ defethan lt/fi les/2 018-0 3/AW- 85625 _002_ 01.pd f for furth er infor matbrenda n. Test perfo rmed by [facility], [address], [place] [address] , Jenna Gonsalez ra, DO, Labor atory [...] and labor atory findi ngs. See https ://[employer]/s ites/ josefina lt/fi les/2 018-0 3/AW- 55972 _002_ 01.pd f for furth er infor juan n. Test [facility]fo [facility]med by [facility] d/b/a [facility] rouAcousticeye, [address], [place] [address] , Jenna Gonsalez ra, DO, Labor atory Direc tor. End of t Techn ical servi enedina provi ded by [facility], d/b/a [facility]oup, [address] [place] [address] Jeff Villalobos MD, Labor atorTriposo Dire tor. Case revie wed and diagn osis rende red at [facility], d/b/a [facility], [address] [place] [address] Jeff Villalobos MD, [facility] [employer] Dire tor. CONFI DENTI AL Not Available [facility] ([facility]) [address], [place], [address], 03/19/2020 09:36:09 03/16/20 20 03/18/2020 HPV DNA, high- risk HPV high risk NOT DETECT ED normal Not Available [facility] ([facility]) [address], [place], [address], 03/19/2020 09:36:10 05/05/20 20 05/05/2020 MAMMO , scree bao, bilat eral No observ ation record ed. [facility] [address], [place], [address], 05/11/2020 20:15:52 Result Notes None recorded. Problems Name Problem SNOMED Code Status Onset Date Resolution Date Notes Provider Name and Address Organization Details Recorded Time Microscop ic hematuria 200875213 Active 2013 HEMATURIA MICROSCOP IC;Practi ce ID: 0001 Not Available [facility] 0 21:46:26 Screening for malignant neoplasm of rectum Active 2013 Screening for malignant neoplasms of the rectum;Pr actice ID: 0001 Not Available [facility] 0 21:46:26 Specializ ed medical examinati on Active 2014 Gynecolog ical Examinati on;Record ed Elsewhere : No Locati on: [facility] So urce: EHR Chron ic: N Practic e ID: 0001 Bill able Time: 08:30:00 AM Not Available [facility] 0 21:46:26 Leukocyto sis 137334470 Active 2014 LEUKOCYTO SIS NOS;Recor ded Elsewhere : No Locati on: [facility] So urce: EHR Chron ic: N Practic e ID: 0001 Bill able Time: 08:30:00 AM Not Available [facility] 0 21:46:26 Adult health examinati on Active 2014 Routine general medical examinati on at a health care facility; Practice ID: 0001 Not Available [facility] 0 21:46:27 Screening for malignant neoplasm of cervix Active 2014 SCREEN MAL NEOP-CERV IX;Practi ce ID: 0001 Not Available [facility] 0 21:46:27 Carbuncle 956792928 Active 2014 Carbuncle , unspecifi ed;Practi ce ID: 0001 Not Available [facility] 0 21:46:27 Evaluatio n finding Active 2015 Hematuria , unspecifi ed;Practi ce ID: 0001 Not Available [facility] 0 21:46:[address] Concept Active 2015 Encntr for rv body mechanic exam (general) (routine) w/o abn findings; Practice ID: 0001 Not Available [facility] 0 21:46:27 Acute vaginitis 29513666 Active 2015 Acute vaginitis ;Practice ID: 0001 Not Available [facility] 0 21:46:27 Pelvic and perineal pain 944460068 Active 2015 Pelvic and perineal pain;Prac ashley ID: 0001 Not Available [facility] 0 21:46:27 Benign essential microscop ic hematuria 03611312947 9109 Active 2015 Benign essential microscop ic hematuria ;Practice ID: 0001 Not Available [facility] 0 21:46:27 Cyst of ovary Active 2015 Unspecifi ed ovarian cyst, unspecifi ed side;Cameron rded Elsewhere : No Locati on: [facility] So urce: EHR Chron ic: N Practic e ID: 0001 Bill able Time: 10:48:34 AM Not Available [facility] 0 21:46:33 Imaging of abdomen abnormal 472204518 Active 2015 Abn findings on dx imaging of abd regions, inc retroperi ton;Pract ice ID: 0001 Not Available [facility] 0 21:46:28 Polyp of corpus uteri 05301628 Active 2016 Polyp of corpus uteri;Pra ctice ID: 0001 Not Available [facility] 0 21:46:28 Polyp of cervix 19265195 Active 2016 Polyp of cervix uteri;Pra ctice ID: 0001 Not Available [facility] 0 21:46:28 Urinary tract infectiou s disease 53674526 Active 2016 Urinary tract infection , site not specified ;Practice ID: 0001 Not Available [facility] 0 21:46:[address] Concept Active 2016 Encounter for general adult medical exam w abnormal findings; Practice ID: 0001 Not Available [facility] 0 21:46:29 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 Oth noninflam matory disorders of vulva and perineum; Practice ID: 0001 Not Available [facility] 0 21:46:30 Vaginolab ial hernia Active 2017 Other specified noninflam matory disorders of vagina;Re corded Elsewhere : No Locati on: [facility] So urce: EHR Chron ic: N Practic e ID: 0001 Bill able Time: 02:45:00 PM Not Available [facility] 0 21:46:32 Atrophic vaginitis 72983649 Active 2018 Postmenop ausal atrophic vaginitis ;Practice ID: 0001 Not Available [facility] 0 21:46:[address] Concept Active 2018 Encntr for general adult medical exam w/o abnormal findings; Practice ID: 0001 Not Available [facility] 0 21:46:31 Problem Notes None recorded. Procedures Surgical History Date Name Laterality Status Provider Name and Address Organization Details Recorded Time Colonoscopy completed [facility] 03/16/2020 10:25:26 Hysteroscopy completed [facility] 03/16/2020 10:25:33 cervical polypectomy completed [facility] 03/16/2020 10:26:00 thyroidectomy completed [facility] 03/16/2020 10:27:11 Imaging Results None recorded. Procedure Notes None recorded. Medical Equipment None Reported. Allergies Allergen ID Allergen Name Allergen Category Reaction Reaction Severity Criticality Documentation Date Start Date Code Code System Note Provider Name and Address Organization Details Recorded Time 2642 cefuroxim e Not available Not available Not available Not available 03/16/2020 2194 RxNorm Disha [facility] 0 10:20:59 2643 ciproflox acin medicatio n Not available Not available Not available 03/16/2020 2551 RxNorm Disha Wayne [facility] 0 10:21:06 2644 Iodinated contrast media (substanc e) medicatio n Not available Not available Not available 03/16/2020 66725 2004 SNOMED Disha [facility] 0 10:21:15 2645 latex environme nt,medica tion Not available Not available Not available 03/16/2020 83539 91 RxNorm Disha Wayne [facility] 0 10:21:19 2646 Product containin g penicilli n (product) medicatio n Not available Not available Not available 03/16/2020 84926 8001 SNOMED Disha car[place], [place] - [facility] 0 10:21:25 Medications Name Sig Start Date Stop Date Status Note LastModified by Organization Details LastModified Time Keppra 500 mg tablet take 1 tablet by oral route 2 times every day active Prescrib ed Elsewher e: Yes Loca tion: [facility] odify By: munira bergeronunter DateTime : 01/24/20 14 08:30:00 AM Not [...] Prescrib ed Elsewher e: Yes Loca tion: [facility] odify By: [email or web address] Encount er DateTime : 03/11/20 19 08:45:00 AM Not Available Not Available Not Available Tegretol XR 200 mg tablet,ex tended release active Not Available Not Available Not Available Synthroid 100 mcg tablet take 1 tablet by oral route every day active Prescrib ed Elsewher e: Yes Loca tion: [facility] odify By: munira bergeronunter DateTime : 01/24/20 14 08:30:00 AM Not [...] Prescrib ed Elsewher e: No Locat ion: [facility] odify By: alvaro Laws ter DateTime : 02/28/20 17 11:25:23 AM Not Available Not Available Not Available simvastat in 40 mg tablet take 1 tablet by oral route every day in the evening active Prescrib ed Elsewher e: Yes Loca tion: [facility] odify By: munira shah DateTime : 01/24/20 14 08:30:00 AM Not Available Not Available Not Available ciclopiro x 8 % topical solution active Not Available Not Available Not Available doxycycli ne monohydra te 50 mg capsule take 1 capsule by oral route every 12 hours 10/11 completed Prescrib ed Elsewher e: Yes Loca tion: [facility] odify By: [email or web address] Encounte r DateTime : 02/15/20 16 11:30:00 AM Not Available Not Available Not Available Metrogel Vaginal 0.75 % (37.5 mg/5 gram) insert 1 applicat orful by vaginal route every day at bedtime 02/20 completed Prescrib ed Elsewher e: No Locat ion: [facility] odify By: munira shah DateTime : 05/16/19 17 12:21:22 PM Not Available Not Available Not Available famotidin e 20 mg tablet take 1 tablet by oral route 2 times every day active Prescrib ed Elsewher e: Yes Loca tion: [facility] odify By: munira shah DateTime : 01/24/20 14 08:30:00 AM Not Available Not Available Not Available amlodipin e 5 mg-benaze pril 10 mg capsule take 1 capsule by oral route every day active Prescrib ed Elsewher e: Yes Loca tion: [facility] odify By: [email or web address] Encount er DateTime : 03/11/20 19 08:45:00 AM Not Available Not Available Not Available Amy 180 mg tablet take 1 tablet by oral route every day active Prescrib ed Elsewher e: Yes Loca tion: [facility] odify By: munira shah DateTime : 01/24/20 14 08:30:00 AM Not Available Not Available Not Available doxycycli ne monohydra te 100 mg capsule take 1 capsule by oral route daily 04/27 completed Prescrib ed Elsewher e: No Locat ion: [facility] odify By: jero shah DateTime : 04/23/20 15 08:13:02 AM Not Available Not Available Not Available Cipro 500 mg tablet take 1 tablet by oral route every 12 hours 04/23 completed Prescrib ed Elsewher e: No Locat ion: [facility] odify By: jero bergeronuntmilan DateTime : 04/23/20 15 08:13:02 AM Not Available Not Available Not Available Tegretol XR 400 mg tablet,ex tended release take 1 tablet by oral route every 12 hours active Prescrib ed Elsewher e: Yes Loca tion: [facility] odify By: munira bergeronunter DateTime : 01/24/20 14 08:30:00 AM Not Available Not Available Not Available metronida zole 0.75 % topical cream active Not Available Not Available Not Available monteluka st 10 mg tablet take 1 tablet by oral route every day in the evening active Prescrib ed Elsewher e: Yes Loca tion: [facility] odify By: munira bergeronunter DateTime : 01/24/20 14 08:30:00 AM Not [...] Elsewher e: Yes Loca tion: [facility] odify By: munira bergeronunter DateTime : 02/21/20 17 01:30:00 PM Not [...] Elsewher e: Yes Loca tion: [facility] odify By: [email or web address] Encount er DateTime : 01/24/20 14 08:30:00 AM Not Available Not Available Not Available metronida zole 375 mg capsule take 1 capsule by oral route every 6 hours active Prescrib ed Elsewher e: Yes Loca tion: [facility] odify By: cameron Jackson r DateTime [...] Elsewher e: No Locat ion: [facility] odify By: cameron Jackson r DateTime : 02/28/20 17 11:28:06 AM Not Available Not Available Not Available Vitamin B-12 ER 1,000 mcg tablet,ex tended release 2014 active Prescrib ed Elsewher e: Yes Loca tion: [facility] odify By: munira Beyer ncounter DateTime : 04/22/20 15 04:30:00 PM Not Available Not Available Not Available Mucinex 600 mg tablet, extended release take 1 tablet by oral route every 12 hours as needed active Prescrib ed Elsewher e: Yes Loca tion: [facility] odify By: munira Beyer ncounter DateTime : 01/24/20 14 08:30:00 AM Not Available Not Available Not Available Vitamin D3 25 mcg (1,000 unit) capsule 04/23 completed Prescrib ed Elsewher e: Yes Loca tion: [facility] odify By: alvaro burrell DateTime : 01/24/20 14 08:30:00 AM Not Available Not Available Not Available Premarin 0.625 mg/gram vaginal cream insert 1 gram by vaginal route every bedtime 08/02 completed Prescrib ed Elsewher e: No Locat ion: [facility] odify By: nelsy shah DateTime : 07/11/19 19 10:46:43 AM Not [...] Elsewher e: Yes Loca tion: [facility] odify By: amkjoleen shah DateTime : 02/03/20 15 08:30:00 AM Not Available Not Available Not Available Amy Allergy active Not Available Not Available Not Available metoprolo l gabriel-hydroc hlorothia z active Not Available Not Available Not Available Multi Vitamin active Not Available Not Available Not Available Centrum Silver Women 8 mg iron-400 mcg-50 mcg tablet 10/11 completed Prescrib ed Elsewher e: Yes Loca tion: [facility] odify By: cameron barnett DateTime : 04/22/20 15 04:30:00 PM Not Available Not Available Not Available Vitamin B12 active Not Available Not Available Not Available Kapspargo Sprinkle 25 mg capsule,e xtended release 03/11 completed Prescrib ed Elsewher e: Yes Loca tion: [facility] odify By: cesario Lawst er DateTime : 08/03/19 02:00:00 PM Not Available Not Available Not Available Fluzone Quad (PF) 60 mcg (15 mcg x 4)/0.5 mL IM syringe active Not Available Not Available Not Available Vitals Date Recorded Systolic And Diastolic Provider Name and Address Organization Details Last Updated DateTime 03/16/2020 130/82 mm[Hg] Serene Angeles, [facility]- [address], [place], [address], [facility] 03/16/2020 13:01:19 Date Recorded Body height Body mass index (BMI) Body weight Provider Name and Address Organization Details Last Updated DateTime 03/16/2020 170.18 cm 21.9 kg/m2 08274.93 g Disha Wayne [facility] 03/16/2020 10:35:02 Social History None recorded. Functional Status None [...] Medical History Condition Response Thyroid Problems Y Hypertension Y High Cholesterol Y Gynecological History Statement/Question Response Current Control Method None Obstetrics History GPAL:G 0 P 0 0 0 0 Past Encounters Encounter ID Performer Location Encounter Start Date Encounter Closed Date Diagnosis/Indication Diagnosis SNOMED-CT Code Diagnosis ICD10 Code Diagnosis IMO Codes Diagnosis Note [id number] Serene Angeles , [facility] [address] [address] 03/16/2020 10:06:47 03/16/2020 14:32:30 Gynecologic examination 00071811 Z01.419 Take Calcium with Vitamin D 12-1500mg daily. Do monthly self breast exams. It is advised to get annual flu shot in the fall and she could obtain at [facility] or [facility] care clinic. If you haven't received the [...] otherwise indicated. per asccp. Atrophy of vagina 717592 009 N95.2 Estrace sent Will call if newer products are covered by insurance. Imvexxy or Intrarosa. Health Concerns Section Related Observation LastModified by Organization Detai ls LastModified Time None Recorded Concern Status LastModified by Organization Details LastModified Time None Recorded Advance Directives Directive None Recorded Payers Insurance Date Sequence Insurance Name Policy Number Policy Silva Covered Member ID Silva Member ID Guarantor Name 03/16/2020 1 [employer] [id number] T Mingo Brennan [id number] Notes Date Note Type Note Provider Name and Address Organization Details Recorded Time 0 text/html Annual GYNReported by PatientHistoryFor history, patient reportsno gynecologic complaints.Genitourina ry symptomsFor menstrual cycle, patient reportsnormal menses. For urinary symptoms, patient reportsno hematuriaandno incontinence. For vulva, patient reportsno genital lesion. For vagina, patient reportsnormal vaginal discharge.Breast symptomsFor breast, patient reportsno breast pain,no breast lump, andno nipple discharge.Endocrine symptomsFor sexual complaints, patient reportsno sexual complaints,no pain during intercourse, andnormal libido. For menopausal symptoms, patient reportsno menopausal symptomsandnormal vaginal lubrication.Psychologi isabel symptomsFor psychological symptoms, patient reportsno depression,no anxiety, andno pmdd.Preventative measuresFor preventive measures, patient reportsencourage self breast examination,encourage regular exercise,encourage no tobacco use,encourage regular mammograms starting age 40,needs to schedule mammogram, andup to date on colonoscopy screening. Serene Angeles, [facility]- [address], [place], [address], [facility] 03/16/2020 13:02:55 OBGyn Episode No OBEpisode recorded.
--- OUTSIDE RECORDS SUMMARY | 2025-04-25 10:33 | XMS_ITS | Encounter Summary ---
Author Organization [facility] Address [address] [place] [address] Care Team Providers Care Laboratory Manager Name Role Phone Unavailable Primary Care Provider Unavailabl e Encounter Details Date Type Department Care Team (Late st Contact Info) Description 06/24/2021 Lab Requisition [facility] Derm[facility] Lab [address] [place] [address] Jesus Hurst Jr., MD [address] [place] [address] Social History Tobacco Use Types Packs/Day Years Used Date Smoking Tobacco: Never Assessed Comments Unknown Sex and Gender Information Value Date Recorded Sex Assigned at Not on file Legal Sex Female 11:31 AM ASSOCIATE MEDIA PLANNER Gender Identity Not on file Sexual Orientation Not on file documented as of this encounter Plan of Treatment Not on file documented as of this encounter Procedures Procedure Name Priority Date/Time Associated Diagnosis Comments DERMATOPATHOLOGY Routine 06/23/2021 12:0 0 AM ASSOCIATE MEDIA PLANNER documented in this encounter Results * DERMATOPATHOLOGY (06/23/2021 12:00 AM ASSOCIATE MEDIA PLANNER) Case Report Dermatopathology Report Case: [id number] Authorizing Provider: Jesus Hurst Jr., MD Collected: 06/23/2021 12:00 AM Ordering Location: [facility] Derm[facility] Lab Received: 06/24/2021 11:46 AM Pathologist: Doyle Patricio MD Specimen: Skin, right chin 2 4:31 PM ASSOCIATE MEDIA PLANNER DERMATOPATHOLOGY LABORATORY Final Diagnosis Specimen A. SKIN, right chin: BASAL CELL CARCINOMA, NODULAR TYPE (C44.319) 2 4:31 PM ASSOCIATE MEDIA PLANNER DERMATOPATHOLOGY LABORATORY at [address] ASSOCIATE MEDIA PLANNER Clinical History Basal cell carcinoma. 2 4:31 PM [email or web address] DERMATOPATHOLOGY LABORATORY Gross Description Specimen A: Received is one formalin filled container labeled with the patient's name and designated right chin. The specimen consists of a shave biopsy measuring 4x4x1 mm. Jar 0. 2 4:31 PM [facility] [[email or web address]] DERMATOPATHOLOGY LABORATORY Microscopic Description Specimen A. SKIN, right chin: Within the dermis there are aggregates of basaloid cells with a high nuclear to cytoplasmic ratio and peripheral palisading. 2 4:31 PM [facility] [[email or web address]] DERMATOPATHOLOGY LABORATORY Disclaimer An external and internal [...] purposes. Billing Codes Specimen Charges Stain Charges 44339 1 2 4:31 PM ASSOCIATE MEDIA PLANNER DERMATOPATHOLOGY LABORATORY Embedded Images 2 4:31 PM [facility] [[email or web address]] DERMATOPATHOLOGY LABORATORY Pathology/Cytolog y TISSUE SPECIMEN FROM SKIN / Unknown 06/23/2021 06/24/2021 11:46 AM ASSOCIATE MEDIA PLANNER Jesus Hurst Jr., MD LAB - PATHOLOGY/CYTOLOG Y ORDERABLES Final Result DERMATOPATHOLOGY LABORATORY [facility] - Department of Dermatology [address] [place] [address], [facility] [phone] documented in this encounter Visit Diagnoses Not on filedocumented in this encounter
--- OUTSIDE RECORDS SUMMARY | 2025-04-25 10:33 | XMS_ITS | Clinical Summary ---
Author Organization [facility] Address [address] [place] [address] Care Team Providers Care Window Framer Name Role Phone Unavailable Primary Care Provider Unavailabl e Source Comments [facility],non-owned Affiliates and Associated Physician Practices is amultiple site organization consisting of ambulatory clinics and hospital sitesin [place], [place], [place] and [place]. This disclosure is being madepursuant to the Care Everywhere program and may not contain all information available regarding this patient. 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
--- OUTSIDE RECORDS SUMMARY | 2025-04-25 10:33 | XMS_ITS | Encounter Summary ---
Author Organization [facility] Healthcare Address [address] [place] [address] Care Team Providers Care Interface Engineer Name Role Phone Mac Slaughter MD Primary Care Provider [phone] Encounter Details Date Type Department Care Team (Late st Contact Info) Description 05/24/2018 Orders Only [facility] [place] [address] [place] [id number] Scanning, Provider Social History Tobacco Use Types Packs/Day Years Used Date Smoking Tobacco: Never Smokeless Tobacco: Never Alcohol Use Standard Drinks/Week Comments No 0 (1 standard drink = 0.6 oz pur e alcohol) Comments Unknown Sex and Gender Information Value Date Recorded Sex Assigned at Not on file Legal Sex Female 3:59 AM IRRIGATION SYSTEM OPERATOR Gender Identity Female 08/16/2020 2:35 PM CDT Sexual Orientation Straight 08/16/2020 2: 35 PM CDT documented as of this encounter Plan of Treatment Not on file documented as of this encounter Procedures Procedure Name Priority Date/Time Associated Diagnosis Comments CARDIOLOGY DOCUMENT SCAN 05/24/2018 4:21 AM IRRIGATION SYSTEM OPERATOR documented in this encounter Results * Cardiology Document Scan (05/24/2018 4:21 AM IRRIGATION SYSTEM OPERATOR) Anatomical Region Laterality Modality Other us Provider Scanning CV CARDIAC SERVICES PROCEDURES Final Result documented in this encounter Visit Diagnoses Not on filedocumented in this encounter Care Teams Interface Engineer Relationship Specialty Start Date End Date Mac Slaughter MD PCP - General 11/14/17 documented as of this encounter
[2025-04-25 10:34] LABS: Alanine Aminotransferase 21 U/L (6-35); Albumin Level 4.9 g/dL (3.5-5.1); Alkaline Phosphatase 89 U/L (38-126); Anion Gap 8 mmol/L (4-12); Aspartate Amino Transferase 33 U/L (14-36); Bilirubin,Total 0.7 mg/dL (0.2-1.3); Blood Urea Nitrogen 26 mg/dL (7-17); Calcium 9.8 mg/dL (8.4-10.2); Carbon Dioxide 29 mmol/L (22-30); Chloride 102 mmol/L (98-107); Estimated CRCL calculation 48 ml/min; Estimated Glomerular Filt Rate 57; Glucose 116 mg/dL (65-110); Lipase 213 U/L (23-300); Potassium 4.1 mmol/L (3.4-5.0); Sodium 139 mmol/L (137-145); Total Protein 8.2 g/dL (6.3-8.2)
[2025-04-25 10:40] LABS: Troponin I < 0.012 ng/mL (0.000-0.034)
--- NOTE | 2025-04-25 10:50 | ED.GENADULT ---
HPI - General Adult General Chief complaint: Chest Pain Stated complaint: chest discomfort radiates down right arm Time Seen by Provider: 04/25/25 10:23 History of Present Illness HPI narrative: Madyson Sims is a 64-year-old female who presents today with reports of having intermittent chest discomfort across the lower aspect of her chest under her breast for the past 3 days and intermittent radiation burning down her right arm. She states that she has been taking Prilosec it does correlate with eating at times but feels like it never goes away. She feels the Prilosec has helped a little bit but has not made it completely go away. She denies shortness of breath, cough, fever. No history of myocardial infarction or cardiac stents. She currently rates her pain at a 4/10 she took a baby aspirin prior to arrival. Related Data Home Medications ?Medication ?Instructions ?Recorded ?Confirmed ?Last Taken ?Type amlodipine 2.5 mg-benazepril 10 mg 1 cap PO DAILY 04/16/21 02/02/25 02/02/25 History capsule azelastine 205.5 mcg (0.15 %) 1 spray intranasal QHS PRN Nasal 04/16/21 02/02/25 Unknown History nasal spray Congestion cholecalciferol (vitamin D3) 25 25 mcg PO DAILY 04/16/21 02/02/25 02/02/25 History mcg (1,000 unit) capsule famotidine 10 mg tablet 20 mg PO DAILY 04/16/21 02/02/25 02/02/25 History fexofenadine 180 mg tablet 180 mg PO DAILY 04/16/21 02/02/25 02/02/25 History (Amy Allergy) guaifenesin 600 mg tablet, 600 mg PO DAILY 04/16/21 02/02/25 02/02/25 History extended release 12 hr (Mucinex) lamotrigine 200 mg tablet 200 mg PO BID 04/16/21 02/02/25 02/02/25 History levetiracetam 500 mg tablet 500 mg PO Q12H 04/16/21 02/02/25 02/02/25 History (Keppra) metoprolol tartrate 25 mg tablet 25 mg PO DAILY 04/16/21 02/02/25 02/02/25 History montelukast 10 mg tablet 10 mg PO HS 04/16/21 02/02/2525 History multivitamin (Daily Multi-Vitamin 1 tablet PO DAILY 04/16/21 02/02/25 02/02/25 History tablet) vitamin B complex (B 1 tablet PO DAILY 04/16/21 02/02/25 02/02/25 History Complex-Vitamin B12 tablet) simvastatin 40 mg tablet 40 mg PO HS 06/17/21 02/02/25 02/02/25 History estradiol 10 mcg vaginal tablet 10 mcg vaginal .semiweekly 02/02/25 02/02/25 01/19/25 History levothyroxine 75 mcg tablet 75 mcg PO DAILY 02/02/25 02/02/25 Unknown History (Levoxyl) terbinafine HCl 250 mg tablet 250 mg PO .1 week a month 02/02/25 02/02/25 12/06/24 History Allergies Allergy/AdvReac Type Severity Reaction Status Date / Time ciprofloxacin (From Cipro) Allergy Intermediate Dizziness Verified 04/25/25 10:16 cefuroxime Allergy Mild Vomiting Verified 04/25/25 10:16 latex Allergy Mild RASH ON Verified 04/25/25 10:16 CONTACT Contrast Media Allergy Severe HEAD AND Uncoded 09/29/23 13:21 EARS SWELL/RASH Review of Systems Review of Systems: All systems reviewed & are unremarkable except as noted in HPI and below PMFSH Past Medical History Medical History GERD (gastroesophageal reflux disease) Rosacea Hypothyroidism SVT (supraventricular tachycardia) Ovarian cyst Post-menopausal Seizures Hyperlipidemia Seasonal allergies Hypertension Surgical History Surgical History H/O partial thyroidectomy [place] teeth removed Family History Family History Sibling Hypertension Malignant neoplasm of prostate Mother Patient's mother is Father Patient's father is Social History Social History Smoking status: Never smoker Alcohol intake: never Substance use: never Lack of Transportation: No Lack of Food: Never True Current Housing: I Have Housing Concerned About Future Housing: No Difficulty Paying Gas/Electric Bills: No Difficulty Paying for Meds: No Currently Unemployed: No Education: Master's Degree or Higher Difficulty w/ Childcare or Family Care: No Living arrangements: with family Spiritual care concerns: No Exam Narrative: GENERAL: Well-appearing, well-nourished, and in no acute distress. HEAD: Normocephalic, atraumatic. EYES: PERRLA and EOMI. ENT: Nares clear, no rhinorrhea or epistaxis. Mucous membranes moist. Oropharynx without tonsillar hypertrophy exudate or other lesions. NECK: Supple. No adenopathy or masses. No carotid bruits or JVD CHEST: Clear to auscultation. No respiratory distress. No wheezes rales or rhonchi HEART: Regular rate and rhythm. No murmur heard. Normal peripheral pulses. ABDOMEN: Soft, nontender, nondistended, normal active bowel sounds. EXTREMITIES: Normal range of motion. No edema. SKIN: Warm, dry, no rash. NEURO: No focal deficits. Alert and oriented x3. PSYCH: Normal mood and affect. Course Vital Signs Vital signs: Vital Signs Temperature 36.4 C L 04/25/25 10:12 Pulse Rate 70 04/25/25 10:12 Respiratory Rate 19 04/25/25 10:12 Blood Pressure 137/73 04/25/25 10:12 Pulse Oximetry 100 04/25/25 10:12 Temperature 36.4 C L 04/25/25 10:12 Pulse Rate 75 04/25/25 14:27 Respiratory Rate 18 04/25/25 14:27 Blood Pressure 132/75 04/25/25 14:27 Pulse Oximetry 100 04/25/25 14:27 Oxygen Delivery Room Air 04/25/25 10:16 [facility] Narrative Medical decision making narrative: 64-year-old female who presents with complaints of having chest discomfort off and on for the past 2 days with radiating pain down her right arm that is burning in nature. She states that she does a history of GERD and she has been taking Prilosec that has helped some but feels that this pain is different than her previous GERD symptoms. She does feel like the pain at does correlate some with eating but then the pain never goes away which is different. In the radiation down the right arm is also different. She denies shortness of breath no palpitations but she is on a rate control medication as she has a history of SVT. No history of myocardial infarction, no cardiac stents. Concern for cardiac ischemia, pulmonary embolism, GERD, URI, pneumonia heart score 4-5 EKG sinus rhythm rate 83 Second EKG sinus rhythm rate 70 no significant changes from the 1st CBC no leukocytosis, hemodynamically stable, D-dimer is negative, coags within normal limits, CMP are BUN 26, GFR 57, glucose 116 both troponins are negative lipase is negative, chest x-ray no acute cardiopulmonary findings patient re-evaluated at 1410 and she states the pain is gone that what she was given here Pepcid and ketorolac made it go away she is feeling better. She says she was having right arm pain because she has been over using it and has knots it from that. I discussed with her that based on her hx we could bring her in for Cardiac Obs for serial labs, and echo- she says she had a normal echo done 3 months ago and has cardiology appt. early May. Using shared decision making pt would like to go home since feeling better and will return for any new pain/ return of pain/ SOB/ weakness/ dizziness/ palpitations. Her is with her and also decreases this plan he states the stable come back if she has any new or worsening symptoms take however since she is feeling better she would like to go home and she will be discharged home in stable condition. Differential Diagnosis Differential Diagnosis: cardiac ischemia, pulmonary embolism, GERD, URI, pneumonia Lab Data MDM Lab Attestation statement: I personally reviewed the patient's lab results. 04/25/25 10:12 04/25/25 10:12 Labs: Lab Results 04/25/25 04/25/25 Range/Units 10:12 13:12 WBC 5.1 (4.5-10.0) K/mm3 RBC 3.75 L (4.2-5.4) M/mm3 Hgb 12.3 (12.0-15.0) g/dL Hct 38.2 (37.0-47.0) % MCV 101.9 H (80-100) fl MCH 32.8 (26-34) pg MCHC 32.2 (32-36) g/dl RDW 12.4 (11.5-14.5) % Plt Count 237 (150-375) k/mm3 MPV 8.8 (7.4-10.4) fl Immature Gran % (Auto) 0.2 (0-0.5) % Neut % (Auto) 58.6 (45.5-73.1) % Lymph % (Auto) 25.3 (18.3-44.2) % [place] % (Auto) 14.1 H (2.6-8.5) % Eos % (Auto) 1.2 (0-4.4) % Baso % (Auto) 0.6 (0.2-1.2) % Lymph # (Auto) 1.29 (0.9-3.2) K/mm3 [place] # (Auto) 0.7 H (0.1-0.6) K/mm3 Eos # (Auto) 0.1 (0-0.3) K/mm3 Baso # (Auto) 0.0 (0.0-0.1) K/mm3 Abs Immat Gran (auto) 0.01 (0.00-0.031) K/mm3 Absolute Neuts (auto) 3.0 (1.3-6.7) K/mm3 Absolute Nucleated RBC 0.000 (0.0-0.012) K/mm3 Nucleated RBC % 0.0 (0.0-0.2) % PT 13.4 (11.1-14.7) Seconds INR 1.0 APTT 29.2 (22.3-36.8) Seconds D-Dimer 0.33 (<0.48) ug/mL Sodium 139 (137-145) mmol/L Potassium 4.1 (3.4-5.0) mmol/L Chloride 102 (98-107) mmol/L Carbon Dioxide 29 (22-30) mmol/L Anion Gap 8 (4-12) mmol/L BUN 26 H (7-17) mg/dL Creatinine 0.98 (0.7-1.0) mg/dL Estim Creat Clear Calc 48 ml/min Estimated GFR 57 L (59 - ) Glucose 116 H (65-110) mg/dL Calcium 9.8 (8.4-10.2) mg/dL Total Bilirubin 0.7 (0.2-1.3) mg/dL AST 33 (14-36) U/L ALT 21 (6-35) U/L Alkaline Phosphatase 89 (38-126) U/L Troponin I < 0.012 < 0.012 (0.000-0.034) ng/mL Total Protein 8.2 (6.3-8.2) g/dL Albumin 4.9 (3.5-5.1) g/dL Lipase 213 (23-300) U/L Imaging Data Radiologist's impression: ITS Impressions Chest X-Ray 04/25/25 10:59 Impression: No acute cardiopulmonary abnormality. ECG Data EKG #1: ECG completion date: 04/25/25 ECG completion time: 10:13 Prior ECG tracings: available for review Interpretation: Intervals [place] Rate: 70 P: 69 HI: 181 QRS: 80 QRSD: 118 T: 51 QT: 430 QTc: 466 Interpretive Statements SINUS RHYTHM INCOMPLETE RIGHT BUNDLE BRANCH BLOCK MINIMAL Q WAVES- LATERAL LEADS BASELINE ARTIFACT- I, II, III, AVR, AVL, AVF BORDERLINE ECG Compared to ECG 02/02/2025 09:50:18 EKG #2: ECG completion date: 04/25/25 ECG completion time: 09:50 Prior ECG tracings: available for review Interpretation: DX Tech I II III aVR aVL aVF V1 V2 V3 V4 V5 V6 II Rate 70 HI 181 QRSd 118 QT 430 QTc 466 --[place]-- P 69 QRS 80 T 51 SINUS RHYTHM INCOMPLETE RIGHT BUNDLE BRANCH BLOCK MINIMAL Q WAVES- LATERAL LEADS BASELINE ARTIFACT- I, II, III, AVR, AVL, AVF BORDERLINE ECG Compared to ECG 0 Discharge Plan Discharge Clinical Impression: Chest pain due to GERD, Atypical chest pain Patient Disposition: Home Condition: Stable Instructions: Antibiotic Form Additional Instructions: Continue your home medications, Follow up with GI and Cardiology as planned. Follow up with your PCP in 3-5 days If you develop recurring chest pain/ new or worsening symptoms/ shortness of breath/ cough then return to the ER. Patient Language: Scottish Prescriptions: No Action levetiracetam [Keppra] 500 mg tablet 500 mg PO Q12H metoprolol tartrate 25 mg tablet 25 mg PO DAILY amlodipine-benazepril 2.5-10 mg capsule 1 cap PO DAILY montelukast 10 mg tablet 10 mg PO HS famotidine 10 mg tablet 20 mg PO DAILY azelastine 205.5 mcg (0.15 %) spray,non-aerosol 1 spray intranasal QHS PRN (Reason: Nasal Congestion) Rx Instructions: administer into each nostril fexofenadine [Amy Allergy] 180 mg tablet 180 mg PO DAILY guaifenesin [Mucinex] 600 mg tablet extended release 12hr 600 mg PO DAILY vitamin B complex [B Complex-Vitamin B12] Tablet 1 tablet PO DAILY cholecalciferol (vitamin D3) 25 mcg (1,000 unit) capsule 25 mcg PO DAILY multivitamin [Daily Multi-Vitamin] Tablet 1 tablet PO DAILY lamotrigine 200 mg tablet 200 mg PO BID aspirin 81 mg capsule 81 mg PO DAILY Qty: 30 0RF levothyroxine [Levoxyl] 75 mcg tablet 75 mcg PO DAILY terbinafine HCl 250 mg tablet 250 mg PO .1 week a month Patient Comments: Patient states she takes this for 7 days the first week of the month. estradiol 10 mcg tablet 10 mcg VAGINAL .semiweekly meclizine [Antivert] 25 mg tablet,chewable 12.5 mg PO TID PRN (Reason: dizziness) Qty: 20 0RF simvastatin 40 mg tablet 40 mg PO HS Follow-up/Referrals: Sukhjinder,Mac Villela MD [Primary Care Provider] - 3 Days Time of Disposition: 14:17 Quality HEART score for chest pain patients History: slightly suspicious ECG: non specific repolarization disturbance/LBTB/PM Age: > or = to 65 years Risk factors: 1 or 2 risk factors Troponin: < or = to 1x normal limit Heart score: 4
[2025-04-25] MEDS: FAMOTIDINE 20 MG/2 ML VIAL IV PUSH (10:57)
[2025-04-25] MEDS: KETOROLAC 30 MG/ML VIAL (*BKC) IV PUSH (10:57)
--- OUTSIDE RECORDS SUMMARY | 2025-04-25 11:29 | XMS_ITS | Encounter Summary ---
Author Organization [facility] Healthcare Address [address] [place] [address] Care Team Providers Care Judo Instructor Name Role Phone Mac Slaughter MD Primary Care Provider [phone] Reason for Referral * Neurology (Routine) - Closed Specialty Diagnoses / Procedures Referred By Contac t Referred To Contact Neurology Diagnoses Numbness and tingling of upper extremity Procedures EMG/NCV -Please select the performing region: [facility] (All Locations); Procedure performed at: [facility]; Clinical Summary: numbness and tingling in the upper extremities; Reason for referral or diagnostic question: numbness and... Mac Slaughter MD Phone: tel: fax: [facility] Medicine Neurological Testing [address] [facility] Medicine [address] [place] [address] Phone: tel: fax: Referral ID Status Reason Start Date Expiration Date Visits Re quested Visits Authorized [id number] Closed 05/16/2019 11/24/2020 1 1 CAID SERVICE COORDINATOR Encounter Details Date Type Department Care Team (Late st Contact Info) Description 05/16/2019 Orders Only Internal Medicine Mac Slaughter MD [address] [facility] [address] [place], [place] [id number] Numbness and tingling of upper extremity (Primary Dx) Social History Tobacco Use Types Packs/Day Years Used Date Smoking Tobacco: Never Smokeless Tobacco: Never Alcohol Use Standard Drinks/Week Comments No 0 (1 standard drink = 0.6 oz pur e alcohol) Comments Unknown Sex and Gender Information Value Date Recorded Sex Assigned at Not on file Legal Sex Female 3:59 AM MEDICAID SERVICE COORDINATOR Gender Identity Female 08/16/2020 2:35 PM CDT Sexual Orientation Straight 08/16/2020 2: 35 PM CDT documented as of this encounter Progress Notes * Sana Thomason - 05/16/2019 1:21 PM CST ncs documented in this encounter Plan of Treatment Not on file documented as of this encounter Results * EMG/NCV (06/03/2019 2:30 PM MEDICAID SERVICE COORDINATOR) Anatomical Region Laterality Modality Other Narrative 06/03/2019 2:30 PM MEDICAID SERVICE COORDINATOR Kaci Smith MD 06/04/2019 9:29 AM EMG/NCV -Please select the performing region: [facility] (All Locations); Procedure performed at: [facility] EMG [facility]; Clinical Summary: numbness and [...] extremity documented in this encounter Care Teams Judo Instructor Relationship Specialty Start Date End Date Mac Slaughter MD PCP - General 11/14/17 documented as of this encounter
--- OUTSIDE RECORDS SUMMARY | 2025-04-25 11:29 | XMS_ITS | Encounter Summary ---
Author Organization [facility] Healthcare Address [address] [place] [address] Care Team Providers Care Hot Frame Tender Name Role Phone Mac Slaughter MD Primary Care Provider [phone] Encounter Details Date Type Department Care Team (Late st Contact Info) Description 05/24/2018 [place] Only [facility] [place] [address] [place] [id number] Scanning, Provider Social History Tobacco Use Types Packs/Day Years Used Date Smoking Tobacco: Never Smokeless Tobacco: Never Alcohol Use Standard Drinks/Week Comments No 0 (1 standard drink = 0.6 oz pur e alcohol) Comments Unknown Sex and Gender Information Value Date Recorded Sex Assigned at Not on file Legal Sex Female 3:59 AM CELL TENDER HELPER Gender Identity Female 08/16/2020 2:35 PM CDT Sexual Orientation Straight 08/16/2020 2: 35 PM CDT documented as of this encounter Plan of Treatment Not on file documented as of this encounter Procedures Procedure Name Priority Date/Time Associated Diagnosis Comments CARDIOLOGY DOCUMENT SCAN 05/24/2018 4:21 AM CELL TENDER HELPER documented in this encounter Results * Cardiology Document Scan (05/24/2018 4:21 AM CELL TENDER HELPER) Anatomical Region Laterality Modality Other us Provider Scanning CV CARDIAC SERVICES PROCEDURES Final Result documented in this encounter Visit Diagnoses Not on filedocumented in this encounter Care Teams Hot Frame Tender Relationship Specialty Start Date End Date Mac Slaughter MD PCP - General 11/14/17 documented as of this encounter
--- OUTSIDE RECORDS SUMMARY | 2025-04-25 11:30 | XMS_ITS | Encounter Summary ---
Author Organization [facility] Address [address] [facility] [place] [address] Care Team Providers Care Permaculture Designer Name Role Phone Unavailable Primary Care Provider Unavailabl e Encounter Details Date Type Department Care Team (Late st Contact Info) Description 06/24/2021 Lab Requisition [facility] DermPath Lab [address] [facility] [place] [address] Jesus Hurst Jr., MD [address] [facility] [address] [place] [address] Social History Tobacco Use Types Packs/Day Years Used Date Smoking Tobacco: Never Assessed Comments Unknown Sex and Gender Information Value Date Recorded Sex Assigned at Not on file Legal Sex Female 11:[address] Gender Identity Not on file Sexual Orientation Not on file documented as of this encounter Plan of Treatment Not on file documented as of this encounter Procedures Procedure Name Priority Date/Time Associated Diagnosis Comments DERMATOPATHOLOGY Routine 06/23/2021 12:[address] documented in this encounter Results * DERMATOPATHOLOGY (06/23/2021 12:[address] WORKER) Case Report Dermatopathology Report Case: [id number] Authorizing Provider: Jesus Hurst Jr., MD Collected: 06/23/2021 12:00 AM Ordering Location: [facility] DermPath Lab Received: 06/24/2021 11:46 AM Pathologist: Doyle Patricio MD Specimen: Skin, right chin 2 4:[address] DERMATOPATHOLOGY LABORATORY Final Diagnosis Specimen A. SKIN, right chin: BASAL CELL CARCINOMA, NODULAR TYPE (C44.319) 2 4:[address] DERMATOPATHOLOGY LABORATORY at [address] Clinical History Basal cell carcinoma. 2 4:31 PM [facility] DERMATOPATHOLOGY LABORATORY Gross Description Specimen A: Received is one formalin filled container labeled with the patient's name and designated right chin. The specimen consists of a shave biopsy measuring 4x4x1 mm. Jar 0. 2 4:31 PM [facility] DERMATOPATHOLOGY LABORATORY Microscopic Description Specimen A. SKIN, right chin: Within the dermis there are aggregates of basaloid cells with a high nuclear to cytoplasmic ratio and peripheral palisading. 2 4:31 PM [facility] DERMATOPATHOLOGY LABORATORY Disclaimer An external and internal positive and negative controls are appropriate for the histochemical, immunohistochemical and immunofluorescence stain(s) in this case (if any), except where stated explicitly. The performance characteristics of the stain(s) cited in this report were developed and its performance characteristic determined by the Dermatopathology Laboratory at [facility], directed by Dr. Preston Patricio. These tests need not be, and therefore are not, approved by the [place] Food and Drug Administration. The tests are used for clinical purposes. Billing Codes Specimen Charges Stain Charges 44653 1 2 4:[address] DERMATOPATHOLOGY LABORATORY Embedded Images 2 4:31 PM [facility] DERMATOPATHOLOGY LABORATORY Pathology/Cytolog y TISSUE SPECIMEN FROM SKIN / Unknown 06/23/2021 06/24/2021 11:[address] Jesus Hurst Jr., MD LAB - PATHOLOGY/CYTOLOG Y ORDERABLES Final Result DERMATOPATHOLOGY LABORATORY [facility] - Department of Dermatology [address] [place] [address], [facility] [phone] documented in this encounter Visit Diagnoses Not on filedocumented in this encounter
--- OUTSIDE RECORDS SUMMARY | 2025-04-25 11:30 | XMS_ITS | Clinical Summary ---
Author Organization [facility] Address [address] [place] [address] Care Team Providers Care Animal Attendants And Trainers Name Role Phone Mac Slaughter MD Primary Care Provider [phone] Allergies Active Allergy Reactions Criticality Noted Date [...] down If fails taper could continue Discussed intermediate card tender risks of PPI use F/U with Dr. Segura PRN Degenerative disc disease, lumbar 04/13/2022 Assessment & Plan (04/13/2022 10:41 AM TEST LEAD APPLICATION TESTING): Encouraged stretching/yoga and core building Recently rejoined [facility] Post-surgical hypothyroidism 10/12/2021 Assessment & Plan (05/22/2024 11:13 AM TEST LEAD APPLICATION TESTING): Stable. Labs next visit Assessment & Plan (10/12/2021 11:07 AM CDT): Labs today Has noted hair loss, no other symptoms Tinnitus of both ears 10/07/2019 Seasonal allergic rhinitis due to pollen 020 Localization-related symptom atic epilepsy and epileptic syndromes with complex partial seizures, not intractable, without status epilepticus 08/03/2018 Precordial pain 06/05/2018 SVT (supraventricular tachycardia) 06/05/2018 Assessment & Plan (04/13/2022 10:42 AM TEST LEAD APPLICATION TESTING): Follows with Cardiology Cervical radiculopathy 12/17/2015 Essential hypertension 08/26/2015 Overview (08/11/2016): Essential hypertension with goal blood pressure less than 140/90 Assessment & Plan (05/22/2024 11:13 AM TEST LEAD APPLICATION TESTING): Stable and doing well. Assessment & Plan (10/12/2021 11:06 AM CDT): At goal Continue current meds Pure hypercholesterolemia 08/26/2015 Overview (08/11/2016): Pure hypercholesterolemia Assessment & Plan (07/15/2020 10:32 AM TEST LEAD APPLICATION TESTING): Lipids reviewed today Has wellness exam October 2020 and would consider NMR lipid panel at that time Family history of coronary artery disease 2015 Overview (08/11/2016): Family history of premature CAD Epilepsy with partial complex seizures 6 Assessment & Plan (04/13/2022 10:42 AM TEST LEAD APPLICATION TESTING): Follows with Neuro Seizure free since 2009 [...] 10/12/2021 Assessment & Plan (07/15/2020 10:32 AM TEST LEAD APPLICATION TESTING): OTC NSAID's PRN Zanaflex (use, safety, s/e [...] Type Department Care Team Description 03/27/2025 Telephone [facility] [address] [place] [phone] Janice Renteria LPN Further expalation of diagnoses 03/20/2025 11:10 AM TEST LEAD APPLICATION TESTING Clinical Support [facility] [address], [address] [place] [address] Post-menopausal (Primary Dx); Osteopenia of multiple sites 03/18/2025 Results Follow-Up [facility] [address] [place] [address] Mac Slaughter MD Basic metabolic panel 03/12/2025 1:30 PM TEST LEAD APPLICATION TESTING Telemedicine [facility] [address] [place] [phone] Vanita Castanon NP Vertigo (Primary Dx) 03/10/2025 Orders Only [facility] [address] [place] [address] [place] [phone] Sana Thomason, RMA Essential hypertension (Primary Dx) 03/10/2025 Orders Only [facility] [address] [phone] Sana Thomason, RMA Seizures (HCC) (Primary Dx) 03/09/2025 Results Follow-Up [facility] [address] [phone] Mac Slaughter MD T4, free, TSH, Dexa TBS Axial Skeleton Bone Density 1 or more sites 03/06/2025 12:49 PM CDT - 03/06/2025 11:59 PM CDT Hospital Encounter [facility] [address] [place], [place] [id number] Hypothyroidism, unspecified type Discharge Disposition: Discharge to home or self care 03/06/2025 10:45 AM CDT Office Visit [facility] [address] [phone] Mac Slaughter MD Osteopenia of multiple sites (Primary Dx); Essential hypertension; Pure hypercholesterolemi a; Hypothyroidism, unspecified type 02/26/2025 1:45 PM CDT Procedure visit [facility] [address] [place] [phone] Marilynn Hood Dizziness (Primary Dx) 02/11/2025 11:30 AM CDT Office Visit [facility] [address] [place] [phone] Vanita Castanon NP Vertigo (Primary Dx); Tinnitus of both ears 02/11/2025 11:00 AM CDT Procedure visit [facility] [address] [place] [phone] Erwin Marilynnclau Whitaker Dizziness and giddiness (Primary Dx); Pressure sensation in both ears 02/04/2025 Orders Only [facility] [address] [place] [place] [phone] Mac Slaughter MD 02/03/2025 Orders Only [facility] [address] [place] [place] [phone] Mac Slaughter MD from Last 3 [...] on file Legal Sex Female 3:59 AM TEST LEAD APPLICATION TESTING Gender Identity Female 08/16/2020 2:35 PM CDT [...] (132 lb 9.6 oz) 03/20/2025 10:28 AM TEST LEAD APPLICATION TESTING Height 172 cm (5' 7.72) 03/20/2025 10:28 AM TEST LEAD APPLICATION TESTING Body Mass Index 20.33 03/20/2025 10:28 AM TEST LEAD APPLICATION TESTING Plan of Treatment Health Maintenance Due Date [...] Read Routine (OP Routine) 03/20/2025 10:58 AM TEST LEAD APPLICATION TESTING Osteopenia of multiple sites BASIC METABOLIC PANEL Routine 03/13/2025 3:13 PM TEST LEAD APPLICATION TESTING Essential hypertension T3, FREE Routine 03/06/2025 11:52 [...] Read Routine (OP Routine) 07/03/2024 10:28 AM TEST LEAD APPLICATION TESTING Encounter for screening mammogram for malignant neoplasm [...] 1 or more sites (03/20/2025 10:58 AM TEST LEAD APPLICATION TESTING) Anatomical Region Laterality Modality Wrist, Body N/A Radiographic Ekaterina ging Narrative 03/21/2025 8:46 AM TEST LEAD APPLICATION TESTING Patient Name: Madyson Sims Date of : 1960 Date of scan: 03/20/2025 Bone mineral density was performed on a HoloEnventum Discovery Densitometer. Based on machine cross-calibration and [...] bone mineral density scan were prepared by Katharine Zuluaga who is accredited by the International Society of Clinical Densitometry. The overall patient assessment and scan interpretation were performed by Soniya Martínez M.D. who is certified by the International Society of Clinical Densitometry. [id number] us Mac Slaughter MD [facility] DXA PROCEDURES Final Resu lt * (ABNORMAL) Basic metabolic panel (03/13/2025 3:13 PM TEST LEAD APPLICATION TESTING) Pathologist [facility] Glucose 104(H) 70 - 99 mg/dL [facility] [...] [facility] - 01 Blood 03/13/2025 3:13 PM TEST LEAD APPLICATION TESTING 03/13/2025 Narrative [facility] - 03/14/2025 7:10 AM TEST LEAD APPLICATION TESTING Performed at: [address] [id number] Percussion Welding Machine Operator: Song Brooks PhD, Phone: [phone] us Mac Slaughter MD LAB BLOOD ORDERABLES Final Re sult Performing Organization Address City/[facility]/ZIP Co de Phone Number [facility] * T3, free (03/06/2025 11:52 AM CDT) Free T3 2.9 2.0 - 4.4 pg/mL Blood 03/06/2025 11:5 2 AM CDT 03/06/2025 1:42 PM CDT us Mac Slaughter MD LAB BLOOD ORDERABLES Final Re sult Performing Organization Address [facility] Co de Phone Number [facility] [address] [facility] [place] [address] * TSH (03/06/2025 11:43 AM CDT) TSH 1.29 0.27 - 4.20 uIU/mL [facility] Blood 03/06/2025 11:4 3 AM CDT 03/06/2025 11:52 AM CDT us Mac Slaughter MD LAB BLOOD ORDERABLES Final Re sult [facility] [address] [facility] [address] [phone] * T4, free (03/06/2025 11:43 AM CDT) Free T4 1.69 0.93 - 1.70 ng/dL [facility] Blood 03/06/2025 11:4 3 AM CDT 03/06/2025 11:52 AM CDT us Mac Slaughter MD LAB BLOOD ORDERABLES Final Re sult [facility] [address] [address], [facility] * SCAN - RADIOLOGY/IMAGING (02/04/2025 8:25 AM [...] HPV HR 16 Not Detected Not Detected [facility] Comment:Testing performed by : [facility], [address] [place]., [address] HPV HR 18 Not Detected Not Detected [facility] Comment:Testing performed by : [facility], [address] [place]., [address] HPV HR Non 16/18 Not Detected Not [...] this test have been verified by the [facility] Infectious Disease laboratory. Correlate with separately reported cytology results, as applicable. Interpretive data last revised 22 Testing performed by: [facility], [address] [place] [address] Endocervical 08/01/2024 10:0 8 AM CDT 08/02/2024 4:30 PM CDT Narrative [facility] - 08/05/2024 7:20 PM CDT Clinical history and diagnosis->screening Testing type->Screening Last menstrual period (date if known)->postmenopausal Shannon Paiz MD LAB BODY FLUIDS AND STOOL S ORDERABLES Final Result [facility] [address] [facility] Department [place] [address] [facility] * Screening Mammogram Bilateral W Manohar (07/03/2024 10:28 AM TEST LEAD APPLICATION TESTING) Anatomical Region Laterality Modality Breast Bilateral Mammography Impressions 07/03/2024 12:46 PM TEST LEAD APPLICATION TESTING BI-RADS ATLAS category (overall): 1 - Negative There is no mammographic evidence of malignancy. A 1 year screening mammogram is recommended. The patient has been or will be contacted. We recommend annual screening mammography for women at average risk of breast cancer beginning at age 40, based on guidelines of the [employer] (ACR Practice Parameter for the Performance of Screening and Diagnostic Mammography) and [employer]. For women with and elevated risk of breast cancer, please refer to the ACR Practice Parameter for specific screening recommendations. The patient will be entered into a reminder system with a target due date of 1 year for her next screening exam. Narrative 07/03/2024 12:46 PM TEST LEAD APPLICATION TESTING Screening Mammogram Bilateral W Manohar: 07/03/24 The [...] 5:09 AM CDT Performed at: 01 - [place] [address] Percussion Welding Machine Operator: Song Brooks PhD, Phone: [phone] Mac Slaughter MD LAB MICROBIOLOGY - GENERAL OR DERABLES Final Result [facility] - 01 from Last 3 Months or Most Recently Relevant to Health Maintenance Insurance IMT OOS [facility] MEDICARE ADVANTAGE [facility] MEDICARE ADVANTAGE [facility] MEDICARE ADVANTAGE Care Teams Animal Attendants And Trainers Relationship Specialty Start Date End Date Mac Slaughter MD PCP - General 11/14/17
--- OUTSIDE RECORDS SUMMARY | 2025-04-25 11:30 | XMS_ITS | Clinical Summary ---
Author Organization [facility] Address [address] [place] [address] Care Team Providers Care Lining Parts Sewer Name Role Phone Unavailable Primary Care Provider Unavailabl e Source Comments [facility],non-owned Affiliates and Associated Physician Practices is amultiple site organization consisting of ambulatory clinics and hospital sitesin [place], [place], [place] and [place]. This disclosure is being madepursuant to the Care Everywhere program and may not contain all information available regarding this patient. Last updated 18.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
--- NOTE | 2025-04-25 13:07 | ECG_ITS ---
Test Date: 2025-04-25 13:21:09 Measurements Intervals Sandy Rate: 63 P: 56 LA: 193 QRS: 75 QRSD: 118 T: 58 QT: 445 QTc: 458 Interpretive Statements SINUS RHYTHM INCOMPLETE RIGHT BUNDLE BRANCH BLOCK BORDERLINE T WAVE ABNORMALITY- ANTERIOR LEADS BORDERLINE ECG Compared to ECG 04/25/2025 10:13:27 No significant changes Electronically Signed On 04-25-2025 13:56:14 GARAGE DOOR TECHNICIAN by Haile Mcpherson D.O.
[2025-04-25 13:42] LABS: Troponin I < 0.012 ng/mL (0.000-0.034)
[2025-04-25 14:27] VITALS: BP 132/75; PULSE 75; RESP 18; O2SAT 100
== END 2025-04-25 14:30 | disposition home or self-care (01) ==
PROVIDERS: Emergency Medicine; Emergency Provider Nurse Practitioner Family; PCP Internal Medicine
DX: K21.9 Gastro-esophageal reflux disease without esophagitis (principal); R07.89 Other chest pain; E03.9 Hypothyroidism, unspecified; E78.5 Hyperlipidemia, unspecified; I10 Essential (primary) hypertension
CPT/HCPCS: 36415; 71046; 80053; 83690; 84484; 85025; 85380; 85610; 85730; 93005; 96374; 96375; 99284; A9270; J1885